=== PATIENT | female | born 1960 | race Caucasian/White ===

== ENCOUNTER 2016-11-30 14:08 | Inpatient (IN) | payer MEDICARE, MEDICAID ==
[~2016-11-30] VITALS: Ht 167.6 cm; Wt 164.2 kg
--- NOTE | ~2016-11-30 | PR ---
[place], [place] [facility]GR[id number] #: [id number] ROOM: 521 DOCTOR: GAGAN SMITH,DECEMBER BIRTHDATE: [birth year] DOS: 12/06/2016 SUBJECTIVE: The patient is a 56-year-old morbidly obese female who is being followed for cellulitis of her bilateral lower extremities and tinea pedis. She has been having improvement of the swelling, pain and redness of her bilateral lower legs. The erythema does extend into her thighs. Denies any fevers, chills, nausea, vomiting or diarrhea. No cough or shortness of breath. No rash or itch. LABORATORY DATA: She has had no labs since this 12/04/2016. Her blood cultures are sterile. PHYSICAL EXAMINATION: VITAL SIGNS: Show temperature 98.3, pulse 64, respirations 18, BP 138/76. GENERAL: A 56-year-old morbidly obese female in no acute distress. HEAD, EYES, EARS, NOSE, AND THROAT: Normocephalic. No thrush. LUNGS: Clear to auscultation bilaterally. Respirations even and unlabored. HEART: Regular rhythm. No murmur appreciated. ABDOMEN: Soft, obese, nontender. EXTREMITIES: +3 to 4 edema bilateral lower extremities with erythema from ankles up to mid thighs especially medially, resolving tinea pedis. No open wounds or areas of fluctuance to indicate abscess. ASSESSMENT: Cellulitis of the bilateral lower extremities improving on Ancef. PLAN: We will continue the Ancef. We would anticipate discharging with high-dose Keflex in 24-48 hours. Case discussed with Dr. Angela Lopez. DECEMBER LUIS FARAH ANGELA LOPEZ MD CM:PNTRANS 31 10 GAGAN SMITH 12/06/161910 interface
--- NOTE | ~2016-11-30 | PR ---
[place], [place] PROGRESS NOTE NAME: VICTORINA MARES [facility] #: [id number] UNIT #: [id number] ROOM: 521 DOCTOR: HIWOT CALABRESE M.D. BIRTHDATE: [birth year] DOS: 12/08/2016 WOUND CARE FOLLOWUP NOTE SUBJECTIVE: The patient says she is feeling better. She says her legs are looking better. She denies any complaints with her abdominal wounds. Currently, she is just using some 4 x 4s to keep the fold . Her temp is 98.1, pulse of 71, respirations 18, blood pressure is 120/67. Abdominal wounds were examined. They do not appear to be open at this time. They seemed to have epithelialized. There is no sign of cellulitis with these abdominal wounds. Her lower extremity redness also appears improved. ASSESSMENT AND PLAN: Stage 2 ulcerations of the abdominal folds. They seemed to have epithelialized. They are not open. I would go ahead and discontinue the Aquacel Ag. I would recommend a drying powder such as Zeasorb prevention powder to be used daily as well as some 4 x 4s just to keep the skin fold . HIWOT CALABRESE MD CM:IVAN 1151 50 HIWOT CALABRESE M.D. 12/08/16 215 interface
--- NOTE | ~2016-11-30 | CON ---
[place], [place] REPORT OF CONSULTATION NAME: VICTORINA MARES [facility] #: [id number] UNIT #: [id number] ROOM: 521 DOCTOR: BHARATI HardenHIWOT BIRTHDATE: [birth year] DOS: 12/01/2016 WOUND CARE CONSULTATION HISTORY OF PRESENT ILLNESS: This is a 56-year-old female who presented to the Emergency Department with cellulitis of her bilateral lower extremities. She was admitted with subjective fevers and chills and failure of outpatient therapy. The patient was also noted to have abdominal wounds of her abdominal folds. This is why Wound Care has been consulted. PAST MEDICAL HISTORY: Significant for anxiety; asthma; chest pains; congestive heart failure; chronic kidney disease; depression; diabetes; edema; morbid obesity; GERD; obstructive sleep apnea, oxygen dependent; protein calorie malnutrition, moderate; history of venous stasis; status post rhinoplasty; hysterectomy; tonsillectomy; previous . She states she has had problems with cellulitis in the past as well as wounds of her abdominal folds. FAMILY HISTORY: Significant for diabetes, coronary artery disease, CVA in her father, diabetes and coronary artery disease in her mother. SOCIAL HISTORY: She does not smoke or drink. ALLERGIES: QUININE severe, PENICILLINS, CATGUT SUTURES, BACITRACIN, IODINE, NEOMYCIN, POLYMYXIN, AMPICILLIN, DIAZEPAM, HYDROMORPHONE, AND MEPERIDINE. CURRENT MEDICATIONS: That have been ordered are as follows 1600 mg of Neurontin p.o. daily, 800 mg of Neurontin at 2:00; potassium 20 t.i.d., MiraLax 17 grams daily, Theragran one tablet daily, furosemide 20 p.o. b.i.d., Pepcid 20 daily, Lovenox 40 subq daily, Cymbalta 60 p.o. daily, Zyrtec 10 mg daily, aspirin 81 daily, Wellbutrin 150 daily, Protonix 40 daily, Neurontin 2000 mg at bedtime, Desyrel 150 mg at bedtime, clindamycin 600 mg IV q.8 hours, MS Contin 30 mg p.o. q.12h., Dulera q.12h. inhalation, Xanax 0.25 q.12h., Maxipime, which has been discontinued; albuterol nebulizers 2.5 mg daily, [place] 2 tablets q.8 p.r.n., Humalog sliding scale. REVIEW OF SYSTEMS: She had subjective fevers and chills and pain. She does report falling approximately 2 days ago, which she may have injured her right leg. She is not quite sure if she had an open wound or not. She says her left leg is feeling much better. However, she still has a lot of discomfort with her right lower extremity. She has a chronic cough. She denies any nausea or vomiting or diarrhea at the present time. She says her abdominal wounds are definitely improving and getting much smaller. She has had them for about 2-3 weeks. She follows up with Dr. Borrero in [facility]. She has been using at one point Aquacel she thinks and then it was later switched to a powder which is I believe a collagen dressing. At one point, she was on antifungal as well, which did not seem to help her. In any case, those wounds are definitely getting better. PHYSICAL EXAMINATION: VITAL SIGNS: Her temperature is 97.1, pulse of 66, respirations 20, blood [place], [place] REPORT OF CONSULTATION NAME: VICTORINA MARES UNIT #: [id number] ROOM: 521 DOCTOR: HIWOT CALABRESE M.D. BIRTHDATE: [birth year] pressure is 108/64. GENERAL: This is a pleasant female in no acute distress. She is morbidly obese, appears chronically debilitated, pleasant, and cooperative. NECK: There is no JVD. LUNGS: Clear to auscultation; however, she does provoke a very dry cough when she takes deep breaths. CARDIOVASCULAR: S1, S2 regular rate and rhythm. ABDOMEN: Morbidly obese. She has several small areas. EXTREMITIES: There was an area of what appears to be a fissure type injury on the left part of the abdominal fold that is approximately 1.5-2 cm in length. There is very minimal width to it. No depth to it. It looks like it is partially epithelialized at this time. Not cellulitic. There is no purulence. There is another very small area that is approximately the size of a smaller than a dime. I would say on the right lower abdominal fold that is still somewhat open, but does not appear purulent, does not appear infected. There is no overt necrotic tissue. There are a few punctate lesions scattered throughout the lower. Her bilateral lower extremities, there is evidence of venous stasis, chronic edema. It is pitting. The right leg seems more swollen than the left. The left leg is definitely not as red as the right. The right leg is still markedly erythematous and tender and warm. It is circumferential around the almost entire leg. There is also evidence of venous stasis disease. Pedal pulses are difficult to feel, but her feet are warm and toes are warm. She has good capillary refill. There is no calf tenderness upon examination and there is really no open areas on her legs that I could see. She does have she states a feeling of a she thought it was a firm, tender feeling on the left medial calf area. It is hard for me to feel something there, but I do feel a slight variation in the firmness of the calf around this area, but it does not appear to be overtly fluctuant or markedly indurated or markedly tender at this time. LABORATORY DATA: Show white count of 6, hemoglobin of 12, platelets of 202. BUN is 14, creatinine 1.6, HDL 67, B12 was high, vitamin D25 is low at 28. I do not appreciate a recent venous Doppler. ASSESSMENT AND PLAN: Pressure ulcers of the abdominal folds that do appear to be epithelializing. At this point, they do seem somewhat superficial. According to the patient and her , they were fairly much larger and much more open before. I would use a silver dressing to help absorb any drainage. I think are Aquacel silver rope would actually be good for this area and also we should pad it with some 4 x 4s to try to keep the abdominal fold , but it does appear to be in the healing stages at this time. As far as her cellulitis goes, I do not appreciate any open wounds at this time, but due to her complaints of continued pain and discomfort and swelling, I did take the liberty of ordering a venous Doppler for this to be done in the morning. She is on antibiotics per the medical team. I will follow along with you. ADDENDUM I just wanted to mention that I did discuss if she has ever had compression for her lower extremity swelling and she said she is really unable to tolerate it. She says even just DEO juan manuel digs quite in to her and causes further problems, so [place], [place] REPORT OF CONSULTATION NAME: VICTORINA MARES UNIT #: [id number] ROOM: 521 DOCTOR: BHARATI Harden,HIWOT BIRTHDATE: [birth year] she is pretty adamant about not wanting any type of compression at this time. HIWOT CALABRESE MD CM:CONSTR:REPORT OF CONSULTATION 1835 12/09/16 1500 interface
--- NOTE | ~2016-11-30 | PR ---
[place], [place] PROGRESS NOTE NAME: VICTORINA MARES UNIT #: [id number] ROOM: 521 DOCTOR: JESSICA PABLO,ANGELA Hart BIRTHDATE: [birth year] DOS: 12/06/2016 ADDENDUM I agree with the above described plans in the progress note of Tonia Mckeon on 12/06/2016. We will follow up clinically and make adjustments accordingly. ANGELA LOPEZ MD CM:PNTRANS 16 36 ANGELA LOPEZ MD 12/06/161936 interface
[~2016-11-30 14:08] MED LIST: ADVAIR DISKUS 51 DSK IH; ADVIL200 MG PO; ALDACTONE25 MG PO; ANTIVERT/2525 MG PO; ASPIR 8181 MG PO; ATIVAN0.5 MG PO; Albuterol Sulfat3 M1 IH; BACTRIM DS 8001 TA1 PO; BRAIN MIGHT-DH1 EACH PO; BUMETANIDE1 MG PO; CEFTRIAXON2 GM/50 ML IV; CELEBREX200 MG PO; CENTRUM1 TA1 PO; CEPHALEXIN500 M1 PO; CIPRO500 MG PO; CIPROFLOXACIN500 MG PO; CLEOCIN HCL300 MG PO; CLINDAMYCIN HC300 MG PO; COLACE100 MG PO; CYMBALTA60 MG PO; DESYREL DIVIDO150 MG PO; DIFLUCAN100 MG PO; DIFLUCAN150 MG PO; DOXYCYCLINE100 M3 PO; DUONEB 3 MG/3 ML3 M1 INH; FLEXERIL10 MG PO; FLEXERIL5 MG; FLUCONAZOLE100 MG PO; IBU-8800 MG PO; K-Dur 20MEQ20 MEQ PO; KCL PO; KEFLEX500 M1 PO; KEFLEX500 MG PO; KENALOG0.5% TP; LASIX20 MG PO; LOMOTIL 0.025 M1 TAB PO; MAALOX ADVANCE355 ML PO; MACROBID100 M1 PO; MEDROL DOSEPAK4 MG PO; MIRALAX17 GM PO; MOBIC15 MG PO; MS CONTIN15 MG PO; NEURONTIN800 MG PO; NEXIUM40 MG PO; POTASSIUM CHLO20 ME4 PO; PREDNICOT10 MG PO; PREDNISONE10 MG PO; PREMARIN V0.625 MG/G V; PREMARIN0.3 MG PO; PRILOSEC40 MG PO; PROAIR HFA0.09 MG/AC IH; PYRIDIUM200 MG PO; ROBITUSSIN AC 110 ML PO; SPECIAL C 5001 EACH PO; SYMBICORT1 AE1 INH; TORADOL10 MG PO; ULTRAM50 MG PO; VIBRAMYCIN100 MG PO; VICO10300 PO; VICODIN 5/500 505 MG PO; VICODIN HP 6601 TA1 PO; VICODIN HP 6601 TAB PO; VISTARIL25 MG PO; VOLTAREN T; WELLBUTRIN SR150 MG PO; WELLBUTRIN XL300 MG PO; WELLBUTRIN75 MG PO; XANAX0.25 MG PO; XODOL PO; ZANTAC 150150 MG PO; ZITHROMAX Z PA250 MG PO; ZOFRAN ODT4 MG SL; ZOFRAN4 MG PO; ZYRTEC10 M1 PO; Zofran4 MG PO
[2016-11-30 14:13] VITALS: BP 150/56
[2016-11-30] MEDS ORDERED: [UNRECOGNIZED DRUG - OTHER] T (14:17)
[2016-11-30] MEDS ORDERED: NYSTATIN60 GM T (14:17)
[2016-11-30 15:02] LABS: BASO % 0.6 % (0.0-1.0); EOS # 0.2 10*3/uL (0.0-0.4); EOS % 2.6 % (1.0-4.0); HEMATOCRIT 37.5 % (37.0-47.0); HEMOGLOBIN 12.5 g/dl (12.0-16.0); LYMPH % 28.4 % (27.0-41.0); MEAN CELL VOLUME 93.8 fl (81.0-99.0); MEAN CORPUSCULAR HGB 31.3 pg (27.0-31.0); MEAN CORPUSCULAR HGB CONC 33.3 g/dl (33.0-37.0); MEAN PLATELET VOLUME 8.9 fl (9.6-12.3); MONO # 0.6 10*3/uL (0.1-1.0); MONO % 9.2 % (3.0-9.0); NEUT % 58.9 % (47.0-73.0); PLATELET COUNT AUTOMATED 216 10*3/uL (130-400); RED CELL DISTRI WIDTH 12.6 % (0-14.5); WHITE BLOOD COUNT 6.9 10*3/uL (4.8-10.8)
[2016-11-30 15:18] LABS: ALBUMIN 3.3 gm/dl (3.1-4.5); ALKALINE PHOSPHATASE 81 U/L (45-117); BILIRUBIN, TOTAL 0.6 mg/dl (0.2-1.0); BUN 16 mg/dl (7-24); CARBON DIOXIDE 33 mmol/L (21-32); CHLORIDE 102 mmol/L (98-107); CPK 142 U/L (26-192); EST GLOM FILT AFRICAN AMERICAN > 60 ml/min; GLUCOSE 82 mg/dL (65-99); LDH 220 U/L (84-246); MAGNESIUM 2.3 mg/dL (1.5-2.1); POTASSIUM 4.2 mmol/L (3.5-5.1); SGOT/AST 21 IU/L (3-35); SGPT/ALT 24 U/L (12-78); SODIUM 142 mmol/L (136-145); TOTAL PROTEIN 7.3 gm/dL (6.4-8.2)
[2016-11-30 15:20] LABS: CKMB 1.9 ng/ml (0.5-3.6)
[2016-11-30 15:23] LABS: TROPONIN I < 0.015 ng/ml (<0.045)
[2016-11-30 17:03] VITALS: BP 125/54
[2016-11-30 20:00] VITALS: BP 115/67
[2016-12-01] VITALS: BP 95/51
[2016-12-01 06:26] LABS: BASO % 0.5 % (0.0-1.0); EOS # 0.2 10*3/uL (0.0-0.4); HEMATOCRIT 37.3 % (37.0-47.0); HEMOGLOBIN 12.1 g/dl (12.0-16.0); LYMPH # 2.7 10*3/uL (1.3-4.4); LYMPH % 44.8 % (27.0-41.0); MEAN CELL VOLUME 94.7 fl (81.0-99.0); MEAN CORPUSCULAR HGB 30.7 pg (27.0-31.0); MEAN CORPUSCULAR HGB CONC 32.4 g/dl (33.0-37.0); MEAN PLATELET VOLUME 9.3 fl (9.6-12.3); MONO # 0.5 10*3/uL (0.1-1.0); MONO % 8.2 % (3.0-9.0); NEUT # 2.6 10*3/uL (2.3-7.9); NEUT % 43.3 % (47.0-73.0); PLATELET COUNT AUTOMATED 202 10*3/uL (130-400); RED BLOOD COUNT 3.94 10*6/uL (4.10-5.10)
[2016-12-01 06:56] LABS: INTERNATIONAL NORM RATIO 0.9 (2.0-3.5); PROTHROMBIN TIME 9.7 SECONDS (9.0-12.4)
[2016-12-01 06:57] LABS: BUN 14 mg/dl (7-24); CARBON DIOXIDE 33 mmol/L (21-32); CHLORIDE 103 mmol/L (98-107); CHOLESTEROL 158 mg/dL (<200); EST GLOM FILT AFRICAN AMERICAN > 60 ml/min; GLUCOSE 86 mg/dL (65-99); HDL CHOLESTEROL 67 mg/dl (40-60); LDL CHOLESTEROL 73 mg/dL (9-159); POTASSIUM 4.1 mmol/L (3.5-5.1); SODIUM 142 mmol/L (136-145); TRIGLYCERIDES 90 mg/dl (<150); VLDL CHOLESTEROL 18 mg/dL (6-40)
[2016-12-01 07:20] LABS: HEMOGLOBIN A1c 5.5 % (4.8-5.6)
[2016-12-01 07:29] LABS: VITAMIN D, 25-HYDROXY 28.3 ng/mL (30-100)
[2016-12-01 07:31] LABS: FOLIC ACID > 24.00 ng/mL (>5.38)
[2016-12-01 08:00] VITALS: BP 100/72
[2016-12-01] MEDS ORDERED: NEURONTIN800 MG PO (09:22)
[2016-12-01 12:00] VITALS: BP 108/50
[2016-12-01 16:00] VITALS: BP 108/64
[2016-12-01 20:00] VITALS: BP 127/66
[2016-12-02] VITALS: BP 117/56
[2016-12-02 08:00] VITALS: BP 100/50
[2016-12-02 12:00] VITALS: BP 137/75
[2016-12-02 16:00] VITALS: BP 101/57
[2016-12-02 20:00] VITALS: BP 117/63
[2016-12-03] VITALS: BP 134/76
[2016-12-03 07:15] LABS: BUN 12 mg/dl (7-24); CARBON DIOXIDE 30 mmol/L (21-32); CHLORIDE 104 mmol/L (98-107); EST GLOM FILT AFRICAN AMERICAN > 60 ml/min; GLUCOSE 85 mg/dL (65-99); POTASSIUM 3.7 mmol/L (3.5-5.1); SODIUM 143 mmol/L (136-145)
[2016-12-03 08:00] VITALS: BP 114/76
[2016-12-03 12:00] VITALS: BP 117/63
[2016-12-03 16:00] VITALS: BP 108/55
[2016-12-03 20:00] VITALS: BP 145/75
[2016-12-04] VITALS: BP 131/69
[2016-12-04 06:04] LABS: BASO % 0.5 % (0.0-1.0); EOS # 0.2 10*3/uL (0.0-0.4); HEMATOCRIT 36.8 % (37.0-47.0); HEMOGLOBIN 11.8 g/dl (12.0-16.0); LYMPH # 2.1 10*3/uL (1.3-4.4); LYMPH % 35.9 % (27.0-41.0); MEAN CELL VOLUME 95.6 fl (81.0-99.0); MEAN CORPUSCULAR HGB 30.6 pg (27.0-31.0); MEAN CORPUSCULAR HGB CONC 32.1 g/dl (33.0-37.0); MEAN PLATELET VOLUME 9.3 fl (9.6-12.3); MONO # 0.4 10*3/uL (0.1-1.0); MONO % 7.5 % (3.0-9.0); NEUT % 51.9 % (47.0-73.0); PLATELET COUNT AUTOMATED 202 10*3/uL (130-400); RED BLOOD COUNT 3.85 10*6/uL (4.10-5.10); RED CELL DISTRI WIDTH 12.6 % (0-14.5); WHITE BLOOD COUNT 5.7 10*3/uL (4.8-10.8)
[2016-12-04 06:52] LABS: BUN 13 mg/dl (7-24); EST GLOM FILT AFRICAN AMERICAN > 60 ml/min
[2016-12-04 08:00] VITALS: BP 110/50
[2016-12-04 12:00] VITALS: BP 127/79
[2016-12-04 16:00] VITALS: BP 91/63
[2016-12-04 20:00] VITALS: BP 116/50
[2016-12-05] VITALS: BP 144/81
[2016-12-05 08:00] VITALS: BP 111/58
[2016-12-05 12:00] VITALS: BP 134/72
[2016-12-05 16:00] VITALS: BP 115/50
[2016-12-05 20:00] VITALS: BP 108/60
[2016-12-06] VITALS: BP 137/64
[2016-12-06 08:00] VITALS: BP 94/80
[2016-12-06 12:00] VITALS: BP 130/88
[2016-12-06 16:00] VITALS: BP 138/76
[2016-12-06 20:00] VITALS: BP 148/94
[2016-12-07] VITALS: BP 109/65
[2016-12-07 06:09] LABS: BASO % 0.5 % (0.0-1.0); EOS # 0.2 10*3/uL (0.0-0.4); EOS % 3.9 % (1.0-4.0); HEMATOCRIT 39.8 % (37.0-47.0); HEMOGLOBIN 12.8 g/dl (12.0-16.0); LYMPH # 2.2 10*3/uL (1.3-4.4); LYMPH % 36.6 % (27.0-41.0); MEAN CELL VOLUME 95.4 fl (81.0-99.0); MEAN CORPUSCULAR HGB 30.7 pg (27.0-31.0); MEAN CORPUSCULAR HGB CONC 32.2 g/dl (33.0-37.0); MEAN PLATELET VOLUME 9.5 fl (9.6-12.3); MONO # 0.5 10*3/uL (0.1-1.0); MONO % 7.9 % (3.0-9.0); NEUT % 50.9 % (47.0-73.0); PLATELET COUNT AUTOMATED 214 10*3/uL (130-400); RED BLOOD COUNT 4.17 10*6/uL (4.10-5.10); RED CELL DISTRI WIDTH 12.6 % (0-14.5)
[2016-12-07 06:37] LABS: EST GLOM FILT AFRICAN AMERICAN > 60 ml/min
[2016-12-07 08:00] VITALS: BP 98/48
[2016-12-07 12:00] VITALS: BP 107/58
[2016-12-07 16:00] VITALS: BP 120/68
[2016-12-07 20:00] VITALS: BP 102/51
[2016-12-08] VITALS: BP 143/76
[2016-12-08 08:00] VITALS: BP 120/67
[2016-12-08 12:00] VITALS: BP 126/68
[2016-12-08] MEDS ORDERED: CEFAZOLIN2 GM/20 ML IV (13:24)
[2016-12-08 16:00] VITALS: BP 127/78
[2016-12-08 20:00] VITALS: BP 110/73
[2016-12-09] VITALS: BP 134/71
[2016-12-09 08:00] VITALS: BP 102/56
[2016-12-09] MEDS ORDERED: D-1000 185 MG-11 TAB PO (10:02)
[2016-12-09] MEDS ORDERED: DIFLUCAN150 MG PO (10:59)
== END 2016-12-09 11:30 | disposition home health service (06) | DRG 603 ==
LOC: ED 14:08 → 5E 15:54 → EDHOLD 15:54 → 5E 16:16
PROVIDERS: Internal Medicine; Physician Assistant; Student in an Organized Health Care Education/Training Program
PROC: 5A09357 Assistance with Respiratory Ventilation, Less than 24 Consecutive Hours, Continuous Positive Airway Pressure (ICD-10-PCS; principal; 2016-12-08)
PROC: 02HV33Z Insertion of Infusion Device into Superior Vena Cava, Percutaneous Approach (ICD-10-PCS; principal; 2016-12-08)
DX: L03.116 Cellulitis of left lower limb (principal); J96.11 Chronic respiratory failure with hypoxia; E44.0 Moderate protein-calorie malnutrition; I50.32 Chronic diastolic (congestive) heart failure; I13.0 Hypertensive heart and chronic kidney disease with heart failure and stage 1 through stage 4 chronic kidney disease, or unspecified chronic kidney disease; Z68.43 Body mass index [BMI] 50.0-59.9, adult; E11.65 Type 2 diabetes mellitus with hyperglycemia; E83.41 Hypermagnesemia; J45.20 Mild intermittent asthma, uncomplicated; F41.9 Anxiety disorder, unspecified; F32.9 Major depressive disorder, single episode, unspecified; K21.9 Gastro-esophageal reflux disease without esophagitis; I87.8 Other specified disorders of veins; G47.33 Obstructive sleep apnea (adult) (pediatric); E66.01 Morbid (severe) obesity due to excess calories; E55.9 Vitamin D deficiency, unspecified; E11.22 Type 2 diabetes mellitus with diabetic chronic kidney disease; L03.115 Cellulitis of right lower limb; L89.892 Pressure ulcer of other site, stage 2; E11.622 Type 2 diabetes mellitus with other skin ulcer; N18.3 Chronic kidney disease, stage 3 (moderate); Z88.0 Allergy status to penicillin; Z88.8 Allergy status to other drugs, medicaments and biological substances; Z91.048 Other nonmedicinal substance allergy status; Z88.1 Allergy status to other antibiotic agents; Z91.041 Radiographic dye allergy status; Z82.3 Family history of stroke; Z99.81 Dependence on supplemental oxygen; Z82.49 Family history of ischemic heart disease and other diseases of the circulatory system; Z83.3 Family history of diabetes mellitus; Z90.710 Acquired absence of both cervix and uterus; Z79.1 Long term (current) use of non-steroidal anti-inflammatories (NSAID); Z79.82 Long term (current) use of aspirin; Z79.899 Other long term (current) drug therapy

== ENCOUNTER 2016-12-20 14:21 | Emergency (ER) | payer MEDICARE, MEDICAID ==
[~2016-12-20] VITALS: Ht 167.6 cm; Wt 161.5 kg
[~2016-12-20 14:21] MED LIST changes: +CEFAZOLIN2 GM/20 ML IV; +D-1000 185 MG-11 TAB PO; +NYSTATIN60 GM T; +[UNRECOGNIZED DRUG - OTHER] T
[2016-12-20 14:35] VITALS: BP 151/78
[2016-12-20 15:22] LABS: BASO % 0.5 % (0.0-1.0); EOS # 0.2 10*3/uL (0.0-0.4); EOS % 3.5 % (1.0-4.0); HEMATOCRIT 38.5 % (37.0-47.0); HEMOGLOBIN 12.6 g/dl (12.0-16.0); LYMPH # 2.3 10*3/uL (1.3-4.4); LYMPH % 35.5 % (27.0-41.0); MEAN CELL VOLUME 93.9 fl (81.0-99.0); MEAN CORPUSCULAR HGB 30.7 pg (27.0-31.0); MEAN CORPUSCULAR HGB CONC 32.7 g/dl (33.0-37.0); MEAN PLATELET VOLUME 9.2 fl (9.6-12.3); MONO # 0.5 10*3/uL (0.1-1.0); MONO % 7.3 % (3.0-9.0); NEUT # 3.5 10*3/uL (2.3-7.9); PLATELET COUNT AUTOMATED 197 10*3/uL (130-400); RED CELL DISTRI WIDTH 12.3 % (0-14.5); WHITE BLOOD COUNT 6.6 10*3/uL (4.8-10.8)
[2016-12-20 15:32] LABS: INTERNATIONAL NORM RATIO 0.9 (2.0-3.5); PROTHROMBIN TIME 9.9 SECONDS (9.0-12.4)
[2016-12-20 15:38] LABS: ALBUMIN 3.6 gm/dl (3.1-4.5); ALKALINE PHOSPHATASE 89 U/L (45-117); BILIRUBIN, TOTAL 0.4 mg/dl (0.2-1.0); BUN 13 mg/dl (7-24); CARBON DIOXIDE 35 mmol/L (21-32); CHLORIDE 103 mmol/L (98-107); EST GLOM FILT AFRICAN AMERICAN > 60 ml/min; GLUCOSE 99 mg/dL (65-99); POTASSIUM 4.8 mmol/L (3.5-5.1); SGOT/AST 25 IU/L (3-35); SGPT/ALT 9 U/L (12-78); SODIUM 145 mmol/L (136-145); TOTAL PROTEIN 7.3 gm/dL (6.4-8.2)
== END 2016-12-20 17:15 | disposition home or self-care (01) ==
LOC: ED 14:21
PROVIDERS: Registered Nurse
DX: M79.601 Pain in right arm (principal); Z88.0 Allergy status to penicillin; Z88.1 Allergy status to other antibiotic agents; Z88.6 Allergy status to analgesic agent; Z88.8 Allergy status to other drugs, medicaments and biological substances; Z79.899 Other long term (current) drug therapy; Z79.82 Long term (current) use of aspirin

== ENCOUNTER 2016-12-22 18:01 | Emergency (ER) | payer MEDICARE, MEDICAID ==
[~2016-12-22] VITALS: Wt 161.5 kg
[2016-12-22 18:19] VITALS: BP 126/53
== END 2016-12-22 20:47 | disposition home or self-care (01) ==
LOC: ED 18:01
DX: I82.611 Acute embolism and thrombosis of superficial veins of right upper extremity (principal); Z79.82 Long term (current) use of aspirin; Z88.0 Allergy status to penicillin; Z88.1 Allergy status to other antibiotic agents; Z88.6 Allergy status to analgesic agent; Z88.8 Allergy status to other drugs, medicaments and biological substances; Z79.899 Other long term (current) drug therapy

== ENCOUNTER 2016-12-26 13:48 | Emergency (ER) | payer MEDICARE, MEDICAID ==
[~2016-12-26] VITALS: Ht 167.6 cm; Wt 161.5 kg
[2016-12-26 13:58] VITALS: BP 100/46
[2016-12-26] MEDS ORDERED: KEFLEX500 M1 PO (14:02)
[2016-12-26] MEDS ORDERED: PREMARIN0.3 M1 PO (14:02)
[2016-12-26 14:39] LABS: INTERNATIONAL NORM RATIO 0.9 (2.0-3.5); PROTHROMBIN TIME 9.7 SECONDS (9.0-12.4)
[2016-12-26 14:40] LABS: BASO % 0.5 % (0.0-1.0); EOS # 0.3 10*3/uL (0.0-0.4); EOS % 4.6 % (1.0-4.0); HEMATOCRIT 37.9 % (37.0-47.0); HEMOGLOBIN 12.5 g/dl (12.0-16.0); LYMPH % 32.3 % (27.0-41.0); MEAN CORPUSCULAR HGB 30.3 pg (27.0-31.0); MEAN PLATELET VOLUME 9.2 fl (9.6-12.3); MONO # 0.6 10*3/uL (0.1-1.0); MONO % 8.8 % (3.0-9.0); NEUT # 3.3 10*3/uL (2.3-7.9); NEUT % 53.2 % (47.0-73.0); PLATELET COUNT AUTOMATED 189 10*3/uL (130-400); RED BLOOD COUNT 4.12 10*6/uL (4.10-5.10); RED CELL DISTRI WIDTH 12.5 % (0-14.5); WHITE BLOOD COUNT 6.3 10*3/uL (4.8-10.8)
[2016-12-26 14:48] LABS: ALBUMIN 3.3 gm/dl (3.1-4.5); ALKALINE PHOSPHATASE 84 U/L (45-117); BILIRUBIN, TOTAL 0.4 mg/dl (0.2-1.0); BUN 15 mg/dl (7-24); C-REACTIVE PROTEIN 2.23 MG/DL (0-0.3); CARBON DIOXIDE 37 mmol/L (21-32); CHLORIDE 104 mmol/L (98-107); EST GLOM FILT AFRICAN AMERICAN > 60 ml/min; GLUCOSE 80 mg/dL (65-99); POTASSIUM 4.5 mmol/L (3.5-5.1); SGOT/AST 18 IU/L (3-35); SGPT/ALT 13 U/L (12-78); SODIUM 143 mmol/L (136-145); TOTAL PROTEIN 7.2 gm/dL (6.4-8.2)
== END 2016-12-26 16:16 | disposition home or self-care (01) ==
LOC: ED 13:48
PROVIDERS: Physician Assistant
DX: M25.562 Pain in left knee (principal); Z79.899 Other long term (current) drug therapy; Z79.82 Long term (current) use of aspirin; Z88.0 Allergy status to penicillin; Z88.1 Allergy status to other antibiotic agents; Z88.8 Allergy status to other drugs, medicaments and biological substances; Z88.6 Allergy status to analgesic agent

== ENCOUNTER 2017-05-27 13:35 | Emergency (ER) | payer MEDICARE ==
[~2017-05-27] VITALS: Ht 167.6 cm; Wt 166.9 kg
[~2017-05-27 13:35] MED LIST changes: +PREMARIN0.3 M1 PO
[2017-05-27 13:48] VITALS: BP 116/59
[2017-05-27] MEDS ORDERED: KEFLEX500 M1 PO (14:12)
[2017-05-27] MEDS ORDERED: DIFLUCAN150 MG PO (14:12)
== END 2017-05-27 14:23 | disposition home or self-care (01) ==
LOC: ED 13:35
DX: L03.116 Cellulitis of left lower limb (principal); K08.89 Other specified disorders of teeth and supporting structures; J44.9 Chronic obstructive pulmonary disease, unspecified; Z98.890 Other specified postprocedural states; Z90.710 Acquired absence of both cervix and uterus; Z96.653 Presence of artificial knee joint, bilateral; Z90.89 Acquired absence of other organs; Z79.82 Long term (current) use of aspirin; Z79.899 Other long term (current) drug therapy; Z88.0 Allergy status to penicillin; Z88.1 Allergy status to other antibiotic agents; Z88.5 Allergy status to narcotic agent; Z88.6 Allergy status to analgesic agent; Z99.81 Dependence on supplemental oxygen

== ENCOUNTER → 2017-06-17 | Outpatient (CLI) | payer MEDICARE ==
[2017-06-17 08:49] LABS: BASO % 0.5 % (0.0-1.0); EOS # 0.2 10*3/uL (0.0-0.4); EOS % 3.7 % (1.0-4.0); HEMATOCRIT 39.4 % (37.0-47.0); HEMOGLOBIN 12.6 g/dl (12.0-16.0); LYMPH # 2.6 10*3/uL (1.3-4.4); LYMPH % 42.1 % (27.0-41.0); MEAN CELL VOLUME 95.2 fl (81.0-99.0); MEAN CORPUSCULAR HGB 30.4 pg (27.0-31.0); MEAN PLATELET VOLUME 9.6 fl (9.6-12.3); MONO # 0.5 10*3/uL (0.1-1.0); MONO % 7.9 % (3.0-9.0); NEUT # 2.8 10*3/uL (2.3-7.9); NEUT % 45.3 % (47.0-73.0); PLATELET COUNT AUTOMATED 194 10*3/uL (130-400); RED BLOOD COUNT 4.14 10*6/uL (4.10-5.10); RED CELL DISTRI WIDTH 12.7 % (0-14.5); WHITE BLOOD COUNT 6.2 10*3/uL (4.8-10.8)
[2017-06-17 09:02] LABS: CHOLESTEROL 166 mg/dL (<200); HDL CHOLESTEROL 49 mg/dl (40-60); LDL CHOLESTEROL 84 mg/dL (9-159); TRIGLYCERIDES 165 mg/dl (<150); VLDL CHOLESTEROL 33 mg/dL (6-40)
[2017-06-17 09:06] LABS: ALBUMIN 3.4 gm/dl (3.1-4.5); ALKALINE PHOSPHATASE 94 U/L (45-117); BILIRUBIN, DIRECT 0.2 mg/dL (0.0-0.2); BUN 15 mg/dl (7-24); CHLORIDE 100 mmol/L (98-107); CREATININE 1.11 mg/dL (0.55-1.02); IRON 73 ug/dL (50-170); MAGNESIUM 2.3 mg/dL (1.5-2.1); POTASSIUM 4.1 mmol/L (3.5-5.1); SGOT/AST 24 IU/L (3-35); SGPT/ALT 22 U/L (12-78); SODIUM 141 mmol/L (136-145); TOTAL IRON BINDING CAPACITY 255 ug/dl (250-450); TOTAL PROTEIN 7.6 gm/dL (6.4-8.2)
[2017-06-17 09:58] LABS: FERRITIN 40.1 ng/mL (10.0-291.0); PTH INTACT 119.1 pg/mL (14.0-72.0); VITAMIN D, 25-HYDROXY 27.4 ng/mL (30-100)
== END | disposition home or self-care (01) ==
LOC: LAB 07:56
PROVIDERS: Internal Medicine; Internal Medicine Nephrology
DX: I12.9 Hypertensive chronic kidney disease with stage 1 through stage 4 chronic kidney disease, or unspecified chronic kidney disease (principal); N18.3 Chronic kidney disease, stage 3 (moderate); E11.22 Type 2 diabetes mellitus with diabetic chronic kidney disease; E11.65 Type 2 diabetes mellitus with hyperglycemia; E55.9 Vitamin D deficiency, unspecified; D63.1 Anemia in chronic kidney disease

== ENCOUNTER 2017-07-26 11:45 | Inpatient (IN) | payer MEDICARE ==
[~2017-07-26] VITALS: Ht 170.1 cm; Wt 168.0 kg
--- NOTE | ~2017-07-26 | CON ---
[place], [place] REPORT OF CONSULTATION NAME: VICTORINA MARES [facility] #: [id number] UNIT #: [id number] ROOM: 426 DOCTOR: JERO SORIANO MD BIRTHDATE: [birth year] DOS: 07/27/2017 REASON FOR CONSULTATION: To assess the patient for ongoing acute exacerbation of bronchial asthma, failed outpatient treatment. HISTORY OF PRESENT ILLNESS: A 57-year-old white female known to me with past history of chronic severe hypoxic respiratory failure, uncomplicated severe persistent bronchial asthma and obstructive sleep apnea disorder. She has been seen in my office recently. The patient reported having gradual increase in the respiratory symptoms for a few days. She has been assessed in the office. The patient noted with acute exacerbation of bronchial asthma, started on the corticosteroids and also ordered the antibiotics. The patient has taken the medication and failed to respond to the treatment. The symptoms have been noted progressively worsening. She came into the Emergency Room for further assessment. She was seen in my office on 07/15/2017. She was noted with symptoms of severe coughing. The patient unable to expectorate sputum. Denies symptoms of chest pain. Shortness of breath was noted with minimal exertion. REVIEW OF SYSTEMS: CONSTITUTIONAL SYMPTOMS: Progressive fatigue and tiredness occurred in the last several days. Denies any fever or chills. EYES: Denies any burning, redness, or tenderness. EARS, NOSE, AND THROAT SYMPTOMS: Denies sore throat, hoarseness, otalgia, postnasal drainage or epistaxis. CARDIOVASCULAR: Denies anginal pain, edema or pain of the lower extremities. GASTROINTESTINAL: Dysphagia, nausea, vomiting, diarrhea, abdominal pain, hematemesis, melena, hematochezia, chronic obesity, known. GENITOURINARY: No dysuria, suprapubic pain, hematuria. MUSCULOSKELETAL: Acute joint pain, redness, tenderness. SKIN: No lesions or rashes described. CENTRAL NERVOUS SYSTEM: Denies dizziness, headache, diplopia or syncopal episodes. Remaining systems were reviewed. They were noted all negative. PAST MEDICAL HISTORY: 1. She was known with history of morbid obesity. 2. Essential hypertension. 3. Hypercholesterolemia. 4. Osteoarthritis. 5. Allergic rhinitis. 6. Gastroesophageal reflux. 7. Chronic hypoxic respiratory failure, use of oxygen 4 liter nasal cannula. 8. Obstructive sleep apnea disorder for this patient, treated with CPAP of 9 cm of water since 2012. 9. Uncomplicated severe persistent bronchial asthma. PAST SURGICAL HISTORY: 1. Partial hysterectomy. 2. T and A. [place], [place] REPORT OF CONSULTATION NAME: VICTORINA MARES [facility] #: [id number] UNIT #: [id number] ROOM: 426 DOCTOR: JERO SORIANO MD BIRTHDATE: [birth year] 3. Hemorrhoidectomy. 4. Total knee replacement bilaterally. 5. Left foot surgery for management of the osteomyelitis. 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 Denies any history of alcohol use or any illicit drug use. She has 2 children, lives at home. FAMILY HISTORY: The patient's father at age of 81 due to complication of diabetes mellitus and hypertension. Mother at the age of 8080 years old due to complication related to dementia. MEDICATIONS: Current administered medication. The patient was noted as use of multivitamin, MiraLax, Cymbalta, estrogen, vitamin D, Zyrtec, Wellbutrin-XL, aspirin, Lovenox for DVT prophylaxis, Neurontin high dose, Mucinex, IV Solu-Medrol 60 mg q.8 hours, trazodone, Neurontin, Dulera, DuoNeb q.4h., Zithromax and IV Rocephin. She was also getting the p.r.n. other medications. DRUG ALLERGIES: Noted as allergies: 1. PENICILLINS. 2. VALIUM. 3. BACITRACIN. 4. QUININE. 5. DEMEROL. 6. DILAUDID. PHYSICAL EXAMINATION: GENERAL: A 57-year-old female who has been currently noted awake and alert at this time without any acute distress at the time of the assessment. Her height was recorded by the nursing staff at the time of current admission with height of 5 feet 7 inches, weight of 370 pounds, BMI 58.0. VITAL SIGNS: The temperature recorded normal since admission, respiratory rate 18-24, heart rate 64-77, blood pressure 118/78-105/50. Pulse oxygen saturation, patient at rest on 3 liter nasal cannula noted 94% saturation. HEENT: Severe obesity. Decreased posterior pharyngeal space. Head was atraumatic. Eyes nonicterus. CARDIOVASCULAR: S1, S2 audible. LUNGS: Noted diffuse reduction in breath sounds bilaterally with moderate expiratory wheezing. ABDOMEN: Noted soft severe obesity. Bowel sounds present without tenderness. EXTREMITIES: Shows chronic obesity without any edema. MUSCULOSKELETAL: No acute deformities. VISIBLE SKIN: No lesions or rashes. CENTRAL NERVOUS SYSTEM: Cranial nerves 2-12 intact. LABORATORY DATA: CBC yesterday on admission, WBC count 11.1, otherwise normal. The lactic acid yesterday normal on admission. PT/PTT yesterday on admission was normal. CMP on yesterday admission, BUN 21, creatinine 1.10. Remaining CMP normal. CBC this morning remains normal. BMP, glucose 161, normal BUN and creatinine. Troponin 3 sets for the patient last [address] of [place], [place] REPORT OF CONSULTATION NAME: VICTORINA MARES UNIT #: [id number] ROOM: 426 DOCTOR: ALEJANDRO SORIANO MDM BIRTHDATE: [birth year] the head reported by the radiologist without any acute intracranial abnormalities. CT scan of chest was also done for the patient yesterday without contrast was reviewed, this does not show any acute pulmonary infiltration or other acute abnormalities of concern. Chest x-ray on 07/26 was also reviewed and noted without any acute abnormalities. IMPRESSION: 1. The patient who has been admitted to the hospital, failed outpatient treatment for acute exacerbation of bronchial asthma and acute bronchitis. 2. History of chronic hypoxic respiratory failure, stable. 3. History of obstructive sleep apnea disorder treated with CPAP, remains stable. 4. Generalized weakness and fatigue for this patient with the symptoms appear due to current acute illness and infection. 5. Chronic morbid obesity for this patient and multiple other medical problems noted in the past history. PLAN OF TREATMENT: Agree with current use of corticosteroid dose, use of the bronchodilators and oxygen supplementation, use of CPAP from home will be continued as tolerated. The patient would not require any use of the BiPAP at this time, arterial blood gas assessment. She seemed to be responding to treatment. The patient with partial reduction of symptom noted. Since hospitalization yesterday noted much more awake and alert as per patient. Collect the sputum for Gram stain and culture as well. The antibiotic for the patient remains unchanged as well. There was no evidence of pneumonia. Continue Mucinex and flutter valve usage. The medical management of hyperglycemia secondary to corticosteroids will be continued as well. Additional treatment changes will be made based on progression of the illness. Thanks for allowing me to participate in the care of this patient. JERO BOB MD CM:CONSTR:REPORT OF CONSULTATION 1310 07/28/17 0100 interface
--- NOTE | ~2017-07-26 | PR ---
[place], [place] PROGRESS NOTE NAME: VICTORINA MARES UNIT #: [id number] ROOM: 426 DOCTOR: DIEUDONNE ENRIQUEZ DO BIRTHDATE: [birth year] DOS: There is note is to be attached to the one dictated by Dr. Bob separately. SUBJECTIVE: The patient was seen today. She was awake and responsive. She stated she is feeling significantly better in terms of respiratory status, much faster than she thought she would. She denies any chest pain, nausea, vomiting, diarrhea. OBJECTIVE: VITAL SIGNS: Temperature 98.1, pulse is 78, respiratory rate 20, blood pressure 144/58, bedside pulse oximetry is 98% on 3 liters nasal cannula. HEENT: No change. RESPIRATORY: Some bilateral wheezes and diminished breath sounds. CARDIOVASCULAR: S1, S2 heard. Normal rate and rhythm. ABDOMEN: Soft, nontender, obese. LABORATORY DATA: WBC is 11.0, hemoglobin and hematocrit 12.1 and 37.8, platelets 191. Sodium 139, potassium 4.3, chloride 105, carbon dioxide 30, creatinine 0.85. IMPRESSION AND PLAN: 1. Resolution or continued improvement of the acute exacerbation of bronchial asthma. 2. Obstructive sleep apnea. 3. Chronic hypoxic respiratory failure. PLAN: Continue with supplement, with the breathing treatments and the patient can be discharged on a prednisone taper today if okay by the primary team. Otherwise, please see Dr. Bob's note for more details. DIEUDONNE ENRIQUEZ DO [place], [place] PROGRESS NOTE NAME: VICTORINA MARES UNIT #: [id number] ROOM: 426 DOCTOR: DIEUDONNE ENRIQUEZ DO BIRTHDATE: [birth year] JERO BOB MD CM:PNTRANS 1121 1211 DIEUDONNE ENRIQUEZ DO 07/29/17 1212 interface
--- NOTE | ~2017-07-26 | PR ---
[place], [place] PROGRESS NOTE [id number] #: [id number] ROOM: 426 DOCTOR: JERO SORIANO MD BIRTHDATE: [birth year] DOS: 07/28/2017 SUBJECTIVE: She remains in the hospital. The patient noted with reduction in symptoms of shortness of breath, cough and improvement of the generalized weakness and fatigue. Denies symptoms of chest pain. Shortness of breath has been decreased. The coughing frequency and intensity was also resolving. There were no reported symptoms of chest pain at this time. OBJECTIVE: VITAL SIGNS: Normal temperature, respiratory rate 20, heart rate 69, blood pressure 144/66. Pulse oxygen saturation recorded as 96% on 3 liters cannula. HEENT: Showed no acute change. NECK: Supple. CARDIOVASCULAR: S1, S2 audible. LUNGS: Moderate decreased breath sounds, mild expiratory wheezing improvement noted with previous examination. ABDOMEN: Soft and obese. EXTREMITIES: Noted without any edema. LABORATORY DATA: Labs today. Blood culture which were done on the of this month showed no bacterial growth. No other labs were done at the present time. IMPRESSION: 1. The patient with resolving acute exacerbation of bronchial asthma noted uncomplicated, severe, persistent with acute bacterial bronchitis. 2. Obstructive sleep apnea disorder. 3. Chronic hypoxic respiratory failure. PLAN OF TREATMENT: Continuation of the oxygen supplementation and bronchodilators. Decrease the oxygen supplementation for this. Decrease rather the Solu-Medrol dose to 40 mg b.i.d. from 60 mg q.8 h. Assess the response to the changes in the treatment. Other supportive therapy, plan of management and care. Usual treatment. All other plan of therapy and management. Additional treatment changes will be done based on progression of illness. [place], [place] PROGRESS NOTE NAME: VICTORINA MARES UNIT #: [id number] ROOM: 426 DOCTOR: JERO SORIANO MD BIRTHDATE: [birth year] JERO BOB MD CM:PNTRANS 1119 0030 JERO GALLOWAY MD 07/29/17 0031 interface
--- NOTE | ~2017-07-26 | PR ---
[place], [place] PROGRESS NOTE NAME: VICTORINA MARES [facility] #: [id number] UNIT #: [id number] ROOM: 426 DOCTOR: LISBETH GALLOWAY MD,JERO BIRTHDATE: [birth year] DOS: 07/29/2017 SUBJECTIVELY: The patient was independently seen and examined in [id number] encounter. The labs were reviewed. Physical examination performed. History confirmed. All the available labs were reviewed. Decision to medical management changes or others were personally done for the patient at today's visit. The note done by the quality engineer medical device was approved. She has been showing progressive reduction and improvement in the respiratory symptom coughing, shortness breath and wheezing in the last 24 hours. She was continuing the steroids, bronchodilators and antibiotics. OBJECTIVE: VITAL SIGNS: Reviewed and they were noted normal. Pulse ox saturation remained normal range on 3 liters as usual home oxygen at 98%. Auscultation of chest, occasional wheezing was noted. ABDOMEN: Soft, nontender. EXTREMITIES: Noted without any edema. IMPRESSION: 1. The patient was currently noted at this time with responding to the treatment for acute exacerbation of bronchial asthma. Sputum culture preliminary showing normal catie. She could be discharged home on oral antibiotics as Levaquin as well as a tapering dose of prednisone. PLAN OF TREATMENT: Outpatient followup to be continued previously without any changes as well. No additional treatment changes will be necessary. JERO BOB MD CM:PNTRANS 1045 1243 JERO GALLOWAY MD 08/05/17 1902 interface
[2017-07-26 12:12] VITALS: BP 118/78
[2017-07-26 12:43] VITALS: BP 119/78
[2017-07-26 12:43] LABS: BASO # 0.1 10*3/uL (0.0-0.1); BASO % 0.5 % (0.0-1.0); EOS # 0.3 10*3/uL (0.0-0.4); EOS % 2.4 % (1.0-4.0); HEMOGLOBIN 13.4 g/dl (12.0-16.0); LYMPH # 4.3 10*3/uL (1.3-4.4); LYMPH % 38.8 % (27.0-41.0); MEAN CELL VOLUME 93.8 fl (81.0-99.0); MEAN CORPUSCULAR HGB 30.7 pg (27.0-31.0); MEAN CORPUSCULAR HGB CONC 32.7 g/dl (33.0-37.0); MEAN PLATELET VOLUME 9.2 fl (9.6-12.3); MONO % 9.3 % (3.0-9.0); NEUT # 5.4 10*3/uL (2.3-7.9); NEUT % 48.5 % (47.0-73.0); PLATELET COUNT AUTOMATED 227 10*3/uL (130-400); RED BLOOD COUNT 4.37 10*6/uL (4.10-5.10); RED CELL DISTRI WIDTH 12.6 % (0-14.5)
--- NOTE | 2017-07-26 12:45 | NUR ---
PATIENT IS ALERT AND ORIENTED X3, SITTING UP IN THE BED SIGNIFCANT OTHER PRESENT IN THE ROOM AT THIS TIME, RESPIRAITONS ARE EASY AND NONLABORED, PATIENT IS RESTING IN BED, CALL LIGHT IN REACH OF THE PATIENT, CONTINUING TO MONITOR THE PATIENT. MACRN
[2017-07-26 12:51] LABS: ACT PARTIAL THROMBO TIME 20.5 SECONDS (20.8-31.5); INTERNATIONAL NORM RATIO 0.9 (2.0-3.5)
[2017-07-26 12:58] LABS: ALBUMIN 3.4 gm/dl (3.1-4.5); ALKALINE PHOSPHATASE 95 U/L (45-117); BUN 21 mg/dl (7-24); CHLORIDE 100 mmol/L (98-107); LIPASE 108 U/L (73-393); POTASSIUM 3.9 mmol/L (3.5-5.1); SGOT/AST 18 IU/L (3-35); SGPT/ALT 30 U/L (12-78); SODIUM 138 mmol/L (136-145); TOTAL PROTEIN 7.3 gm/dL (6.4-8.2)
[2017-07-26 13:01] LABS: TROPONIN I < 0.015 ng/ml (<0.045)
[2017-07-26 13:25] VITALS: BP 123/94
--- NOTE | 2017-07-26 14:10 | NUR ---
PATIENT TAKEN TO ROOM 426 PLACED IN THE BED AND ON THE CHURN DRILL OPERATOR, PA AND RN AWARE OF THE PATIENT, AND CARE TRANSFERRED TO MIK SHAIKH RN. NYA WATTS
[2017-07-26 14:15] VITALS: BP 129/58
--- NOTE | 2017-07-26 14:30 | NUR ---
Time: 1429 A 57 year old FEMALE admitted to under services of ELZA SCHRADER DO. Pt. arrived via bed from ER. Chief complaint: DIZZINESS,BLURRED VISION,LIGHTHEADEDNESS. MIK SHAIKH
[2017-07-26] MEDS ORDERED: XANAX0.25 MG PO (14:45)
[2017-07-26] MEDS ORDERED: WELLBUTRIN XL150 MG PO (14:46)
--- NOTE | 2017-07-26 17:22 | NUR ---
DR. BOB NOTIFIED OF CONSULT.
--- NOTE | 2017-07-26 17:42 | NUR ---
PT MEDICATED WITH PRN ROBITUSSIN AND NORCO FOR C/O COUGH AND GENERALIZED PAIN. MEDS WERE OVER ROAD IN [facility] DUE TO IT BEING DOWN AT THIS TIME AND CHARTED ON PAPER MAR ON CHART. HOME MEDS VERIFIED WITH PATIENT BUT UNAVAILABLE FROM PHARMACY AT THIS TIME.
[2017-07-26 19:00] LABS: BILIRUBIN NEGATIVE (NEGATIVE); BLOOD NEGATIVE (NEGATIVE); CLARITY SL CLOUDY (CLEAR); COLOR YELLOW (YELLOW); GLUCOSE NEGATIVE (NEGATIVE); KETONE NEGATIVE (NEGATIVE); LEUKO ESTERASE NEGATIVE (NEGATIVE); NITRITE NEGATIVE (NEGATIVE); PH 5.5 (5.0-9.0); UROBILINOGEN 0.2 E.U./dl (0.2-1.0)
[2017-07-26 19:07] LABS: BACTERIA 1+; RBC 0-2 rbc/hpf (0-2); WBC 0-2 wbc/hpf (0-5)
[2017-07-26 20:00] VITALS: BP 133/67
--- NOTE | 2017-07-26 22:37 | NUR ---
FLUTTER STARTED ON PT. PERFORMS WELL, ENCOURAGED TO DO EVERY HOUR X10 BREATHS
[2017-07-27] VITALS: BP 135/74
--- NOTE | 2017-07-27 02:47 | NUR ---
PATIENT REQUESTED NORCO FOR GEN. BODY PAIN 04/16. NORCO GIVEN PER PRN ORDER.
--- NOTE | 2017-07-27 03:45 | NUR ---
PATIENT SLEEPING. PAIN MEDICATION APPEARS TO BE EFFECTIVE
[2017-07-27 07:27] LABS: BASO % 0.3 % (0.0-1.0); HEMATOCRIT 39.3 % (37.0-47.0); HEMOGLOBIN 12.5 g/dl (12.0-16.0); LYMPH # 1.2 10*3/uL (1.3-4.4); LYMPH % 15.5 % (27.0-41.0); MEAN CELL VOLUME 94.9 fl (81.0-99.0); MEAN CORPUSCULAR HGB 30.2 pg (27.0-31.0); MEAN CORPUSCULAR HGB CONC 31.8 g/dl (33.0-37.0); MEAN PLATELET VOLUME 9.4 fl (9.6-12.3); MONO # 0.1 10*3/uL (0.1-1.0); MONO % 1.8 % (3.0-9.0); NEUT # 6.3 10*3/uL (2.3-7.9); PLATELET COUNT AUTOMATED 212 10*3/uL (130-400); RED BLOOD COUNT 4.14 10*6/uL (4.10-5.10); RED CELL DISTRI WIDTH 12.5 % (0-14.5); WHITE BLOOD COUNT 7.7 10*3/uL (4.8-10.8)
[2017-07-27 07:47] LABS: BUN 19 mg/dl (7-24); CHLORIDE 102 mmol/L (98-107); PHOSPHOROUS 3.3 mg/dL (2.5-4.9); POTASSIUM 4.8 mmol/L (3.5-5.1); SODIUM 138 mmol/L (136-145)
[2017-07-27 07:52] LABS: THYROID STIM HORMONE (HS) 0.438 uIU/ml (0.358-4.75)
[2017-07-27 08:00] VITALS: BP 105/50
--- NOTE | 2017-07-27 08:30 | NUR ---
Electric Cutter Operator in to talk to patient. Patient states lives at HOME with HER . There are 1 steps in the home. Physician: DR MACKEY [facility]acy: [facility] Home health services: NONE Patient's level of ADLs: INDEPENDENT Patient has working utilities: YES DME: WALKER/CANE/NEB/CPAP/ O2 BMS Follow-up physician's appointment after d/c: WILL BE MADE PRIOR TO DC Does patient want to access PORTAL?: Discharge plan HOME. KEITH HARP
--- NOTE | 2017-07-27 10:10 | NUR ---
PATIENT VERY ANXIOUS AND REQUESTED XANAX. PATIENT GIVEN XANAX, WILL REASSESS PATIENT'S ANXIETY IN 30 MIN.
--- NOTE | 2017-07-27 10:40 | NUR ---
PATIENT STATES SHE DOES FEEL BETTER AFTER RECIEVING XANAX.
[2017-07-27 12:00] VITALS: BP 124/57
[2017-07-27 16:00] VITALS: BP 135/74
[2017-07-27 20:00] VITALS: BP 152/78
--- NOTE | 2017-07-27 20:00 | NUR ---
ASSUMED CARE OF PATIENT. ASSESSMENT COMPLETE. RESTING IN BED. O2 INTACT. CALL LIGHT IN REACH. WILL CONTINUE TO MONITOR.
[2017-07-28] VITALS: BP 114/47
--- NOTE | 2017-07-28 | NUR ---
PT C/O NAUSEA. NO ORDERS, CALLED AND SPOKE TO DR SUTTON. ORDER RECEIVED.
--- NOTE | 2017-07-28 00:40 | NUR ---
PATIENT MEDICATED WITH ONE TIME ZOFRAN FOR C/O NAUSEA
--- NOTE | 2017-07-28 01:30 | NUR ---
PT STATES EARLEIR ZOFRAN EFFECTIVE
--- NOTE | 2017-07-28 02:00 | NUR ---
SLEEPING. RESP EASY. CPAP INTACT. IVF INFUSING PER ORDER WITHOUT DIFFICULTY. CALL LIGHT IN REACH. WILL CONTINUE TO MONITOR.
--- NOTE | 2017-07-28 06:11 | NUR ---
MEDICATED WITH PRN NORCO FOR C/O BACK PAIN. RATES 03/16.
[2017-07-28 08:00] VITALS: BP 144/66
--- NOTE | 2017-07-28 11:09 | NUR ---
PATIENT C/O ANXIETY AND A HEADACHE. ATIVAN GIVEN PER ORDER. RATES HEADACHE PAIN 5/10, TYLENOL GIVEN PER ORDER.
--- NOTE | 2017-07-28 11:59 | NUR ---
PHYSICAL THERAPY PAtient evaluated on 4, full evaluation to follow. Continue with PT as per planof care with fall, 02 and significant dyspnia at rest precautions. Qualifies for SNF but insistant on kelechi to home. will require 24/7 family assist and complete home health services. PAtient is high complexity via chart review, tests and evaluation: 60494. Thank you for this referral. Eileen Lofton,PT
[2017-07-28 12:00] VITALS: BP 117/50
--- NOTE | 2017-07-28 12:00 | NUR ---
PATIENT STATES PRNS ARE EFFECTIVE.
--- NOTE | 2017-07-28 15:34 | NUR ---
PATIENT COMPLAINING OF PAIN IN HER BACK, MEDICATED WITH NORCO AT THIS TIME.
[2017-07-28 16:00] VITALS: BP 148/73
--- NOTE | 2017-07-28 17:00 | NUR ---
PRN PO NORCO WAS EFFECTIVE, PER PATIENT.
--- NOTE | 2017-07-28 19:05 | NUR ---
PATIENT C/O SEVERE FRONTAL VICE-PRACTICE LEAD LIKE HEADACHE RATES 9/10 ON PAIN SCALE. PER PATIENT, SHE USUALLY GETS HEADACHES WITH LOW BLOOD SUGAR, BUT THIS HEADACHE MORE SEVERE THAN USUAL. MEDICATED WITH 975MG PO TYLENOL X 1 ORDERED, CHECKED BEDSIDE GLUCOSE FOR 214 RESULT.
[2017-07-28 20:00] VITALS: BP 140/76
--- NOTE | 2017-07-28 20:00 | NUR ---
ASSUMED CARE OF PATIENT. ASSESSMENT COMPLETE. RESTING IN BED. DENIES FURTHER NEEDS AT THIS TIME. CALL LIGHT IN REACH. WILL CONTINUE TO MONITOR.
--- NOTE | 2017-07-28 22:43 | NUR ---
MEDICATED WITH PRN ZOFRAN FOR C/O NAUSEA.
--- NOTE | 2017-07-28 23:40 | NUR ---
PER PATIENT, EARLIER ZOFRAN EFFECTIVE
[2017-07-29] VITALS: BP 114/54
--- NOTE | 2017-07-29 02:00 | NUR ---
SLEEPING. RESP EASY. CPAP INTACT. IVF INFUSING PER ORDER WITHOUT DIFFICULTY. CALL LIGHT IN REACH. WILL CONTINUE TO MONITOR.
--- NOTE | 2017-07-29 06:10 | NUR ---
MEDICATED WITH PRN NORCO FOR C/O BACK PAIN. RATES 04/16.
[2017-07-29 07:54] LABS: BASO % 0.1 % (0.0-1.0); HEMATOCRIT 37.8 % (37.0-47.0); HEMOGLOBIN 12.1 g/dl (12.0-16.0); LYMPH # 2.1 10*3/uL (1.3-4.4); LYMPH % 18.7 % (27.0-41.0); MEAN CELL VOLUME 96.2 fl (81.0-99.0); MEAN CORPUSCULAR HGB 30.8 pg (27.0-31.0); MEAN PLATELET VOLUME 9.5 fl (9.6-12.3); MONO # 0.6 10*3/uL (0.1-1.0); MONO % 5.1 % (3.0-9.0); NEUT # 8.3 10*3/uL (2.3-7.9); NEUT % 75.6 % (47.0-73.0); PLATELET COUNT AUTOMATED 191 10*3/uL (130-400); RED BLOOD COUNT 3.93 10*6/uL (4.10-5.10); RED CELL DISTRI WIDTH 12.8 % (0-14.5)
[2017-07-29 08:00] VITALS: BP 144/58; BP 150/88
[2017-07-29 08:08] LABS: BUN 19 mg/dl (7-24); CHLORIDE 105 mmol/L (98-107); CREATININE 0.85 mg/dL (0.55-1.02); POTASSIUM 4.3 mmol/L (3.5-5.1); SODIUM 139 mmol/L (136-145)
--- NOTE | 2017-07-29 09:42 | NUR ---
PHYSICAL THERAPY Patient presented to therapy with report of getting to go home today. Patient says she is doing much better but still has SOB with activity. Patient performed sit to stand transfer with Supervision. Patient is on 3 liters of spO2. Patient performed gait with no assistive device for 70' x [address] railing. Patient was left in seated position at EOB with call light within reach and connected to the 3 liters fo O2. Patient was 1:1 with this HOT AIR FURNACE INSTALLER REPAIRER for 15 minutes total. ANNIE MEEKS HOT AIR FURNACE INSTALLER REPAIRER
[2017-07-29 12:00] VITALS: BP 165/67
[2017-07-29] MEDS ORDERED: SUPRAX400 M2 PO (12:14)
[2017-07-29] MEDS ORDERED: AVPAK AZITHROM250 MG PO (12:14)
[2017-07-29] MEDS ORDERED: PREDNISONE50 MG PO (12:14)
--- NOTE | 2017-07-29 13:55 | NUR ---
PHYSICAL THERAPY Patient was seen by Dr. Lewis and nursing and was sent down to radiology for an x-ray because of an aggravation of her ASTMA today. Patient was waiting for the results of her x-rays and said her asthma became aggravated by the walking she did in therapy this morning. Patient wanted to wait to see the results of her chest x-rays before doing therapy again. ANNIE MEEKS WORKERS COMPENSATION CLAIMS EXAMINER
[2017-07-29 15:10] LABS: LEGIONELLA URINARY ANTIGEN Negative (Negative)
--- NOTE | 2017-07-29 15:50 | NUR ---
Discharge instructions reviewed with patient/family. Patient receptive and verbalizes understanding. Follow-up care arranged. Written instructions given to patient/family. PATIENT REMAINS SHORT OF BREATH, NOTIFIED PRIOR TO CXR AND NOTIFIED OF RESULTS. PATIENT INSTRUCTED THAT PER , SHE SHOULD STAY IF SHE IS SHORT OF BREATH. PATIENT STATES SHE FEELS BETTER AFTER AEROSOL TX AND WANTS TO GO HOME. HEPLOCK REMOVED. PATIENT TAKEN OFF FLOOR BY W/C WITH PRESENT. CATIE PAGAN
== END 2017-07-29 16:18 | disposition home or self-care (01) | DRG 871 ==
LOC: ED 11:45 → EDHOLD 13:14 → 4E 13:14
PROVIDERS: Emergency Medicine; Family Medicine; Internal Medicine; ADMIT Internal Medicine
PROC: 5A09357 Assistance with Respiratory Ventilation, Less than 24 Consecutive Hours, Continuous Positive Airway Pressure (ICD-10-PCS; principal; 2017-07-28)
DX: A41.9 Sepsis, unspecified organism (principal); J18.9 Pneumonia, unspecified organism; J96.11 Chronic respiratory failure with hypoxia; E44.0 Moderate protein-calorie malnutrition; E11.22 Type 2 diabetes mellitus with diabetic chronic kidney disease; E66.01 Morbid (severe) obesity due to excess calories; J45.901 Unspecified asthma with (acute) exacerbation; I50.32 Chronic diastolic (congestive) heart failure; Z68.43 Body mass index [BMI] 50.0-59.9, adult; I87.8 Other specified disorders of veins; N18.3 Chronic kidney disease, stage 3 (moderate); G47.33 Obstructive sleep apnea (adult) (pediatric); K76.0 Fatty (change of) liver, not elsewhere classified; F41.9 Anxiety disorder, unspecified; F32.9 Major depressive disorder, single episode, unspecified; E78.00 Pure hypercholesterolemia, unspecified; M19.90 Unspecified osteoarthritis, unspecified site; T38.0X5A Adverse effect of glucocorticoids and synthetic analogues, initial encounter; J20.8 Acute bronchitis due to other specified organisms; Z96.653 Presence of artificial knee joint, bilateral; K21.9 Gastro-esophageal reflux disease without esophagitis; Z88.1 Allergy status to other antibiotic agents; Z91.041 Radiographic dye allergy status; Z88.0 Allergy status to penicillin; Z88.8 Allergy status to other drugs, medicaments and biological substances; Z91.09 Other allergy status, other than to drugs and biological substances; Z79.01 Long term (current) use of anticoagulants; Z99.81 Dependence on supplemental oxygen; Z79.82 Long term (current) use of aspirin; Z79.899 Other long term (current) drug therapy; Z90.710 Acquired absence of both cervix and uterus; Z98.891 History of uterine scar from previous surgery; Z82.49 Family history of ischemic heart disease and other diseases of the circulatory system; Z83.3 Family history of diabetes mellitus; Z82.3 Family history of stroke; Y92.89 Other specified places as the place of occurrence of the external cause

== ENCOUNTER 2017-08-20 12:09 | Emergency (ER) | payer MEDICARE ==
[~2017-08-20] VITALS: Ht 167.6 cm; Wt 165.6 kg
[~2017-08-20 12:09] MED LIST changes: +AVPAK AZITHROM250 MG PO; +PREDNISONE50 MG PO; +SUPRAX400 M2 PO; +WELLBUTRIN XL150 MG PO
[2017-08-20 12:38] VITALS: BP 126/70
[2017-08-20 13:27] LABS: BASO % 0.5 % (0.0-1.0); EOS # 0.2 10*3/uL (0.0-0.4); EOS % 2.8 % (1.0-4.0); HEMATOCRIT 37.9 % (37.0-47.0); HEMOGLOBIN 12.5 g/dl (12.0-16.0); LYMPH # 2.4 10*3/uL (1.3-4.4); LYMPH % 40.9 % (27.0-41.0); MEAN CELL VOLUME 93.8 fl (81.0-99.0); MEAN CORPUSCULAR HGB 30.9 pg (27.0-31.0); MEAN PLATELET VOLUME 9.2 fl (9.6-12.3); MONO # 0.6 10*3/uL (0.1-1.0); MONO % 10.9 % (3.0-9.0); NEUT # 2.6 10*3/uL (2.3-7.9); NEUT % 44.6 % (47.0-73.0); PLATELET COUNT AUTOMATED 204 10*3/uL (130-400); RED BLOOD COUNT 4.04 10*6/uL (4.10-5.10); RED CELL DISTRI WIDTH 12.9 % (0-14.5); WHITE BLOOD COUNT 5.8 10*3/uL (4.8-10.8)
[2017-08-20 13:36] LABS: INTERNATIONAL NORM RATIO 0.9 (2.0-3.5)
[2017-08-20 13:42] LABS: ALBUMIN 3.2 gm/dl (3.1-4.5); ALKALINE PHOSPHATASE 82 U/L (45-117); BUN 12 mg/dl (7-24); CHLORIDE 101 mmol/L (98-107); POTASSIUM 3.7 mmol/L (3.5-5.1); SGOT/AST 29 IU/L (3-35); SGPT/ALT 47 U/L (12-78); SODIUM 140 mmol/L (136-145); TOTAL PROTEIN 6.7 gm/dL (6.4-8.2)
[2017-08-20] MEDS ORDERED: CEPHALEXIN500 M1 PO (14:20)
[2017-08-20] MEDS ORDERED: CLINDAMYCIN HC300 MG PO (14:20)
== END 2017-08-20 14:50 | disposition home or self-care (01) ==
LOC: ED 12:09
PROVIDERS: Emergency Medicine
DX: L03.116 Cellulitis of left lower limb (principal); I87.8 Other specified disorders of veins; N18.3 Chronic kidney disease, stage 3 (moderate); I50.9 Heart failure, unspecified; J45.909 Unspecified asthma, uncomplicated; J44.9 Chronic obstructive pulmonary disease, unspecified; Z88.0 Allergy status to penicillin; Z88.1 Allergy status to other antibiotic agents; Z88.8 Allergy status to other drugs, medicaments and biological substances; Z88.6 Allergy status to analgesic agent; Z79.899 Other long term (current) drug therapy

== ENCOUNTER 2017-08-24 13:54 | Inpatient (IN) | payer MEDICARE ==
[~2017-08-24] VITALS: Ht 170.1 cm; Wt 173.8 kg
--- NOTE | ~2017-08-24 | PR ---
[place], [place] PROGRESS NOTE NAME: VICTORINA MARES [facility] #: [id number] UNIT #: [id number] ROOM: 526 DOCTOR: GAGAN SMITH,DECEMBER BIRTHDATE: [birth year] DOS: SUBJECTIVE: The patient is a 57-year-old morbidly obese female who is being followed for bilateral lower extremity cellulitis. She is status post PICC line placement. She is currently receiving IV clindamycin and cefepime. Her admitting blood cultures were negative. She had no other cultures done. She is also receiving albumin and Bumex for diuresis. She is tolerating the antibiotics with no fevers, chills, nausea, vomiting or diarrhea. No rash or itch. No cough or shortness of breath. She does still have significant pain and swelling of bilateral lower extremities, though she states they are improving. LABORATORY DATA: Shows BUN 8, creatinine 0.94. CURRENT MEDICATIONS: Include cefepime, clindamycin, Bumex, albumin, Lamisil, Cleocin, vitamin D, Neurontin, MiraLax, multivitamin, Pepcid, Lovenox, Cymbalta, Zyrtec, Wellbutrin, aspirin, Desyrel, Xanax, MS Contin, K-Dur, Ventolin, Dulera, DuoNeb, [place]. PHYSICAL EXAMINATION: VITAL SIGNS: Temperature 98.4, pulse 76, respirations 20, BP 109/55. GENERAL: A 57-year-old morbidly obese female, in no acute distress. HEAD, EYE, EARS, NOSE AND THROAT: Normocephalic/ No thrush. LUNGS: Clear to auscultation bilaterally. Respirations even and unlabored. HEART: Regular rhythm. No murmur appreciated. ABDOMEN: Soft, obese, nondistended. EXTREMITIES: Bilateral lower extremities with lymphedema with increased warmth and erythema extending just past her knees. They do improve somewhat with elevation. She has PICC in place. Dressing dry and intact. No signs of phlebitis. ASSESSMENT: Cellulitis of bilateral lower extremities. This is her second episode this year. She has significant lymphedema. PLAN: I had a long discussion with the patient regarding getting her edema under control, which will be armenta in preventing recurrence of her cellulitis and this needs to involve a low sodium diet, which I discussed with her as well as elevating her legs whenever she is at rest and she needs compression. She has worn compression in the past and we will start her out with some Tubigrip. I would also recommend Georgette and lymphedema therapy, which she can discuss with her attending as an outpatient. She is going to be discharged on IV Ancef. I will change the cefepime to Ancef. She is to be discharged after her doses tonight and start with home health tomorrow. Discharge orders already entered by Dr. Baumann. Case discussed with Dr. Angela Lopez. I agree with above plans as described. We will follow the patient up clinically and adjust accordingly. [place], [place] PROGRESS NOTE NAME: VICTORINA MARES UNIT #: [id number] ROOM: 526 DOCTOR: GAGAN SMITHDECEMBER BIRTHDATE: [birth year] FRANCESCO FARAH CNP ANGELA LOPEZ MD CM:IVAN [id number] FRANCESCO FARAH CNP 08/29/17 1003 interface
--- NOTE | ~2017-08-24 | CON ---
[place], [place] REPORT OF CONSULTATION NAME: VICTORINA MARES [facility] #: [id number] UNIT #: [id number] ROOM: 526 DOCTOR: FRANCISCO EDGEFRANCIA BIRTHDATE: [birth year] DOS: 08/28/2017 SUBJECTIVE: This patient is seen as consult for evaluation of edema in both lower extremities. The patient had a venous ultrasound, which was negative for DVT. She is diabetic and states she has had problems with chronic swelling in both lower extremities. She was admitted with cellulitis in both legs. She states she is feeling better, has less pain, less discomfort. She does have a PICC line placed for antibiotics when she is discharged. According to the patient, she will be discharged tomorrow. PAST MEDICAL HISTORY: Positive for anxiety, asthma, CHF, morbid obesity, chronic renal disease stage 3, depression, gastroesophageal reflux disease, obstructive sleep apnea, RSDS in left lower extremity, vitamin D deficiency. She uses oxygen. ALLERGIES: PENICILLINS, IODINE, DIAZEPAM, AMPICILLIN. CURRENT MEDICATIONS: Include Bumex, albumin, oral Lamisil, clindamycin, cefepime, vitamin D, Neurontin, Pepcid, Lovenox, Cymbalta, Zyrtec, Wellbutrin, Desyrel, Xanax, morphine, potassium, albuterol, [place], Zofran. OBJECTIVE: Upon lower extremity physical examination, DP pedal pulses are barely palpable secondary to swelling. PT pedal pulses difficult to palpate. She does have 1-2+ pitting edema noted to both lower extremities with negative Homans sign. Volume overload is evident. Mild erythema and increased temperature is seen in the legs with some tenderness noted to palpation at the feet and ankles. Sensation appears decreased bilaterally. Muscle strength is mildly decreased bilaterally. No pain on palpation or range of motion of pedal joints. There are no open areas noted bilaterally. No blisters or macerations on the lower legs. No signs of venous leg ulcers. No open areas on either foot. ASSESSMENT: Chronic venous insufficiency with edema bilaterally, cellulitis of both legs, which is improving. PLAN: Consult was performed. I discussed treatment options with the patient. I discussed about compression treatment with Unna boots. The patient states she has had those before, she does not tolerate those. She does not want the Unna boots applied. I encouraged her to elevate her legs, wear compression stockings whenever possible. She has no open wounds at this time and her cellulitis is improving, so we can follow her up as an outpatient for care of the chronic peripheral edema, but right now she is not agreeing to Unna boots and does not want any compression at this time. Thank you for the opportunity to take part in care of this patient. [place], [place] REPORT OF CONSULTATION NAME: VICTORINA MARES [facility] [id number] UNIT #: [id number] ROOM: 526 DOCTOR: FRANCIA SINGH DPM BIRTHDATE: [birth year] FRANCIA SINGH DPM CM:CONSTR:REPORT OF CONSULTATION 1143 08/28/17 1411 interface
[2017-08-24 14:01] VITALS: BP 100/57
[2017-08-24 14:54] LABS: BASO % 0.6 % (0.0-1.0); EOS # 0.2 10*3/uL (0.0-0.4); EOS % 2.3 % (1.0-4.0); HEMOGLOBIN 11.7 g/dl (12.0-16.0); LYMPH # 1.7 10*3/uL (1.3-4.4); LYMPH % 26.4 % (27.0-41.0); MEAN CORPUSCULAR HGB 30.9 pg (27.0-31.0); MEAN CORPUSCULAR HGB CONC 32.5 g/dl (33.0-37.0); MEAN PLATELET VOLUME 9.3 fl (9.6-12.3); MONO # 0.6 10*3/uL (0.1-1.0); MONO % 9.4 % (3.0-9.0); NEUT # 3.9 10*3/uL (2.3-7.9); NEUT % 61.1 % (47.0-73.0); PLATELET COUNT AUTOMATED 195 10*3/uL (130-400); RED BLOOD COUNT 3.79 10*6/uL (4.10-5.10); RED CELL DISTRI WIDTH 13.1 % (0-14.5); WHITE BLOOD COUNT 6.4 10*3/uL (4.8-10.8)
[2017-08-24 15:04] LABS: ACT PARTIAL THROMBO TIME 25.7 SECONDS (20.8-31.5); INTERNATIONAL NORM RATIO 0.9 (2.0-3.5)
[2017-08-24 15:09] LABS: ALBUMIN 3.2 gm/dl (3.1-4.5); ALKALINE PHOSPHATASE 78 U/L (45-117); BUN 11 mg/dl (7-24); CHLORIDE 103 mmol/L (98-107); POTASSIUM 4.2 mmol/L (3.5-5.1); SGOT/AST 28 IU/L (3-35); SGPT/ALT 37 U/L (12-78); SODIUM 139 mmol/L (136-145); TOTAL PROTEIN 6.7 gm/dL (6.4-8.2)
[2017-08-24 15:19] LABS: BILIRUBIN NEGATIVE (NEGATIVE); BLOOD NEGATIVE (NEGATIVE); CLARITY CLEAR (CLEAR); COLOR YELLOW (YELLOW); GLUCOSE NEGATIVE (NEGATIVE); KETONE NEGATIVE (NEGATIVE); LEUKO ESTERASE NEGATIVE (NEGATIVE); NITRITE NEGATIVE (NEGATIVE); SPECIFIC GRAVITY 1.015 (1.005-1.030); UROBILINOGEN 0.2 E.U./dl (0.2-1.0)
[2017-08-24 15:25] LABS: BACTERIA TRACE; RBC 0-2 rbc/hpf (0-2); WBC 0-2 wbc/hpf (0-5)
[2017-08-24 16:15] VITALS: BP 100/57; BP 109/43
--- NOTE | 2017-08-24 16:15 | NUR ---
A 57, admitted to , under the services of TERESA Carvajal DO with a diagnosis of CELLULITIS . Chief complaint is CELLULITIS. Patient arrived via CART WITH RN from ER. Monitor applied. Initial assessment completed. Vital signs taken and recorded. TERESA CARVAJAL DO notified of admission to the unit. Orders received. See assessment for past medical history, medications and allergies. Patient and/or family oriented to unit. [facility] visitation policy reviewed. Clothing/patient valuable form completed. SAVI BANDA
--- NOTE | 2017-08-24 16:30 | NUR ---
PT HAS ALREADY BEEN VACCINATED,
--- NOTE | 2017-08-24 17:02 | NUR ---
MED RECONCILIATION COMPLETED WITH PT AT BEDSIDE. DR ADALI MARKS.
--- NOTE | 2017-08-24 17:30 | NUR ---
PHOTOGRAPHS COMPLETED FOR BLE CELLULITIS. RED,WARM, ANGRY INNER UPPER THIGH AREA,MEDIAL AND ANTERIOR BILATERAL LEGS. NO OPEN AREAS NOTED . KIAN LOPEZ IN AN SPOKE TO PT AND OFFERRED HER RECOMMENDATIONS TO DR BOWLES.
--- NOTE | 2017-08-24 18:15 | NUR ---
MORPHINE 2 MG GIVEN FOR C/O BLE PAIN.05/17.
[2017-08-24 20:00] VITALS: BP 124/59
--- NOTE | 2017-08-24 21:00 | NUR ---
RESTING IN BED WATCHING TV. RESPIRATIONS EASY. LUNGS DIMINISHED. PULSE OX 94% 3L, HUMDIFICATION APPLIED. BLE RED, WARM, AND EDEMATOUS - SEEPAGE NOTED. IV FLUIDS INFUSING PER ORDER. CALL LIGHT WITHIN REACH.
[2017-08-25] VITALS: BP 119/49
--- NOTE | 2017-08-25 | NUR ---
SLEEPING. NO DISTRESS NOTED. RESPIRATIONS EASY. VSS. IV FLUIDS MAINTAINED PER ORDER. CALL LIGHT WITHIN REACH
--- NOTE | 2017-08-25 | NUR ---
UPON REVIEWING MEDS WITH PATIENT, PATIENT STATES SHE TAKES NEURONTIN 2000 MG HS (1600 MG ORDERED), CORRECTED IN MED REC. PLEASE ADJUST. PATIENT TAKES NEURONTIN 1600 MG DAILY IN THE AM AND 2000 MG DAILY HS.
--- NOTE | 2017-08-25 03:43 | NUR ---
MORPHINE GIVEN PER ORDER FOR LOWER BILATERAL LEG AND BACK PAIN RATED "10". SEE MAR.
--- NOTE | 2017-08-25 05:00 | NUR ---
EARLIER MEDS APPEAR EFFECTIVE. RESTING WITH EYES CLOSED. RESPIRATIONS EASY. HOME C-PAP IN USE
--- NOTE | 2017-08-25 05:41 | NUR ---
REQUESTED AND RECEIVED NORCO PER PRN ORDER FOR COMPLAINTS OF BLE PAIN RATING A 10. LEGS REMAIN RED, WARM, AND EDEMATOUS. IV FLUIDS MAINTAINED. CALL LIGHT WITHIN REACH. WILL MONITOR FOR EFFECTIVENESS
[2017-08-25 06:35] LABS: BASO % 0.5 % (0.0-1.0); EOS # 0.1 10*3/uL (0.0-0.4); EOS % 2.6 % (1.0-4.0); HEMATOCRIT 33.2 % (37.0-47.0); HEMOGLOBIN 10.9 g/dl (12.0-16.0); LYMPH # 1.9 10*3/uL (1.3-4.4); LYMPH % 35.5 % (27.0-41.0); MEAN CELL VOLUME 94.1 fl (81.0-99.0); MEAN CORPUSCULAR HGB 30.9 pg (27.0-31.0); MEAN CORPUSCULAR HGB CONC 32.8 g/dl (33.0-37.0); MEAN PLATELET VOLUME 8.8 fl (9.6-12.3); MONO # 0.6 10*3/uL (0.1-1.0); MONO % 10.6 % (3.0-9.0); NEUT # 2.8 10*3/uL (2.3-7.9); NEUT % 50.4 % (47.0-73.0); PLATELET COUNT AUTOMATED 186 10*3/uL (130-400); RED BLOOD COUNT 3.53 10*6/uL (4.10-5.10); RED CELL DISTRI WIDTH 13.2 % (0-14.5); WHITE BLOOD COUNT 5.5 10*3/uL (4.8-10.8)
[2017-08-25 06:47] LABS: BUN 11 mg/dl (7-24); CHLORIDE 105 mmol/L (98-107); CHOLESTEROL 136 mg/dL (<200); CREATININE 0.96 mg/dL (0.55-1.02); PHOSPHOROUS 3.5 mg/dL (2.5-4.9); POTASSIUM 3.9 mmol/L (3.5-5.1); SODIUM 142 mmol/L (136-145); TRIGLYCERIDES 110 mg/dl (<150); VLDL CHOLESTEROL 22 mg/dL (6-40)
[2017-08-25 06:57] LABS: HDL CHOLESTEROL 49 mg/dl (40-60); LDL CHOLESTEROL 65 mg/dL (9-159)
[2017-08-25 08:00] VITALS: BP 109/57
--- NOTE | 2017-08-25 08:00 | NUR ---
PATIENT AWAKE, A&OX3. VITAL SIGNS STABLE. PATIENT SITTING UP WATCHING TV. PLEASANT AND ENGAGING. ABDOMEN SOFT, NONTENDER, NONDISTENDED. BSX4. PATIENT SELF AMBULATES TO THE BATHROOM, DENIES ANY PAIN OR BURNING WHEN VOIDING. LAST BM WAS YESTERDAY. PATIENT HAS CELLULITIS IN BOTH LOWER EXTREMITIES, LEGS ARE RED, WARM TO TOUCH AND PATIENT RATES PAIN AN 8/10. PATIENT HAS AN ORDER FOR MORPHINE 30MG AT 0800. WILL ADMINISTER MEDICATION AND CONTINUE TO ASSESS. VIVIANE HARP SPNELCC
--- NOTE | 2017-08-25 08:15 | NUR ---
Funds Transfer Clerk in to talk to patient. Patient states lives at HOME with HER . There are 1 steps in the home. Physician: DR MACKEY [facility] Home health services: NONE Patient's level of ADLs: INDEPENDENT Patient has working utilities: YES DME: WALKER/CANE/NEB/CPAP/O2 FROM [facility] Follow-up physician's appointment after d/c: PREFERS TO MAKE HER OWN APPT Does patient want to access PORTAL?: Discharge plan HOME. KEITH HARP
[2017-08-25 08:45] LABS: VITAMIN D, 25-HYDROXY 24.2 ng/mL (30-100)
--- NOTE | 2017-08-25 10:15 | NUR ---
PATIENT STILL RATES PAIN AN 8/10 IN BOTH LEGS DUE TO CELLULITIS. PATIENT GIVEN MORPHINE 2MG IVP BY EVANS MANRIQUEZ RN. WILL CONTINUE TO ASSESS PAIN. VIVIANE HARP SPNELCC
--- NOTE | 2017-08-25 11:50 | NUR ---
PATIENT OOB TO WALK THE RICHEY. PATIENT HAD AN UNSTEADY GAIR, BECAME SOB WITH 3L O2 NC. TOOK HER BACK TO HER ROOM AND BACK IN BED. VIVIANE HARP SPNELCC
[2017-08-25 12:00] VITALS: BP 109/52
--- NOTE | 2017-08-25 12:00 | NUR ---
PATIENT RESTING IN BED. VITAL SIGNS STABLE. D/C IV FLUIDS. PT HAS BEEN ORDERED PER THE PATIENTS REQUEST. PATIENT STILL RATES PAIN IN HER LOWER EXTREMITIES A 04/16, INSTRUCTED PATIENT SHE WILL NOT BE ABLE TO RECEIVE PRN MEDS AGAIN UNTIL 1410. WILL CONTINUE TO ASSESS. VIVIANE HARP SPNELCC
--- NOTE | 2017-08-25 13:00 | NUR ---
PATIENT SLEEPING, RESPIRATIONS EASY, NONLABORED. TRENDLE LITTLE SPNRCC
--- NOTE | 2017-08-25 14:33 | NUR ---
MEDICATED WITH PRN PO NORCO FOR BILATERAL LEGS PAIN.
--- NOTE | 2017-08-25 14:59 | NUR ---
DR. DOAN'S OFFICE STAFF NOTIFIED OF CONSULT RE: BILATERAL LEGS CELLULITIS
--- NOTE | 2017-08-25 15:00 | NUR ---
PRN PO NORCO EFFECTIVE, PER PATIENT.
[2017-08-25 16:00] VITALS: BP 96/54
[2017-08-25 20:00] VITALS: BP 138/63
--- NOTE | 2017-08-25 20:00 | NUR ---
PATIENT AWAKE IN BED, FAMILY IN ROOM WITH PATIENT. ASSESSMENT COMPLETE. LUNG SOUNDS CLEAR. LEGS RED, WARM, WET, WITH EDEMA. PATIENT GIVEN A SCHEDULED DOSE OF MORPHINE AT THIS TIME. PATIENT DENIES ANY NEEDS AT THIS TIME. WILL CONTINUE TO MONITOR.
[2017-08-26] VITALS (7 sets, daily range): BP systolic 112–164; BP diastolic 48–69
--- NOTE | 2017-08-26 03:21 | NUR ---
PATIENT MEDICATED WITH MORPHINE AT THIS TIME FOR COMPLAINTS OF PAIN IN LEGS. PATIENT RATED IT A 10/10. WILL MONITOR FOR EFFECTIVENESS.
--- NOTE | 2017-08-26 04:12 | NUR ---
PATIENT STATES THAT MORPHINE WAS EFFECTIVE.
--- NOTE | 2017-08-26 04:36 | NUR ---
PATIENT UP TO RESTROOM AND TO RECLINER. PATIENT NOW COMPLAINING OF UNBEARABLE PAIN IN HER BACK AND LEGS. NORCO GIVEN AT THIS TIME. WILL MONITOR FOR EFFECTIVENESS.
--- NOTE | 2017-08-26 05:14 | NUR ---
PATIENT STATED NORCO WAS EFFECTIVE.
[2017-08-26 05:50] LABS: BUN 9 mg/dl (7-24); CHLORIDE 106 mmol/L (98-107); CREATININE 0.99 mg/dL (0.55-1.02); POTASSIUM 4.1 mmol/L (3.5-5.1); SODIUM 143 mmol/L (136-145)
[2017-08-26 05:52] LABS: BASO % 0.7 % (0.0-1.0); EOS # 0.1 10*3/uL (0.0-0.4); EOS % 2.5 % (1.0-4.0); HEMATOCRIT 34.8 % (37.0-47.0); HEMOGLOBIN 11.3 g/dl (12.0-16.0); LYMPH # 1.9 10*3/uL (1.3-4.4); LYMPH % 33.5 % (27.0-41.0); MEAN CELL VOLUME 95.3 fl (81.0-99.0); MEAN CORPUSCULAR HGB CONC 32.5 g/dl (33.0-37.0); MEAN PLATELET VOLUME 9.5 fl (9.6-12.3); MONO # 0.5 10*3/uL (0.1-1.0); MONO % 8.2 % (3.0-9.0); NEUT # 3.1 10*3/uL (2.3-7.9); NEUT % 54.7 % (47.0-73.0); PLATELET COUNT AUTOMATED 207 10*3/uL (130-400); RED BLOOD COUNT 3.65 10*6/uL (4.10-5.10); RED CELL DISTRI WIDTH 13.1 % (0-14.5); WHITE BLOOD COUNT 5.6 10*3/uL (4.8-10.8)
[2017-08-26 05:53] LABS: PHOSPHOROUS 3.6 mg/dL (2.5-4.9); VANCOMYCIN TROUGH 15.6 ug/mL (10-20)
--- NOTE | 2017-08-26 07:30 | NUR ---
PATIENT UP IN CHAIR WATCHING TV. A&OX3, PLEASANT AND ENGAGING. BSX4, ABD SOFT, NONTENDERED AND NONDISTENDED. PATIENT C/O HESITANCY WITH URINATION BUT DENIES PAIN OR BURNING. BP 112/48, WILL REASSESS. PO2 98% ON 3L NC. TEMP 98.5 O. PATIENT RATES PAIN A 5/10 AT THIS TIME. WILL CONTINUE TO ASSESS. VIVIANE HARP SPNRCC
--- NOTE | 2017-08-26 08:30 | NUR ---
RECHECKED PATIENTS BP, 112/68. PULSE 78. WILL CONTINUE TO MONITOR. TRENDLE LITTLE SPNRCC
--- NOTE | 2017-08-26 10:30 | NUR ---
PATIENT C/O OF PAIN IN LOWER EXTREMITIES. RATED 8/10. PATIENT HAS ORDER FOR PRN MORPHINE 2MG IVP. WILL ADMINISTER. VIVIANE HARP SPNRCC
--- NOTE | 2017-08-26 10:39 | NUR ---
PATIENT GIVE MORPHINE 2MG IVP BY EVANS MANRIQUEZ RN FOR PAIN IN BOTH LOWER EXTREMITIES. WILL CONTINUE TO ASSESS. VIIVANE HARP SPNRCC
--- NOTE | 2017-08-26 12:12 | NUR ---
PATIENT RESTING IN CHAIR. A&OX3. VITAL SIGNS STABLE. TRENDLE LITTLE SPNRCC
--- NOTE | 2017-08-26 18:42 | NUR ---
PHYSICAL THERAPY PT eval completed today on 5. full eval to follow. Recommend PT as per POC with fall risk, min of 1 for mobility including transfers, bed mobilty , balacne and gait to allow return to PLOF. patient is moderate complexity via chart review, tests and evaluation: [id number]. Thank you for this referral Sandra Leblanc PT
--- NOTE | 2017-08-26 20:20 | NUR ---
PT. AWAKE, ALERT, AND ORIENTED X 3 AT THIS TIME. PT. UP TO CHAIR AT THIS TIME, STATES "IT HELPS LOWER THE PAIN IN MY LEGS," WHILE IN THE CHAIR WITH LEGS ELEVATED. PT. DENIES SOB, LUNGS CLEAR T/O. PT. DENIES CP AT THIS TIME, HRR, PPP, BLE EDEMA +1. BS NORMO X 4 QUADS, PT. DENIES NVD. PT. IS AMBULATORY WITH SKIN W/D/I. CALL LIGHT WITHIN REACH, BED IN LOWEST POSITION, WHEELS LOCKED.
[2017-08-27] VITALS: BP 114/59
--- NOTE | 2017-08-27 04:18 | NUR ---
PT. REQUESTED PRN NORCO AT THIS TIME FOR BLE PAIN 02/14. ADM. PRN NORCO AT THIS TIME. WILL ASSESS FOR EFFECTIVENESS.
--- NOTE | 2017-08-27 04:48 | NUR ---
PT. STATED RELIEF OF PAIN AT THIS TIME. PRN PAIN MED EFFECTIVE.
[2017-08-27 07:04] LABS: BASO % 0.5 % (0.0-1.0); EOS # 0.1 10*3/uL (0.0-0.4); EOS % 3.5 % (1.0-4.0); HEMATOCRIT 31.9 % (37.0-47.0); HEMOGLOBIN 10.4 g/dl (12.0-16.0); LYMPH # 1.4 10*3/uL (1.3-4.4); LYMPH % 35.8 % (27.0-41.0); MEAN CELL VOLUME 95.8 fl (81.0-99.0); MEAN CORPUSCULAR HGB 31.2 pg (27.0-31.0); MEAN CORPUSCULAR HGB CONC 32.6 g/dl (33.0-37.0); MEAN PLATELET VOLUME 9.6 fl (9.6-12.3); MONO # 0.4 10*3/uL (0.1-1.0); PLATELET COUNT AUTOMATED 185 10*3/uL (130-400); RED BLOOD COUNT 3.33 10*6/uL (4.10-5.10); RED CELL DISTRI WIDTH 13.2 % (0-14.5)
[2017-08-27 07:32] LABS: BUN 8 mg/dl (7-24); CHLORIDE 107 mmol/L (98-107); CREATININE 0.87 mg/dL (0.55-1.02); PHOSPHOROUS 3.1 mg/dL (2.5-4.9); POTASSIUM 3.7 mmol/L (3.5-5.1); SODIUM 146 mmol/L (136-145)
[2017-08-27 07:54] VITALS: BP 92/43
--- NOTE | 2017-08-27 11:00 | NUR ---
States that medication was effective for pain.
--- NOTE | 2017-08-27 11:40 | NUR ---
Taken off floor to OR for Picc line placement.
[2017-08-27 12:00] VITALS: BP 110/40
--- NOTE | 2017-08-27 13:59 | NUR ---
Medicated with norco per prn order for complaints of leg pain.
[2017-08-27] MEDS ORDERED: CEFAZOLIN1 GM IV (14:01)
--- NOTE | 2017-08-27 14:17 | NUR ---
PHYSICAL THERAPY Patient was seen this pm 1:1 for therapy and was just arriving back from Pic line surgery, sitting in a w/c with her present when approached by therapist. Patient transfers sit to stand GRANTS MANAGER/Min A and ambulated with use of quad cane, 20' x 1, CGA to bedside chair. Patient presented with increased B LE edema, along with reddish, scaling, dry skin tissue, but otherwise reports no new c/o's. Patient educated on proper positioning for edema control and importance of LE ROM to prevent increased pain / stiffness, especially B knees from prolonged bouts of sitting. Patient remained in bedside chair with call light, tray table and telephone. Will continue per POC as tolerated with total treatment time 17 minutes. Yung Rothman, DRYWALL WORKER
--- NOTE | 2017-08-27 14:54 | NUR ---
Spoke to Janet at [facility], , regarding home IV antibiotics. Spoke to Maty at [facility] regarding home IV antibiotics. Information faxed to both.
--- NOTE | 2017-08-27 14:57 | NUR ---
OFFICE STAFF WAS NOTIFIED OF DR. LAST CONSULT. RESPONSE OF NOTIFICATION WAS INFORMATION REQUESTED GIVEN TO HARSH AT DR. LAST OFFICE. REQUESTED THAT FACE SHEET BE FAXED. THIS WILL BE DONE. STATES SHE WILL NOTIFY THE PHYSICAN. MIKE PATEL
--- NOTE | 2017-08-27 15:00 | NUR ---
States that norco given helped to relieve pain.
--- NOTE | 2017-08-27 15:03 | NUR ---
Spoke to patient regarding status of home health and home IV antibiotics. Discussed with patient the information has been faxed to the appropriate places and pt verbalizes an understanding. She states she just needs to be home by noon on Thursday.
--- NOTE | 2017-08-27 15:15 | NUR ---
Dr. Davison called in. States someone will see pt tomorrow.
[2017-08-27 16:00] VITALS: BP 122/50
--- NOTE | 2017-08-27 19:45 | NUR ---
PT. AWAKE, ALERT AND ORIENTED X 3 AT THIS TIME. PT. IN BED WITH AT BEDSIDE AT THIS TIME. PT. CURRENTLY DENIES SOB AT REST WITH 3L VIA NC, LUNGS DIMINISHED T/O WITH SLIGHT EXP WHEEZE IN BLL. HRR, PPP, CELLULITIS TO LE WITH NON-PITTING EDEMA, PT. DENIES CP AT THIS TIME. BOWEL SOUNDS NORMO X 4, DENIES NVD. PT. AMBULATORY WITH CANE, BUT STATED SHE GETS PERKINS. CALL LIGHT WITHIN REACH, BED IN LOWEST POSITION, WHEELS LOCKED.
[2017-08-27 20:00] VITALS: BP 100/42
[2017-08-28 06:47] VITALS: BP 98/50
[2017-08-28 07:09] LABS: BUN 8 mg/dl (7-24); CHLORIDE 101 mmol/L (98-107); CREATININE 0.94 mg/dL (0.55-1.02); POTASSIUM 3.4 mmol/L (3.5-5.1); SODIUM 141 mmol/L (136-145)
[2017-08-28 08:36] VITALS: BP 109/55
--- NOTE | 2017-08-28 10:45 | NUR ---
PHYSICAL THERAPY Sandi was seen this AM 1:1 for her therapy treatment, Pt on 3 L o2 and didnot get SOB with this. Transfer sit/stand and up on the count of three MOD A X 1. Standing balance with her quad cane CG X 1. Followed by gait 42' X 2, with quad cane and CGA X 1. no LOB, one sitting rest with this and was pleased with her gait. PB at rest 109/55. OLIMPIA PUGH CANVASSING MANAGER.
--- NOTE | 2017-08-28 11:13 | NUR ---
PER NICK AT [facility], HOME ATB IS ALL SET. I WILL NOTIFY THEM WHEN I KNOW WHEN PT WILL BE DC'D. [facility] IN PLACE WELL. I WILL NOTIFY THEM OF SAME.
[2017-08-28 12:00] VITALS: BP 116/50
--- NOTE | 2017-08-28 12:48 | NUR ---
PHYSICAL THERAPY Sandi was seen this PM 1:1 for her therapy gait. Transfer sit/stand MIN A X 1, X 2. Gait with her quad cane 80' 2 with one sitting rest with 4 L o2 and got a little SOB with this. Pt back upo in her bedside chair call light, no complaints. OLIMPIA PUGH DIRECTOR CLIENT SERVICES.
--- NOTE | 2017-08-28 12:59 | NUR ---
PT TO BE DC THIS PM. [facility] AND [facility] NOTIFIED AND THEY WILL BEGIN HOME IV ATB TOMORROW AM AT 10. NURSE AND PT AWARE.
--- NOTE | 2017-08-28 13:10 | NUR ---
[facility] [phone] [facility] [phone]
[2017-08-28] MEDS ORDERED: BUMETANIDE1 MG PO (14:02)
[2017-08-28] MEDS ORDERED: LAMISIL250 MG PO (14:02)
[2017-08-28] MEDS ORDERED: ATHLETE'S FOOT15 GM T (14:02)
[2017-08-28 16:00] VITALS: BP 90/30
--- NOTE | 2017-08-28 20:29 | NUR ---
Discharge instructions reviewed with patient/family. Patient receptive and verbalizes understanding. Follow-up care arranged WITH PCP IN 7-10 DAYS AND DIRECTED. Written instructions given to patient/family. PATIENT AWARE THAT [facility] WILL BE THERE TOMORROW MORNING TO START ANTIBIOTIC THERAPY. DAVE ESQUIEVL
--- NOTE | 2017-09-01 08:22 | NUR ---
PHYSICAL THERAPY CO-SIGN I approve of the Phyical Therapy notes written above. SILVERIO STALLWORTH PT
== END 2017-08-28 20:29 | disposition home health service (06) | DRG 872 ==
LOC: ED 13:54 → 5E 15:32 → EDHOLD 15:32 → 5E 15:53
PROVIDERS: Internal Medicine; Internal Medicine Nephrology; Physician Assistant; ADMIT Emergency Medicine
PROC: 02HV33Z Insertion of Infusion Device into Superior Vena Cava, Percutaneous Approach (ICD-10-PCS; principal; 2017-08-27)
DX: A41.9 Sepsis, unspecified organism (principal); E11.22 Type 2 diabetes mellitus with diabetic chronic kidney disease; I50.32 Chronic diastolic (congestive) heart failure; G90.522 Complex regional pain syndrome I of left lower limb; L03.116 Cellulitis of left lower limb; L03.115 Cellulitis of right lower limb; Z68.44 Body mass index [BMI] 60.0-69.9, adult; Z99.81 Dependence on supplemental oxygen; N18.3 Chronic kidney disease, stage 3 (moderate); D64.9 Anemia, unspecified; F41.9 Anxiety disorder, unspecified; F32.9 Major depressive disorder, single episode, unspecified; K21.9 Gastro-esophageal reflux disease without esophagitis; G47.33 Obstructive sleep apnea (adult) (pediatric); E55.9 Vitamin D deficiency, unspecified; J44.9 Chronic obstructive pulmonary disease, unspecified; E66.01 Morbid (severe) obesity due to excess calories; I89.0 Lymphedema, not elsewhere classified; I87.2 Venous insufficiency (chronic) (peripheral); Z96.653 Presence of artificial knee joint, bilateral; Z79.899 Other long term (current) drug therapy; Z86.14 Personal history of Methicillin resistant Staphylococcus aureus infection; Z88.0 Allergy status to penicillin; Z88.8 Allergy status to other drugs, medicaments and biological substances; Z98.891 History of uterine scar from previous surgery; Z90.710 Acquired absence of both cervix and uterus; Z83.3 Family history of diabetes mellitus; Z82.49 Family history of ischemic heart disease and other diseases of the circulatory system; Z82.3 Family history of stroke; Z88.1 Allergy status to other antibiotic agents

== ENCOUNTER 2017-11-28 19:10 | Emergency (ER) | payer BC ==
[~2017-11-28] VITALS: Wt 124.7 kg
[~2017-11-28 19:10] MED LIST changes: +ATHLETE'S FOOT15 GM T; +CEFAZOLIN1 GM IV; +LAMISIL250 MG PO
[2017-11-28 20:49] LABS: BASO % 0.5 % (0.0-1.0); EOS # 0.2 10*3/uL (0.0-0.4); HEMATOCRIT 36.1 % (37.0-47.0); HEMOGLOBIN 11.8 g/dl (12.0-16.0); LYMPH # 2.4 10*3/uL (1.3-4.4); LYMPH % 31.1 % (27.0-41.0); MEAN CORPUSCULAR HGB 30.4 pg (27.0-31.0); MEAN CORPUSCULAR HGB CONC 32.7 g/dl (33.0-37.0); MEAN PLATELET VOLUME 9.5 fl (9.6-12.3); MONO # 0.6 10*3/uL (0.1-1.0); MONO % 7.6 % (3.0-9.0); NEUT # 4.4 10*3/uL (2.3-7.9); NEUT % 57.5 % (47.0-73.0); PLATELET COUNT AUTOMATED 225 10*3/uL (130-400); RED BLOOD COUNT 3.88 10*6/uL (4.10-5.10); RED CELL DISTRI WIDTH 12.6 % (0-14.5); WHITE BLOOD COUNT 7.6 10*3/uL (4.8-10.8)
[2017-11-28 20:59] LABS: ACT PARTIAL THROMBO TIME 25.7 SECONDS (20.8-31.5); INTERNATIONAL NORM RATIO 0.9 (2.0-3.5)
[2017-11-28 21:03] LABS: ALBUMIN 3.3 gm/dl (3.1-4.5); ALKALINE PHOSPHATASE 82 U/L (45-117); BUN 18 mg/dl (7-24); CHLORIDE 99 mmol/L (98-107); CREATININE 1.23 mg/dL (0.55-1.02); LIPASE 93 U/L (73-393); POTASSIUM 3.5 mmol/L (3.5-5.1); SGOT/AST 21 IU/L (3-35); SGPT/ALT 21 U/L (12-78); SODIUM 139 mmol/L (136-145); TOTAL PROTEIN 7.3 gm/dL (6.4-8.2)
[2017-11-28 21:06] LABS: TROPONIN I < 0.015 ng/ml (<0.045)
[2017-11-28 22:13] VITALS: BP 100/56
[2017-11-28] MEDS ORDERED: ZITHROMAX250 MG PO (22:14)
[2017-11-28] MEDS ORDERED: PREDNISONE10 MG PO (22:14)
== END 2017-11-28 22:16 | disposition home or self-care (01) ==
LOC: ED 19:10
PROVIDERS: Nurse Practitioner Family
DX: J20.9 Acute bronchitis, unspecified (principal); J44.0 Chronic obstructive pulmonary disease with (acute) lower respiratory infection; Z90.710 Acquired absence of both cervix and uterus; K21.9 Gastro-esophageal reflux disease without esophagitis; F41.9 Anxiety disorder, unspecified; E66.01 Morbid (severe) obesity due to excess calories; E11.22 Type 2 diabetes mellitus with diabetic chronic kidney disease; N18.3 Chronic kidney disease, stage 3 (moderate); I50.9 Heart failure, unspecified; Z88.0 Allergy status to penicillin; Z88.1 Allergy status to other antibiotic agents; Z88.5 Allergy status to narcotic agent; Z79.82 Long term (current) use of aspirin

== ENCOUNTER 2017-12-12 18:20 | Inpatient (IN) | payer BC ==
[~2017-12-12] VITALS: Ht 170.1 cm; Wt 156.1 kg
--- NOTE | ~2017-12-12 | PR ---
[place], [place] PROGRESS NOTE NAME: VICTORINA MARES [facility] #: [id number] UNIT #: [id number] ROOM: 528 DOCTOR: LISBETH GALLOWAY MD,JERO BIRTHDATE: [birth year] DOS: 12/15/2017 SUBJECTIVE: The patient was noted comfortable at this time without any acute distress. She has been noted with continued gradual reduction of symptoms of coughing, shortness of breath, and wheezing. Significant improvement of the patient was noted in the past 24 hours. OBJECTIVE: VITAL SIGNS: For the patient, which was recorded showed the temperature noted as normal, the respiratory rate of the patient recorded as 20, heart rate 75, blood pressure 127/74, pulse oxygen saturation of the patient on 3 liters was noted 96% saturation. HEENT: Head was atraumatic. Chronic obesity. NECK: Supple. CARDIOVASCULAR: S1, S2 audible. LUNGS: Without any wheeze or crackles. ABDOMEN: Soft, nontender, obese. EXTREMITIES: Without edema. LABORATORY DATA: CBC of the patient, WBC count 15.7, remaining CBC was normal. CMP of the patient noted as glucose 179, BUN 22, creatinine 1.11, CO2 37. IMPRESSION: The patient with stable respiratory status was noted at the present time with resolving acute exacerbation of bronchial asthma, acute bronchitis, chronic respiratory failure, stable, and history of obstructive sleep apnea disorder. PLAN OF THERAPY: No changes in the treatment. The patient could be considered for home discharge today as desired. Tapering dose of prednisone and oral antibiotics were recommended. JERO BOB MD CM:PNTRANS [id number] JERO GALLOWAY MD 12/16/17 0445 interface
--- NOTE | ~2017-12-12 | PR ---
[place], [place] PROGRESS NOTE NAME: VICTORINA MARES [facility] #: [id number] UNIT #: [id number] ROOM: 528 DOCTOR: LISBETH GALLOWAY MD,JERO BIRTHDATE: [birth year] DOS: 12/16/2017 SUBJECTIVE: The patient was noted comfortable at this time, resting was planned for the stress testing to be done today as ordered by the Cardiology Services. Denies symptoms of hemoptysis or chest pain. Shortness of breath, cough, other symptoms resolving. OBJECTIVE: VITAL SIGNS: Normal temperature, respirations 18, heart rate 96, blood pressure 70/50-110/52. Pulse oxygen saturation recorded on 3 liters 96% saturation. HEENT: Head was atraumatic. Eyes nonicterus. NECK: Supple. CARDIOVASCULAR: S1, S2 audible. LUNGS: Without any wheezing or crackles. ABDOMEN: Soft and chronic obesity. Bowel sounds are present. EXTREMITIES: The patient was noted chronic with some minimal edema. IMPRESSION: The patient with resolving acute exacerbation of bronchial asthma with history of a stable chronic hypoxic respiratory failure. PLAN OF MANAGEMENT: No change in pulmonary standpoint, discharge the patient whenever necessary pulmonary standpoint after completion of the cardiac workup. JERO BOB MD CM:PNTRANS [id number] JERO GALLOWAY MD 12/17/17 0238 interface
--- NOTE | ~2017-12-12 | PR ---
[place], [place] PROGRESS NOTE NAME: VICTORINA MARES UNIT #: [id number] ROOM: 528 DOCTOR: JERO SORIANO MD BIRTHDATE: [birth year] DOS: 12/14/2017 SUBJECTIVE: The patient noted comfortable at this time without any acute distress. Shortness of breath and cough symptoms have been gradually subsiding. Denies symptoms of chest pain or any abdominal pain. Currently, planned for getting echocardiogram done. OBJECTIVE: VITAL SIGNS: She remains afebrile in the last 24 hours, respiratory rate 18 this morning. Height 69, blood pressure 117/58. Pulse oxygen saturation 3 liters nasal cannula 94% saturation. HEENT: Chronic obesity. NECK: Supple and obese. CARDIOVASCULAR: S1, S2 audible. LUNGS: Moderate decreased breath sounds with scattered wheezing, no crackles. ABDOMEN: Soft, nontender. EXTREMITIES: Chronic obesity. LABORATORY DATA: Blood culture for the 7th of this month showed no bacterial growth. IMPRESSION: 1. Resolving acute exacerbation of bronchial asthma and acute bronchitis. 2. History of type 2 diabetes mellitus. 3. History of allergic rhinitis. 4. Obstructive sleep apnea disorder. 5. Morbid obesity. PLAN OF MANAGEMENT: Continuation of the bronchodilators with oxygen supplementation. Decrease the Solu-Medrol dose to 40 mg b.i.d. and assess the symptoms responding at current changes with reduction of steroids for the next 24 hours. If the patient continued to do well without any other medical problem, may be considered for home discharge on oral tapering dose of prednisone and the antibiotics at that time. [place], [place] PROGRESS NOTE NAME: VICTORINA MARES UNIT #: [id number] ROOM: 528 DOCTOR: JERO SORIANO MD BIRTHDATE: [birth year] JERO BOB MD CM:PNTRANS [id number] JERO GALLOWAY MD 12/14/17 2329 interface
--- NOTE | ~2017-12-12 | PR ---
[place], [place] PROGRESS NOTE NAME: VICTORINA MARES UNIT #: [id number] ROOM: 528 DOCTOR: FIDEL NEWELL DO BIRTHDATE: [birth year] DOS: 12/16/2017 SUBJECTIVE: The patient noted comfortable sitting at her bedside. She is in no acute distress. She notes her breathing is much improved and seems to be back to baseline. She denies any dyspnea on exertion and denies any coughing at this time. OBJECTIVE: VITAL SIGNS: At time of exam, temperature 98.6, pulse is 65, respiratory rate of 14, blood pressure 110/52, bedside pulse ox 96% on 3 liters via nasal cannula. HEENT: Head is normocephalic, atraumatic. Nares patent. Sclerae nonicteric. NECK: Supple, nontender. CARDIOVASCULAR: Regular rate and rhythm with no rubs, gallops or murmurs appreciated. LUNGS: Normal breath sounds. No respiratory distress. Clear with no rales, no rhonchi, no wheezing appreciated. ABDOMEN: Soft, nontender, nondistended, but obese. Positive bowel sounds. EXTREMITIES: Chronic venous stasis changes to the bilateral lower extremities, but no cyanosis, clubbing, or erythema noted. NEUROLOGIC: Grossly intact without focal neuro deficits. Sensation grossly intact. SKIN: Warm and dry, no rash, no ulcerations, no induration, no nodules noted. LABORATORY AND DIAGNOSTIC DATA: Respiratory viral panel is still pending. Blood cultures are negative. IMPRESSION: 1. Resolving acute exacerbation of bronchial asthma. 2. Acute bronchitis/pneumonitis. 3. Chronic respiratory failure with hypoxia, stable. 4. Obstructive sleep apnea. PLAN OF THERAPY: No changes in the treatment. The patient is cleared for discharge from pulmonary standpoint. Recommend tapering dose of oral prednisone and oral antibiotics upon discharge. FIDEL NEWELL DO [place], [place] PROGRESS NOTE NAME: VICTORINA MARES UNIT #: [id number] ROOM: 528 DOCTOR: FIDEL NEWELL DO BIRTHDATE: [birth year] JERO BOB MD CM:IVAN [id number] FIDEL NEWELL DO 12/16/17 1305 interface
--- NOTE | ~2017-12-12 | CON ---
[place], [place] REPORT OF CONSULTATION NAME: VICTORINA MARES [facility] #: [id number] UNIT #: [id number] ROOM: 528 DOCTOR: JERO SORIANO MD BIRTHDATE: [birth year] DOS: 12/13/2017 CONSULTATION REQUESTED BY: Hospitalist Services. REASON FOR CONSULTATION: Assess the patient for current ongoing acute exacerbation of bronchial asthma and other symptoms. HISTORY OF PRESENT ILLNESS: The patient is a 57-year-old white female patient known with history of bronchial asthma, sleep apnea disorder and others, presented to the hospital. The patient has been noted with increased shortness of breath, coughing or wheezing. The symptom for the patient has been noted with gradual worsening. She was seen in the Emergency Room a couple of weeks ago with similar symptoms. The patient was advised hospitalization, but the patient refused to do so. She has been noted with recent increased respiratory symptom according for the past 2 to 3 days. She has been noted to have cough with excessive chest congestion without any sputum expectoration. The patient denies symptoms of chest pain or hemoptysis. The coughing has been noted mild to moderate with some sputum expectoration reported. Denies symptoms of hemoptysis. Denies symptoms of chest pain. She has a felt partial improvement in symptom from yesterday. REVIEW OF SYSTEMS: CONSTITUTIONAL: She reported symptoms of fever at home. Denies symptoms of rather chills. General weakness and fatigue were reported. EYES: Denies any burning, redness, or tenderness. EARS, NOSE, AND THROAT SYMPTOMS: Denies sore throat, hoarseness, otalgia, postnasal drainage or epistaxis. CARDIOVASCULAR: Denies symptoms of palpitation, anginal pain. Noted with edema of the extremities. GASTROINTESTINAL: Denies symptoms of dysphagia, nausea, vomiting, diarrhea, abdominal pain, hematemesis, melena, or hematochezia. GENITOURINARY: Denies symptoms of dysuria, suprapubic pain, or hematuria. MUSCULOSKELETAL: Without any acute deformities. SKIN: Denies lesions or rashes. CENTRAL NERVOUS SYSTEM: No dizziness, headache, diplopia, syncopal episodes. Remaining systems were reviewed. They were noted all negative. PAST MEDICAL HISTORY: 1. Noted with history of chronic hypoxic respiratory failure. 2. Uncomplicated moderate persistent bronchial asthma. 3. Morbid obesity. 4. Essential hypertension. 5. Hypercholesterolemia. 6. Obstructive sleep apnea disorder, use of CPAP 9 cm water. 7. Gastroesophageal reflux. 8. Allergic rhinitis. 9. Osteoarthritis. 10. Hypercholesterolemia. [place], [place] REPORT OF CONSULTATION NAME: VICTORINA MARES UNIT #: [id number] ROOM: 528 DOCTOR: JERO SORIANO MD BIRTHDATE: [birth year] PAST SURGICAL HISTORY: 1. Partial hysterectomy. 2. T and A. 3. Hemorrhoidectomy. 4. Total knee replacement bilaterally. 5. Left foot surgery with osteomyelitis treated previously as well. SOCIAL HISTORY: The patient is and lives at home, noted nonsmoker lifetime. Denies history of alcohol use or any illicit drug use. She has 2 children. FAMILY HISTORY: The patient's father at age of 81 years with complication of diabetes mellitus and hypertension. Mother at the age of 8282 years old with complication related to the dementia. CURRENT MEDICATIONS: Administered noted use of trazodone, gabapentin, Bumex oral 2 mg b.i.d., MiraLax, conjugated aspirin, pseudoephedrine, bupropion XL, which is Wellbutrin-XL, vitamin D, potassium chloride, famotidine, multivitamin, Zyrtec, aspirin, Cymbalta, Solu-Medrol 60 mg b.i.d., Lovenox 40 mg subcutaneous daily, gabapentin 1600 mg p.o. daily, Dulera, albuterol sulfate via nebulizer p.r.n. use and DuoNeb q.4 hours while awake. She was also receiving the intravenous Levaquin. DRUG ALLERGY HISTORY: That includes allergy to: 1. PENICILLIN. 2. IODINE. 3. DIAZEPAM. 4. AMOXICILLIN/AMPICILLIN. 5. BACITRACIN OINTMENT. 6. QUININ. 7. MEPERIDINE. 8. DILAUDID. PHYSICAL EXAMINATION: GENERAL: A 57-year-old female who has been noted currently awake and alert without any acute distress at time of the assessment. The patient had been currently sitting on the bed without any acute distress. VITAL SIGNS: Height was recorded by the nursing staff on current admission with height of 5 feet 7 inches, weight of 349 pounds, BMI 54.7. Vital signs recorded, the temperature low grade at 100 degrees Fahrenheit, T-max. Respiratory rate recorded 18-20. Heart rate 60-82. Blood pressure 118/49 to 126/76. Pulse oxygen saturation of the patient on 3 liters 96% saturation. HEENT: Chronic severe obesity. Head was atraumatic. Oral mucosa is moist. Decreased posterior pharyngeal space with high tongue base crowding soft tissue structures. NECK: Supple. CARDIOVASCULAR: S1, S2 audible. LUNGS: General reduction in breath sounds noted in the lungs bilaterally with expiratory wheezing. There were no crackles. ABDOMEN: Soft and obese, nontender. [place], [place] REPORT OF CONSULTATION NAME: VICTORINA MARES UNIT #: [id number] ROOM: 528 DOCTOR: LISBETH GALLOWAY MD,[facility] BIRTHDATE: [birth year] EXTREMITIES: Noted with mild edema with no lesions, rash, except dryness of the skin. MUSCULOSKELETAL: Without acute deformities. CENTRAL NERVOUS SYSTEM: Cranial nerves 2-12 intact. No focal deficit. LABORATORY DATA: Lactic acid yesterday was normal. CBC on admission, WBC count 13.9, otherwise normal. Influenza A and B, nasal washing antigen negative. CMP yesterday, on admission, BUN 15, creatinine 1.06, glucose 120. Potassium 3.0. CO2 of 34. LFTs were normal. BMP this morning, BUN 14, creatinine 1.15, glucose 246. CBC this morning, WBC count 14.3, hemoglobin 11.8, remaining CBC was normal. Troponin in addition 2 sets were noted normal today. Chest x-ray ____ images was noted no acute pulmonary infiltration. Peribronchial thickening was noted suggestive of bronchitis. IMPRESSION: 1. The patient currently admitted to the hospital noted with acute exacerbation of bronchial asthma with acute bacterial bronchitis. 2. History of obstructive sleep apnea disorder. 3. The patient with a history of type 2 diabetes mellitus. 4. History of allergic rhinitis. 5. Morbid severe obesity. PLAN OF MANAGEMENT: At this time, the patient will be continued on current dose of steroids. Monitor respiratory status of the patient including wheezing and progression of other symptoms. Sputum for Gram stain and culture if the patient ____ will be ordered and sent to the lab. Otherwise, all other previous treatment including bronchodilators, continue use the CPAP for the patient at home as tolerated. Other change in treatment will be done on the patient based on progression of the illness. JERO BOB MD CM:CONSTR:REPORT OF CONSULTATION 1403 12/13/17 1749 interface
[~2017-12-12 18:20] MED LIST changes: +ZITHROMAX250 MG PO
[2017-12-12 18:24] VITALS: BP 120/53
[2017-12-12 19:31] LABS: BASO % 0.3 % (0.0-1.0); EOS # 0.2 10*3/uL (0.0-0.4); EOS % 1.4 % (1.0-4.0); HEMATOCRIT 38.3 % (37.0-47.0); HEMOGLOBIN 12.4 g/dl (12.0-16.0); LYMPH # 2.7 10*3/uL (1.3-4.4); LYMPH % 19.1 % (27.0-41.0); MEAN CELL VOLUME 92.5 fl (81.0-99.0); MEAN CORPUSCULAR HGB CONC 32.4 g/dl (33.0-37.0); MEAN PLATELET VOLUME 9.4 fl (9.6-12.3); MONO # 0.9 10*3/uL (0.1-1.0); MONO % 6.6 % (3.0-9.0); NEUT # 10.1 10*3/uL (2.3-7.9); NEUT % 72.2 % (47.0-73.0); PLATELET COUNT AUTOMATED 242 10*3/uL (130-400); RED BLOOD COUNT 4.14 10*6/uL (4.10-5.10); WHITE BLOOD COUNT 13.9 10*3/uL (4.8-10.8)
[2017-12-12 19:45] LABS: ALBUMIN 3.2 gm/dl (3.1-4.5); ALKALINE PHOSPHATASE 91 U/L (45-117); BUN 15 mg/dl (7-24); CHLORIDE 95 mmol/L (98-107); CREATININE 1.06 mg/dL (0.55-1.02); LIPASE 80 U/L (73-393); SGOT/AST 21 IU/L (3-35); SGPT/ALT 31 U/L (12-78); SODIUM 139 mmol/L (136-145); TOTAL PROTEIN 7.4 gm/dL (6.4-8.2)
[2017-12-12 19:54] VITALS: BP 121/55
[2017-12-12 20:56] VITALS: BP 118/60
[2017-12-12 20:57] VITALS: BP 118/49
[2017-12-12] MEDS ORDERED: PSEUDOEPHEDRINE30 MG PO (21:21)
[2017-12-12 21:32] VITALS: BP 118/49
[2017-12-13] VITALS: BP 112/43
[2017-12-13 05:36] LABS: CREATININE 1.15 mg/dL (0.55-1.02); FREE T4 0.88 ng/dl (0.76-1.46); PHOSPHOROUS 2.3 mg/dL (2.5-4.9)
[2017-12-13 05:42] LABS: POTASSIUM 4.1 mmol/L (3.5-5.1); THYROID STIM HORMONE (HS) 0.271 uIU/ml (0.358-4.75)
[2017-12-13 05:53] LABS: HEMATOCRIT 37.1 % (37.0-47.0); HEMOGLOBIN 11.8 g/dl (12.0-16.0); MEAN CELL VOLUME 93.9 fl (81.0-99.0); MEAN CORPUSCULAR HGB 29.9 pg (27.0-31.0); MEAN CORPUSCULAR HGB CONC 31.8 g/dl (33.0-37.0); MEAN PLATELET VOLUME 9.8 fl (9.6-12.3); PLATELET COUNT AUTOMATED 230 10*3/uL (130-400); RED BLOOD COUNT 3.95 10*6/uL (4.10-5.10); RED CELL DISTRI WIDTH 12.7 % (0-14.5); WHITE BLOOD COUNT 14.3 10*3/uL (4.8-10.8)
[2017-12-13 06:24] LABS: PLATELET SUFFICIENCY NORMAL (NORMAL); TOTAL CELLS COUNTED 100 #CELLS
[2017-12-13 07:11] LABS: VITAMIN D, 25-HYDROXY 27.4 ng/mL (30-100)
[2017-12-13 08:00] VITALS: BP 114/51
[2017-12-13 12:00] VITALS: BP 126/76
[2017-12-13 16:00] VITALS: BP 111/50
[2017-12-13 20:00] VITALS: BP 129/53
[2017-12-14] VITALS: BP 114/50
[2017-12-14 08:00] VITALS: BP 117/58
[2017-12-14 12:00] VITALS: BP 117/57
[2017-12-14 16:00] VITALS: BP 124/63
[2017-12-14 20:00] VITALS: BP 110/55
[2017-12-15] VITALS: BP 128/59
[2017-12-15 08:00] VITALS: BP 138/66
[2017-12-15 11:25] LABS: BASO % 0.1 % (0.0-1.0); HEMATOCRIT 38.8 % (37.0-47.0); HEMOGLOBIN 12.8 g/dl (12.0-16.0); LYMPH # 1.3 10*3/uL (1.3-4.4); LYMPH % 8.4 % (27.0-41.0); MEAN CELL VOLUME 91.5 fl (81.0-99.0); MEAN CORPUSCULAR HGB 30.2 pg (27.0-31.0); MEAN PLATELET VOLUME 9.3 fl (9.6-12.3); MONO # 0.9 10*3/uL (0.1-1.0); MONO % 5.8 % (3.0-9.0); NEUT # 13.3 10*3/uL (2.3-7.9); PLATELET COUNT AUTOMATED 250 10*3/uL (130-400); RED BLOOD COUNT 4.24 10*6/uL (4.10-5.10); WHITE BLOOD COUNT 15.7 10*3/uL (4.8-10.8)
[2017-12-15 11:39] LABS: ALBUMIN 3.2 gm/dl (3.1-4.5); ALKALINE PHOSPHATASE 92 U/L (45-117); BUN 22 mg/dl (7-24); CHLORIDE 93 mmol/L (98-107); CREATININE 1.11 mg/dL (0.55-1.02); POTASSIUM 3.6 mmol/L (3.5-5.1); SGOT/AST 16 IU/L (3-35); SGPT/ALT 34 U/L (12-78); SODIUM 137 mmol/L (136-145); TOTAL PROTEIN 7.6 gm/dL (6.4-8.2)
[2017-12-15 11:41] LABS: TROPONIN I < 0.015 ng/ml (<0.045)
[2017-12-15 12:00] VITALS: BP 127/74
[2017-12-15 16:00] VITALS: BP 121/51
[2017-12-15 20:00] VITALS: BP 140/55
[2017-12-16] VITALS: BP 137/66
[2017-12-16 08:00] VITALS: BP 110/52
[2017-12-16 12:00] VITALS: BP 117/53
[2017-12-16] MEDS ORDERED: DOXYCYCLINE100 M3 PO (15:55)
[2017-12-16] MEDS ORDERED: PREDNISONE10 MG PO (16:28)
[2017-12-17 00:04] LABS: ADENOVIRUS Negative (Negative); INFLUENZA A Negative (Negative); INFLUENZA B Negative (Negative); METAPNEUMOVIRUS Negative (Negative); PARAINFLUENZA 1 Negative (Negative); PARAINFLUENZA 2 Negative (Negative); PARAINFLUENZA 3 Negative (Negative); RHINOVIRUS Negative (Negative); RSV A Negative (Negative); RSV B Negative (Negative)
== END 2017-12-16 16:03 | disposition home or self-care (01) | DRG 871 ==
LOC: ED 18:20 → 5E 20:01 → EDHOLD 20:01 → 5E 20:48
PROVIDERS: Internal Medicine; Internal Medicine Critical Care Medicine; Physician Assistant
PROC: 5A09357 Assistance with Respiratory Ventilation, Less than 24 Consecutive Hours, Continuous Positive Airway Pressure (ICD-10-PCS; principal; 2017-12-13)
PROC: 4A02XM4 Measurement of Cardiac Total Activity, External Approach (ICD-10-PCS; 2017-12-16)
PROC: 3E073KZ Introduction of Other Diagnostic Substance into Coronary Artery, Percutaneous Approach (ICD-10-PCS; 2017-12-16)
DX: A41.9 Sepsis, unspecified organism (principal); J18.9 Pneumonia, unspecified organism; J96.11 Chronic respiratory failure with hypoxia; E44.0 Moderate protein-calorie malnutrition; E87.8 Other disorders of electrolyte and fluid balance, not elsewhere classified; J44.0 Chronic obstructive pulmonary disease with (acute) lower respiratory infection; J45.901 Unspecified asthma with (acute) exacerbation; E66.01 Morbid (severe) obesity due to excess calories; I50.32 Chronic diastolic (congestive) heart failure; J44.1 Chronic obstructive pulmonary disease with (acute) exacerbation; Z68.43 Body mass index [BMI] 50.0-59.9, adult; E87.6 Hypokalemia; G47.33 Obstructive sleep apnea (adult) (pediatric); I87.2 Venous insufficiency (chronic) (peripheral); J20.9 Acute bronchitis, unspecified; F41.9 Anxiety disorder, unspecified; N18.3 Chronic kidney disease, stage 3 (moderate); E55.9 Vitamin D deficiency, unspecified; F32.9 Major depressive disorder, single episode, unspecified; K21.9 Gastro-esophageal reflux disease without esophagitis; Z96.653 Presence of artificial knee joint, bilateral; Z83.3 Family history of diabetes mellitus; Z82.49 Family history of ischemic heart disease and other diseases of the circulatory system; Z82.3 Family history of stroke; Z99.81 Dependence on supplemental oxygen; Z90.710 Acquired absence of both cervix and uterus; Z88.0 Allergy status to penicillin; Z88.1 Allergy status to other antibiotic agents; Z88.8 Allergy status to other drugs, medicaments and biological substances; Z79.899 Other long term (current) drug therapy; Z79.82 Long term (current) use of aspirin

== ENCOUNTER 2018-01-04 14:22 | Inpatient (IN) | payer OTHER ==
[~2018-01-04] VITALS: Ht 171.4 cm; Wt 159.4 kg
[~2018-01-04 14:22] MED LIST changes: +PSEUDOEPHEDRINE30 MG PO
[2018-01-04 14:26] VITALS: BP 110/60
[2018-01-04 15:32] LABS: BASO % 0.4 % (0.0-1.0); EOS # 0.3 10*3/uL (0.0-0.4); HEMATOCRIT 37.2 % (37.0-47.0); HEMOGLOBIN 11.9 g/dl (12.0-16.0); LYMPH # 2.4 10*3/uL (1.3-4.4); LYMPH % 28.8 % (27.0-41.0); MEAN CELL VOLUME 94.7 fl (81.0-99.0); MEAN CORPUSCULAR HGB 30.3 pg (27.0-31.0); MEAN PLATELET VOLUME 9.5 fl (9.6-12.3); MONO # 0.7 10*3/uL (0.1-1.0); MONO % 8.4 % (3.0-9.0); NEUT # 4.9 10*3/uL (2.3-7.9); NEUT % 59.3 % (47.0-73.0); PLATELET COUNT AUTOMATED 212 10*3/uL (130-400); RED BLOOD COUNT 3.93 10*6/uL (4.10-5.10); RED CELL DISTRI WIDTH 13.6 % (0-14.5); WHITE BLOOD COUNT 8.3 10*3/uL (4.8-10.8)
[2018-01-04 15:48] LABS: ALBUMIN 3.4 gm/dl (3.1-4.5); CREATININE 1.13 mg/dL (0.55-1.02); POTASSIUM 3.5 mmol/L (3.5-5.1)
[2018-01-04 16:00] VITALS: BP 140/62
[2018-01-04 17:37] LABS: BILIRUBIN NEGATIVE (NEGATIVE); BLOOD NEGATIVE (NEGATIVE); CLARITY SL CLOUDY (CLEAR); COLOR YELLOW (YELLOW); GLUCOSE NEGATIVE (NEGATIVE); KETONE NEGATIVE (NEGATIVE); LEUKO ESTERASE NEGATIVE (NEGATIVE); NITRITE NEGATIVE (NEGATIVE); PH 6.5 (5.0-9.0); UROBILINOGEN 0.2 E.U./dl (0.2-1.0)
[2018-01-04] MEDS ORDERED: DUONEB 3 MG/3 ML3 M1 INH (17:41)
[2018-01-04 17:51] LABS: RBC 0-2 rbc/hpf (0-2)
[2018-01-04 17:52] LABS: BACTERIA TRACE; CALCIUM OXALATE CRYSTALS 1+
[2018-01-04 18:00] VITALS: BP 105/40
[2018-01-05] VITALS: BP 100/64
[2018-01-05 06:51] LABS: BASO % 0.3 % (0.0-1.0); EOS # 0.3 10*3/uL (0.0-0.4); HEMATOCRIT 36.5 % (37.0-47.0); HEMOGLOBIN 11.5 g/dl (12.0-16.0); LYMPH # 2.3 10*3/uL (1.3-4.4); LYMPH % 35.3 % (27.0-41.0); MEAN CELL VOLUME 95.8 fl (81.0-99.0); MEAN CORPUSCULAR HGB 30.2 pg (27.0-31.0); MEAN CORPUSCULAR HGB CONC 31.5 g/dl (33.0-37.0); MEAN PLATELET VOLUME 9.4 fl (9.6-12.3); MONO # 0.7 10*3/uL (0.1-1.0); MONO % 10.2 % (3.0-9.0); NEUT # 3.3 10*3/uL (2.3-7.9); NEUT % 49.9 % (47.0-73.0); PLATELET COUNT AUTOMATED 184 10*3/uL (130-400); RED BLOOD COUNT 3.81 10*6/uL (4.10-5.10); RED CELL DISTRI WIDTH 13.7 % (0-14.5); WHITE BLOOD COUNT 6.6 10*3/uL (4.8-10.8)
[2018-01-05 06:59] LABS: BUN 9 mg/dl (7-24); CHLORIDE 102 mmol/L (98-107); PHOSPHOROUS 3.4 mg/dL (2.5-4.9); POTASSIUM 3.6 mmol/L (3.5-5.1); SODIUM 142 mmol/L (136-145)
[2018-01-05 07:54] VITALS: BP 124/60
[2018-01-05 12:00] VITALS: BP 90/62
[2018-01-05 16:00] VITALS: BP 101/45
[2018-01-05 20:00] VITALS: BP 100/53
[2018-01-06] VITALS: BP 90/47
[2018-01-06 07:11] LABS: BASO % 0.5 % (0.0-1.0); EOS # 0.3 10*3/uL (0.0-0.4); EOS % 3.9 % (1.0-4.0); HEMATOCRIT 38.6 % (37.0-47.0); HEMOGLOBIN 12.1 g/dl (12.0-16.0); LYMPH # 2.5 10*3/uL (1.3-4.4); LYMPH % 39.8 % (27.0-41.0); MEAN CELL VOLUME 95.5 fl (81.0-99.0); MEAN CORPUSCULAR HGB CONC 31.3 g/dl (33.0-37.0); MEAN PLATELET VOLUME 9.5 fl (9.6-12.3); MONO # 0.6 10*3/uL (0.1-1.0); MONO % 9.4 % (3.0-9.0); NEUT # 2.9 10*3/uL (2.3-7.9); NEUT % 46.1 % (47.0-73.0); PLATELET COUNT AUTOMATED 221 10*3/uL (130-400); RED BLOOD COUNT 4.04 10*6/uL (4.10-5.10); WHITE BLOOD COUNT 6.4 10*3/uL (4.8-10.8)
[2018-01-06 07:49] LABS: BUN 10 mg/dl (7-24); CHLORIDE 99 mmol/L (98-107); POTASSIUM 3.6 mmol/L (3.5-5.1); SODIUM 141 mmol/L (136-145)
[2018-01-06 08:00] VITALS: BP 101/41
[2018-01-06 10:49] VITALS: BP 100/50
[2018-01-06 12:00] VITALS: BP 128/72
[2018-01-06 16:00] VITALS: BP 100/40; BP 96/27
[2018-01-06 20:00] VITALS: BP 123/55
[2018-01-07] VITALS: BP 126/58
[2018-01-07 07:09] LABS: BASO % 0.4 % (0.0-1.0); EOS # 0.2 10*3/uL (0.0-0.4); EOS % 4.5 % (1.0-4.0); HEMATOCRIT 33.3 % (37.0-47.0); HEMOGLOBIN 10.4 g/dl (12.0-16.0); LYMPH # 1.7 10*3/uL (1.3-4.4); MEAN CORPUSCULAR HGB CONC 31.2 g/dl (33.0-37.0); MEAN PLATELET VOLUME 9.5 fl (9.6-12.3); MONO # 0.6 10*3/uL (0.1-1.0); MONO % 13.4 % (3.0-9.0); NEUT # 2.1 10*3/uL (2.3-7.9); NEUT % 44.5 % (47.0-73.0); PLATELET COUNT AUTOMATED 181 10*3/uL (130-400); RED BLOOD COUNT 3.47 10*6/uL (4.10-5.10); WHITE BLOOD COUNT 4.7 10*3/uL (4.8-10.8)
[2018-01-07 07:30] LABS: BUN 10 mg/dl (7-24); CHLORIDE 100 mmol/L (98-107); CREATININE 1.08 mg/dL (0.55-1.02); SODIUM 141 mmol/L (136-145)
[2018-01-07 08:00] VITALS: BP 107/57
[2018-01-07 12:00] VITALS: BP 139/49
[2018-01-07 16:00] VITALS: BP 127/51
[2018-01-07 20:00] VITALS: BP 103/35
[2018-01-08] VITALS: BP 118/64
[2018-01-08 08:00] VITALS: BP 101/40
[2018-01-08 08:21] LABS: BUN 12 mg/dl (7-24); CHLORIDE 100 mmol/L (98-107); CREATININE 1.03 mg/dL (0.55-1.02); POTASSIUM 3.2 mmol/L (3.5-5.1); SODIUM 141 mmol/L (136-145)
[2018-01-08 08:30] LABS: BASO % 0.4 % (0.0-1.0); EOS # 0.2 10*3/uL (0.0-0.4); EOS % 4.3 % (1.0-4.0); HEMATOCRIT 32.8 % (37.0-47.0); HEMOGLOBIN 10.3 g/dl (12.0-16.0); LYMPH # 1.7 10*3/uL (1.3-4.4); LYMPH % 34.9 % (27.0-41.0); MEAN CELL VOLUME 95.3 fl (81.0-99.0); MEAN CORPUSCULAR HGB 29.9 pg (27.0-31.0); MEAN CORPUSCULAR HGB CONC 31.4 g/dl (33.0-37.0); MEAN PLATELET VOLUME 9.7 fl (9.6-12.3); MONO # 0.5 10*3/uL (0.1-1.0); NEUT # 2.4 10*3/uL (2.3-7.9); NEUT % 49.2 % (47.0-73.0); PLATELET COUNT AUTOMATED 183 10*3/uL (130-400); RED BLOOD COUNT 3.44 10*6/uL (4.10-5.10); RED CELL DISTRI WIDTH 13.8 % (0-14.5); WHITE BLOOD COUNT 4.9 10*3/uL (4.8-10.8)
[2018-01-08 12:00] VITALS: BP 106/50
[2018-01-08 16:00] VITALS: BP 110/59
[2018-01-08 20:00] VITALS: BP 109/56
[2018-01-09 00:36] VITALS: BP 114/41
[2018-01-09 07:15] LABS: BASO % 0.6 % (0.0-1.0); EOS # 0.2 10*3/uL (0.0-0.4); EOS % 3.9 % (1.0-4.0); HEMATOCRIT 31.9 % (37.0-47.0); HEMOGLOBIN 10.3 g/dl (12.0-16.0); LYMPH # 1.6 10*3/uL (1.3-4.4); MEAN CELL VOLUME 94.9 fl (81.0-99.0); MEAN CORPUSCULAR HGB 30.7 pg (27.0-31.0); MEAN CORPUSCULAR HGB CONC 32.3 g/dl (33.0-37.0); MEAN PLATELET VOLUME 9.1 fl (9.6-12.3); MONO # 0.5 10*3/uL (0.1-1.0); MONO % 9.7 % (3.0-9.0); NEUT % 55.6 % (47.0-73.0); PLATELET COUNT AUTOMATED 180 10*3/uL (130-400); RED BLOOD COUNT 3.36 10*6/uL (4.10-5.10); RED CELL DISTRI WIDTH 13.9 % (0-14.5); WHITE BLOOD COUNT 5.4 10*3/uL (4.8-10.8)
[2018-01-09 07:31] LABS: BUN 12 mg/dl (7-24); CHLORIDE 101 mmol/L (98-107); CREATININE 0.99 mg/dL (0.55-1.02); POTASSIUM 3.2 mmol/L (3.5-5.1); SODIUM 141 mmol/L (136-145)
[2018-01-09 08:00] VITALS: BP 100/46
[2018-01-09 12:00] VITALS: BP 102/42
[2018-01-09 16:00] VITALS: BP 117/61
[2018-01-09 20:00] VITALS: BP 91/52
[2018-01-10] VITALS: BP 106/35
[2018-01-10 08:00] VITALS: BP 98/42
[2018-01-10 08:05] LABS: BASO % 0.6 % (0.0-1.0); EOS # 0.2 10*3/uL (0.0-0.4); EOS % 4.3 % (1.0-4.0); HEMATOCRIT 33.1 % (37.0-47.0); HEMOGLOBIN 10.6 g/dl (12.0-16.0); LYMPH # 2.2 10*3/uL (1.3-4.4); LYMPH % 48.3 % (27.0-41.0); MEAN CELL VOLUME 93.5 fl (81.0-99.0); MEAN CORPUSCULAR HGB 29.9 pg (27.0-31.0); MEAN PLATELET VOLUME 9.1 fl (9.6-12.3); MONO # 0.4 10*3/uL (0.1-1.0); MONO % 9.3 % (3.0-9.0); NEUT # 1.7 10*3/uL (2.3-7.9); NEUT % 37.3 % (47.0-73.0); PLATELET COUNT AUTOMATED 181 10*3/uL (130-400); RED BLOOD COUNT 3.54 10*6/uL (4.10-5.10); RED CELL DISTRI WIDTH 13.8 % (0-14.5); WHITE BLOOD COUNT 4.6 10*3/uL (4.8-10.8)
[2018-01-10 08:33] LABS: ALBUMIN 2.7 gm/dl (3.1-4.5); ALKALINE PHOSPHATASE 64 U/L (45-117); BUN 11 mg/dl (7-24); CHLORIDE 102 mmol/L (98-107); CREATININE 0.97 mg/dL (0.55-1.02); PHOSPHOROUS 3.5 mg/dL (2.5-4.9); POTASSIUM 3.3 mmol/L (3.5-5.1); SGOT/AST 29 IU/L (3-35); SGPT/ALT 14 U/L (12-78); SODIUM 141 mmol/L (136-145); TOTAL PROTEIN 6.4 gm/dL (6.4-8.2)
[2018-01-10 09:15] VITALS: BP 118/76
[2018-01-10 09:30] VITALS: BP 112/64
[2018-01-10 12:00] VITALS: BP 102/80
[2018-01-10] MEDS ORDERED: CEFTRIAXONE1 GM IJ (14:50)
== END 2018-01-10 15:28 | disposition home health service (06) | DRG 602 ==
LOC: ED 14:22 → EDHOLD 16:08 → 5E 16:08
PROVIDERS: Family Medicine; Internal Medicine; Nurse Practitioner; Student in an Organized Health Care Education/Training Program
PROC: 5A09357 Assistance with Respiratory Ventilation, Less than 24 Consecutive Hours, Continuous Positive Airway Pressure (ICD-10-PCS; principal; 2018-01-08)
PROC: 5A09357 Assistance with Respiratory Ventilation, Less than 24 Consecutive Hours, Continuous Positive Airway Pressure (ICD-10-PCS; 2018-01-10)
DX: L03.115 Cellulitis of right lower limb (principal); I50.33 Acute on chronic diastolic (congestive) heart failure; J96.10 Chronic respiratory failure, unspecified whether with hypoxia or hypercapnia; Z99.81 Dependence on supplemental oxygen; Z68.43 Body mass index [BMI] 50.0-59.9, adult; I13.0 Hypertensive heart and chronic kidney disease with heart failure and stage 1 through stage 4 chronic kidney disease, or unspecified chronic kidney disease; N18.3 Chronic kidney disease, stage 3 (moderate); W57.XXXA Bitten or stung by nonvenomous insect and other nonvenomous arthropods, initial encounter; J45.909 Unspecified asthma, uncomplicated; K21.9 Gastro-esophageal reflux disease without esophagitis; R33.9 Retention of urine, unspecified; F41.9 Anxiety disorder, unspecified; F32.9 Major depressive disorder, single episode, unspecified; D64.9 Anemia, unspecified; G47.33 Obstructive sleep apnea (adult) (pediatric); E66.9 Obesity, unspecified; L03.116 Cellulitis of left lower limb; G89.29 Other chronic pain; Z96.653 Presence of artificial knee joint, bilateral; Z82.49 Family history of ischemic heart disease and other diseases of the circulatory system; Z90.89 Acquired absence of other organs; Z90.710 Acquired absence of both cervix and uterus; Z83.3 Family history of diabetes mellitus; Z88.0 Allergy status to penicillin; Z88.8 Allergy status to other drugs, medicaments and biological substances; Z88.1 Allergy status to other antibiotic agents; Z79.899 Other long term (current) drug therapy; Y93.89 Activity, other specified; Y92.89 Other specified places as the place of occurrence of the external cause; Y99.8 Other external cause status

== ENCOUNTER 2018-01-15 14:51 | Inpatient (IN) | payer OTHER ==
[~2018-01-15] VITALS: Ht 171.4 cm; Wt 164.9 kg
--- NOTE | ~2018-01-15 | PR ---
[place], [place] PROGRESS NOTE NAME: VICTORINA MARES [facility] #: [id number] UNIT #: [id number] ROOM: 412 DOCTOR: GAGAN SMITH,DECEMBER BIRTHDATE: [birth year] DOS: 01/17/2018 SUBJECTIVE: The patient is a 57-year-old morbidly obese female who is being followed for bilateral lower extremity cellulitis as well as adverse drug reaction. She had a rash that occurred while she was outpatient on Rocephin she had been discharged with for her lower extremity cellulitis. She has had improvement of pain and erythema of her lower extremities and starting vancomycin yesterday. Rashes overall of her extremity is slightly better, itching is better. She has been afebrile, no shaking chills. Does still have some discomfort at the site where she had main line yesterday, it was removed and the tip culture. Her tip culture is pending. Blood cultures remained sterile. She does complain of some constipation. No nausea or vomiting. OBJECTIVE: VITAL SIGNS: Temperature 97.6, pulse 67, respirations 18, BP 90/48. LABORATORY DATA: WBC 6.5, platelets 228, BUN 13, creatinine 1.06. LFTs within normal limits. PHYSICAL EXAMINATION: GENERAL: A 57-year-old morbidly obese female in no acute distress. HEAD, EYES, EARS, NOSE AND THROAT: Normocephalic, no thrush. LUNGS: Clear to auscultation bilaterally. Respirations even and unlabored. HEART: Regular rhythm. No murmur appreciated. ABDOMEN: Soft, obese, nontender. EXTREMITIES: +3 to 4 edema bilateral lower extremities. Erythema improving. SKIN: Warm, dry, has a faint pink rash over all extremities. Right arm where she had had a main line placed, there is a little erythema and some tenderness above it, though no palpable cord or erythema to suggest phlebitis. ASSESSMENT: Bilateral lower extremity cellulitis, improving on vancomycin, adverse drug reaction with a rash due to Rocephin. PLAN: At this point, Rocephin needs to be added to her allergy list. She is on scheduled Benadryl for a few more days. Continue the IV vancomycin. If she is discharged on orals, we would recommend either doxycycline or Bactrim to cover MRSA given her frequent hospitalizations. We will get an ultrasound of the right arm to rule out DVT. ADDENDUM After reviewing the chart and the laboratory data and with microbiology, I agree with above plans as described. We will follow the patient up clinically and adjust accordingly. FRANCESCO LUIS FARAH [place], [place] PROGRESS NOTE NAME: VICTORINA MARES UNIT #: [id number] ROOM: 412 DOCTOR: GAGAN SMITHDECEMBER BIRTHDATE: [birth year] ANGELA LOPEZ MD CM:PNTRANS [id number] DECEMBER GAGAN SMITH 01/18/18 0820 interface
--- NOTE | ~2018-01-15 | CON ---
[place], [place] REPORT OF CONSULTATION NAME: VICTORINA MARES UNIT #: [id number] ROOM: 412 DOCTOR: JESSICA PABLO,ANGELA [place] BIRTHDATE: [birth year] DOS: 01/16/2018 ADDENDUM I agree with the above plans as described in the note. We will follow the patient up clinically and adjust according to the labs, radiographs and microbiology. ANGELA LOPEZ MD CM:CONSTR:REPORT OF CONSULTATION 43 01/17/182203 interface
--- NOTE | ~2018-01-15 | CON ---
[place], [place] REPORT OF CONSULTATION NAME: VICTORINA MARES UNIT #: [id number] ROOM: 412 DOCTOR: GAGAN SMITH,DECEMBER BIRTHDATE: [birth year] DOS: 01/16/2018 HISTORY OF PRESENT ILLNESS: The patient is a 57-year-old morbidly obese female who was recently here from January 04 to January 10 with cellulitis. She was discharged with ____ line and orders for Rocephin for 10 days. She has developed erythema and itchiness over all four extremities now, especially where the midline is. She had some chills the night before last, has also had a 6 pound weight gain. ID is consulted for cellulitis. She also had some dysuria yesterday, which improved with a dose of fluconazole. She has itching and irritation consistent with Libia vaginitis. Thus far, her blood and urine cultures are sterile. Her urinalysis showed no pyuria. I reviewed prior cultures from prior hospitalizations. PAST MEDICAL HISTORY: As above, as well as anxiety, asthma, cellulitis, CHF, renal disease, depression, GERD, hepatic steatosis, obstructive sleep apnea, RSD of left lower extremity, urinary retention, venous stasis of bilateral lower extremities, vitamin D deficiency. She has significant chronic lower extremity edema, rhinoplasty, hysterectomy, bilateral knee replacements, tonsillectomy, . SOCIAL HISTORY: Nonsmoker, nondrinker. No illicit drug use. FAMILY MEDICAL HISTORY: Both parents are , both with diabetes and heart disease. Father also with CVA. ALLERGIES: Include QUININE, PENICILLIN, CATGUT SUTURES, NEOSPORIN, AMPICILLIN, DIAZEPAM causes hallucinations, AMPICILLIN caused rash, HYDROMORPHONE, MEPERIDINE. CURRENT MEDICATIONS: Vitamin D, K-Dur, MiraLax, Theragran, Pepcid, Premarin, Lovenox, Cymbalta, Wellbutrin, aspirin, DuoNeb, Benadryl, Desyrel, Lamisil cream, cefazolin, Xanax, Neurontin, Zyrtec, Dulera, MS Contin, [place], clindamycin, Lasix, Zofran, milk of mag, Dulcolax and Tylenol. REVIEW OF SYSTEMS: As above in history of present illness. She continues to have pain of bilateral lower extremities, which she states is a little better, also continues with significant edema and erythema, which she states is little better. There is a little sign of peeling on the right lower extremity. Again, she has itchy red rash over all four extremities, especially at the midline sites. No nausea or vomiting. No cough. Little shortness of breath. She is on O2 via nasal cannula. She had dysuria yesterday, improved with fluconazole. She again has symptoms Libia vaginitis, chronic lower extremity edema, morbidly obese. No headache or dizziness, chest pain or palpitations. Further review of systems is unremarkable. The itchy rash has occurred just over the last couple of days. No documented fevers, but did have chills a couple of nights ago. LABORATORY DATA: Cultures as reviewed above. WBC 6.0, platelets 234. BUN 14, creatinine 1.11. [place], [place] REPORT OF CONSULTATION NAME: VICTORINA MARES UNIT #: [id number] ROOM: 412 DOCTOR: GAGAN SMITH,DECEMBER BIRTHDATE: [birth year] PHYSICAL EXAMINATION: VITAL SIGNS: Temperature 98.4, pulse 84, respirations 17, BP 120/62. GENERAL: A 57-year-old morbidly obese, pleasant female, nontoxic in appearance. HEAD, EYES, EARS, NOSE AND THROAT: Normocephalic. No thrush. NECK: Supple. LUNGS: Clear to auscultation bilaterally. Respirations even and unlabored. HEART: Regular rhythm. No murmur appreciated. ABDOMEN: Soft, obese, nontender. Positive bowel sounds. EXTREMITIES: +3 to 4 edema to bilateral lower extremities with significant erythema of bilateral lower legs, also some mild erythema on the right medial distal thigh with some signs of peeling. No open wounds. She also has faint red itchy rash over all 4 extremities. Right upper extremity midline in place with erythema, though no discharge at insertion site. No palpable cord above it. No signs of phlebitis. ASSESSMENT: Bilateral lower extremity cellulitis, now with adverse drug reaction with a rash due to Rocephin. PLAN: We will stop the Ancef and clindamycin, change her over to vancomycin. She has a significant candidate for MRSA given her multiple hospitalizations, give her Benadryl 25 mg p.o. q. 8 hours around the clock, remove the midline, culture the tip, would consider transitioning to oral medications if she responds well to vancomycin such as doxycycline, linezolid would not be a good option due to her two SSRIs. Case reviewed with Dr. Breaux. ADDENDUM I agree with the above plans as described in the note. We will follow the patient up clinically and adjust according to the labs, radiographs and microbiology. FRANCESCO FARAH CNP ANGELA LOPEZ MD CM:CONSTR:REPORT OF CONSULTATION 1741 01/17/18 2864 interface
[~2018-01-15 14:51] MED LIST changes: +CEFTRIAXONE1 GM IJ
[2018-01-15 14:54] VITALS: BP 136/42
[2018-01-15 15:59] LABS: BASO # 0.1 10*3/uL (0.0-0.1); BASO % 0.7 % (0.0-1.0); EOS # 0.2 10*3/uL (0.0-0.4); EOS % 2.9 % (1.0-4.0); HEMATOCRIT 32.6 % (37.0-47.0); HEMOGLOBIN 10.5 g/dl (12.0-16.0); LYMPH # 2.5 10*3/uL (1.3-4.4); MEAN CELL VOLUME 93.9 fl (81.0-99.0); MEAN CORPUSCULAR HGB 30.3 pg (27.0-31.0); MEAN CORPUSCULAR HGB CONC 32.2 g/dl (33.0-37.0); MEAN PLATELET VOLUME 9.5 fl (9.6-12.3); MONO # 0.5 10*3/uL (0.1-1.0); MONO % 7.9 % (3.0-9.0); NEUT # 3.5 10*3/uL (2.3-7.9); NEUT % 51.9 % (47.0-73.0); PLATELET COUNT AUTOMATED 225 10*3/uL (130-400); RED BLOOD COUNT 3.47 10*6/uL (4.10-5.10); RED CELL DISTRI WIDTH 13.7 % (0-14.5); WHITE BLOOD COUNT 6.8 10*3/uL (4.8-10.8)
[2018-01-15 16:10] LABS: ACT PARTIAL THROMBO TIME 25.7 SECONDS (20.8-31.5); INTERNATIONAL NORM RATIO 0.9 (2.0-3.5)
[2018-01-15 16:18] LABS: ALBUMIN 3.2 gm/dl (3.1-4.5); ALKALINE PHOSPHATASE 80 U/L (45-117); BUN 14 mg/dl (7-24); CHLORIDE 100 mmol/L (98-107); CREATININE 1.07 mg/dL (0.55-1.02); POTASSIUM 3.8 mmol/L (3.5-5.1); SGOT/AST 26 IU/L (3-35); SGPT/ALT 18 U/L (12-78); SODIUM 141 mmol/L (136-145); TOTAL PROTEIN 6.9 gm/dL (6.4-8.2); TROPONIN I < 0.015 ng/ml (<0.045)
[2018-01-15 16:31] LABS: BILIRUBIN NEGATIVE (NEGATIVE); BLOOD NEGATIVE (NEGATIVE); CLARITY CLEAR (CLEAR); COLOR YELLOW (YELLOW); GLUCOSE NEGATIVE (NEGATIVE); KETONE NEGATIVE (NEGATIVE); LEUKO ESTERASE TRACE (NEGATIVE); NITRITE NEGATIVE (NEGATIVE); PH 6.5 (5.0-9.0); UROBILINOGEN 0.2 E.U./dl (0.2-1.0)
[2018-01-15 16:55] VITALS: BP 96/51
[2018-01-15 16:56] LABS: EPITHELIAL CELLS 35-40
[2018-01-15 16:57] LABS: BACTERIA TRACE; RBC 0-2 rbc/hpf (0-2)
[2018-01-15 17:48] VITALS: BP 100/49
[2018-01-15 20:00] VITALS: BP 118/52
[2018-01-15 21:45] VITALS: BP 118/44
[2018-01-16] VITALS: BP 114/49
[2018-01-16 06:09] LABS: BASO # 0.1 10*3/uL (0.0-0.1); BASO % 0.8 % (0.0-1.0); EOS # 0.2 10*3/uL (0.0-0.4); EOS % 3.4 % (1.0-4.0); HEMATOCRIT 33.9 % (37.0-47.0); HEMOGLOBIN 10.7 g/dl (12.0-16.0); LYMPH # 2.3 10*3/uL (1.3-4.4); LYMPH % 37.7 % (27.0-41.0); MEAN CELL VOLUME 95.2 fl (81.0-99.0); MEAN CORPUSCULAR HGB 30.1 pg (27.0-31.0); MEAN CORPUSCULAR HGB CONC 31.6 g/dl (33.0-37.0); MEAN PLATELET VOLUME 9.9 fl (9.6-12.3); MONO # 0.5 10*3/uL (0.1-1.0); NEUT % 49.8 % (47.0-73.0); PLATELET COUNT AUTOMATED 234 10*3/uL (130-400); RED BLOOD COUNT 3.56 10*6/uL (4.10-5.10); RED CELL DISTRI WIDTH 13.7 % (0-14.5)
[2018-01-16 06:27] LABS: BUN 14 mg/dl (7-24); CHLORIDE 101 mmol/L (98-107); POTASSIUM 3.4 mmol/L (3.5-5.1); SODIUM 143 mmol/L (136-145)
[2018-01-16 06:28] LABS: CREATININE 1.11 mg/dL (0.55-1.02)
[2018-01-16 06:36] LABS: ACT PARTIAL THROMBO TIME 25.7 SECONDS (20.8-31.5); INTERNATIONAL NORM RATIO 0.9 (2.0-3.5)
[2018-01-16 08:00] VITALS: BP 102/62
[2018-01-16 12:00] VITALS: BP 103/48
[2018-01-16 16:00] VITALS: BP 120/62
[2018-01-16 20:00] VITALS: BP 107/45
[2018-01-17] VITALS: BP 106/97
[2018-01-17 08:00] VITALS: BP 101/51
[2018-01-17 08:55] LABS: BASO % 0.5 % (0.0-1.0); EOS # 0.2 10*3/uL (0.0-0.4); EOS % 3.4 % (1.0-4.0); HEMOGLOBIN 10.7 g/dl (12.0-16.0); LYMPH % 30.9 % (27.0-41.0); MEAN CELL VOLUME 95.2 fl (81.0-99.0); MEAN CORPUSCULAR HGB CONC 31.5 g/dl (33.0-37.0); MEAN PLATELET VOLUME 9.4 fl (9.6-12.3); MONO # 0.6 10*3/uL (0.1-1.0); MONO % 9.6 % (3.0-9.0); NEUT # 3.6 10*3/uL (2.3-7.9); NEUT % 55.4 % (47.0-73.0); PLATELET COUNT AUTOMATED 228 10*3/uL (130-400); RED BLOOD COUNT 3.57 10*6/uL (4.10-5.10); RED CELL DISTRI WIDTH 13.7 % (0-14.5); WHITE BLOOD COUNT 6.5 10*3/uL (4.8-10.8)
[2018-01-17 09:17] LABS: ALBUMIN 3.3 gm/dl (3.1-4.5); ALKALINE PHOSPHATASE 74 U/L (45-117); BUN 13 mg/dl (7-24); CHLORIDE 98 mmol/L (98-107); CREATININE 1.06 mg/dL (0.55-1.02); POTASSIUM 3.3 mmol/L (3.5-5.1); SGOT/AST 20 IU/L (3-35); SGPT/ALT 15 U/L (12-78); SODIUM 141 mmol/L (136-145); TOTAL PROTEIN 7.1 gm/dL (6.4-8.2)
[2018-01-17 12:00] VITALS: BP 90/48
[2018-01-17 16:00] VITALS: BP 93/56
[2018-01-17 17:46] VITALS: BP 102/52
[2018-01-17 20:00] VITALS: BP 110/44
[2018-01-18] VITALS: BP 85/51
[2018-01-18 07:41] LABS: BASO % 0.8 % (0.0-1.0); EOS # 0.2 10*3/uL (0.0-0.4); HEMATOCRIT 33.6 % (37.0-47.0); HEMOGLOBIN 10.4 g/dl (12.0-16.0); LYMPH # 1.8 10*3/uL (1.3-4.4); LYMPH % 33.5 % (27.0-41.0); MEAN CELL VOLUME 95.7 fl (81.0-99.0); MEAN CORPUSCULAR HGB 29.6 pg (27.0-31.0); MEAN PLATELET VOLUME 9.7 fl (9.6-12.3); MONO # 0.5 10*3/uL (0.1-1.0); MONO % 9.9 % (3.0-9.0); NEUT # 2.7 10*3/uL (2.3-7.9); NEUT % 51.6 % (47.0-73.0); PLATELET COUNT AUTOMATED 240 10*3/uL (130-400); RED BLOOD COUNT 3.51 10*6/uL (4.10-5.10); WHITE BLOOD COUNT 5.3 10*3/uL (4.8-10.8)
[2018-01-18 07:56] LABS: ALBUMIN 3.2 gm/dl (3.1-4.5); BUN 10 mg/dl (7-24); CHLORIDE 103 mmol/L (98-107); SGOT/AST 18 IU/L (3-35); SGPT/ALT 16 U/L (12-78); SODIUM 144 mmol/L (136-145); TOTAL PROTEIN 6.9 gm/dL (6.4-8.2)
[2018-01-18 07:57] LABS: ALKALINE PHOSPHATASE 76 U/L (45-117)
[2018-01-18 08:00] VITALS: BP 95/42
[2018-01-18 12:00] VITALS: BP 111/42
[2018-01-18 16:00] VITALS: BP 110/52
[2018-01-18 20:00] VITALS: BP 138/64
[2018-01-19 00:37] VITALS: BP 114/42
[2018-01-19 06:56] LABS: BASO % 0.6 % (0.0-1.0); EOS # 0.2 10*3/uL (0.0-0.4); EOS % 4.3 % (1.0-4.0); HEMATOCRIT 32.1 % (37.0-47.0); HEMOGLOBIN 10.1 g/dl (12.0-16.0); LYMPH # 2.2 10*3/uL (1.3-4.4); LYMPH % 42.3 % (27.0-41.0); MEAN CELL VOLUME 96.7 fl (81.0-99.0); MEAN CORPUSCULAR HGB 30.4 pg (27.0-31.0); MEAN CORPUSCULAR HGB CONC 31.5 g/dl (33.0-37.0); MEAN PLATELET VOLUME 9.8 fl (9.6-12.3); MONO # 0.6 10*3/uL (0.1-1.0); MONO % 11.3 % (3.0-9.0); NEUT # 2.2 10*3/uL (2.3-7.9); NEUT % 41.3 % (47.0-73.0); PLATELET COUNT AUTOMATED 246 10*3/uL (130-400); RED BLOOD COUNT 3.32 10*6/uL (4.10-5.10); RED CELL DISTRI WIDTH 14.2 % (0-14.5); WHITE BLOOD COUNT 5.3 10*3/uL (4.8-10.8)
[2018-01-19 07:06] LABS: CHLORIDE 103 mmol/L (98-107); POTASSIUM 3.5 mmol/L (3.5-5.1); SODIUM 144 mmol/L (136-145)
[2018-01-19 07:16] LABS: ALKALINE PHOSPHATASE 73 U/L (45-117); BUN 9 mg/dl (7-24); SGOT/AST 19 IU/L (3-35); SGPT/ALT 14 U/L (12-78); TOTAL PROTEIN 6.8 gm/dL (6.4-8.2)
[2018-01-19 08:00] VITALS: BP 97/42
[2018-01-19 12:00] VITALS: BP 108/78
[2018-01-19 16:00] VITALS: BP 136/73
[2018-01-19] MEDS ORDERED: LEVAQUIN750 M1 PO (16:36)
== END 2018-01-19 18:25 | disposition home or self-care (01) | DRG 314 ==
LOC: ED 14:51 → EDHOLD 17:02 → 4E 17:02
PROVIDERS: Emergency Medicine; Internal Medicine; Registered Nurse
PROC: 05PYX3Z Removal of Infusion Device from Upper Vein, External Approach (ICD-10-PCS; principal; 2018-01-16)
PROC: 5A09357 Assistance with Respiratory Ventilation, Less than 24 Consecutive Hours, Continuous Positive Airway Pressure (ICD-10-PCS; principal; 2018-01-16)
PROC: 5A09357 Assistance with Respiratory Ventilation, Less than 24 Consecutive Hours, Continuous Positive Airway Pressure (ICD-10-PCS; 2018-01-17)
PROC: 5A09357 Assistance with Respiratory Ventilation, Less than 24 Consecutive Hours, Continuous Positive Airway Pressure (ICD-10-PCS; 2018-01-18)
DX: T80.212A Local infection due to central venous catheter, initial encounter (principal); I50.33 Acute on chronic diastolic (congestive) heart failure; E44.0 Moderate protein-calorie malnutrition; E11.22 Type 2 diabetes mellitus with diabetic chronic kidney disease; Z99.81 Dependence on supplemental oxygen; L03.116 Cellulitis of left lower limb; Z68.43 Body mass index [BMI] 50.0-59.9, adult; L03.115 Cellulitis of right lower limb; E66.01 Morbid (severe) obesity due to excess calories; K76.0 Fatty (change of) liver, not elsewhere classified; K21.9 Gastro-esophageal reflux disease without esophagitis; D64.9 Anemia, unspecified; J45.909 Unspecified asthma, uncomplicated; G47.33 Obstructive sleep apnea (adult) (pediatric); F41.9 Anxiety disorder, unspecified; F32.9 Major depressive disorder, single episode, unspecified; Z96.653 Presence of artificial knee joint, bilateral; N18.3 Chronic kidney disease, stage 3 (moderate); T36.1X5A Adverse effect of cephalosporins and other beta-lactam antibiotics, initial encounter; Y84.8 Other medical procedures as the cause of abnormal reaction of the patient, or of later complication, without mention of misadventure at the time of the procedure; Y92.89 Other specified places as the place of occurrence of the external cause; Z88.6 Allergy status to analgesic agent; Z88.1 Allergy status to other antibiotic agents; Z88.8 Allergy status to other drugs, medicaments and biological substances; Z91.048 Other nonmedicinal substance allergy status; Z88.0 Allergy status to penicillin; Z90.710 Acquired absence of both cervix and uterus; Z90.79 Acquired absence of other genital organ(s); Z90.722 Acquired absence of ovaries, bilateral; Z82.49 Family history of ischemic heart disease and other diseases of the circulatory system; Z82.3 Family history of stroke; Z83.3 Family history of diabetes mellitus; Z79.82 Long term (current) use of aspirin; Z79.899 Other long term (current) drug therapy

== ENCOUNTER → 2018-06-10 | Outpatient (CLI) | payer OTHER ==
[~2018-06-10] MED LIST changes: +LEVAQUIN750 M1 PO
[2018-06-10 10:30] LABS: BASO % 0.5 % (0.0-1.0); EOS # 0.2 10*3/uL (0.0-0.4); EOS % 3.2 % (1.0-4.0); HEMATOCRIT 38.7 % (37.0-47.0); HEMOGLOBIN 12.3 g/dl (12.0-16.0); LYMPH # 1.8 10*3/uL (1.3-4.4); LYMPH % 30.3 % (27.0-41.0); MEAN CELL VOLUME 93.3 fl (81.0-99.0); MEAN CORPUSCULAR HGB 29.6 pg (27.0-31.0); MEAN CORPUSCULAR HGB CONC 31.8 g/dl (33.0-37.0); MEAN PLATELET VOLUME 9.7 fl (9.6-12.3); MONO # 0.5 10*3/uL (0.1-1.0); MONO % 7.6 % (3.0-9.0); NEUT # 3.4 10*3/uL (2.3-7.9); NEUT % 58.2 % (47.0-73.0); PLATELET COUNT AUTOMATED 199 10*3/uL (130-400); RED BLOOD COUNT 4.15 10*6/uL (4.10-5.10); RED CELL DISTRI WIDTH 13.1 % (0-14.5); RETICULOCYTE % 1.69 % (0.50-2.50); WHITE BLOOD COUNT 5.9 10*3/uL (4.8-10.8)
[2018-06-10 10:51] LABS: ALBUMIN 3.6 gm/dl (3.1-4.5); ALKALINE PHOSPHATASE 92 U/L (45-117); BUN 14 mg/dl (7-24); CHLORIDE 102 mmol/L (98-107); CREATININE 1.05 mg/dL (0.55-1.02); IRON 85 ug/dL (50-170); PHOSPHOROUS 3.7 mg/dL (2.5-4.9); POTASSIUM 3.8 mmol/L (3.5-5.1); SGOT/AST 22 IU/L (3-35); SGPT/ALT 22 U/L (12-78); SODIUM 141 mmol/L (136-145); TOTAL IRON BINDING CAPACITY 310 ug/dl (250-450); TOTAL PROTEIN 7.6 gm/dL (6.4-8.2)
[2018-06-10 10:52] LABS: BILIRUBIN, DIRECT 0.2 mg/dL (0.0-0.2)
[2018-06-10 11:24] LABS: FERRITIN 29.8 ng/mL (10.0-291.0); PTH INTACT 161.1 pg/mL (18.5-88.0); VITAMIN D, 25-HYDROXY 30.6 ng/mL (30-100)
== END | disposition home or self-care (01) ==
LOC: LAB 03:23
PROVIDERS: Internal Medicine; Internal Medicine Nephrology
DX: I12.9 Hypertensive chronic kidney disease with stage 1 through stage 4 chronic kidney disease, or unspecified chronic kidney disease (principal); N18.3 Chronic kidney disease, stage 3 (moderate); Z79.899 Other long term (current) drug therapy; E55.9 Vitamin D deficiency, unspecified; D64.9 Anemia, unspecified; E66.01 Morbid (severe) obesity due to excess calories

== ENCOUNTER 2018-08-15 14:37 | Emergency (ER) | payer OTHER ==
[~2018-08-15] VITALS: Ht 170.1 cm; Wt 162.4 kg
[2018-08-15 14:40] VITALS: BP 120/64
[2018-08-15] MEDS ORDERED: CLINDAMYCIN HC300 MG PO (15:05)
== END 2018-08-15 15:11 | disposition home or self-care (01) ==
LOC: ED 14:37
DX: L03.115 Cellulitis of right lower limb (principal); J44.9 Chronic obstructive pulmonary disease, unspecified; E11.9 Type 2 diabetes mellitus without complications; Z88.0 Allergy status to penicillin; Z88.6 Allergy status to analgesic agent; Z88.1 Allergy status to other antibiotic agents; Z88.8 Allergy status to other drugs, medicaments and biological substances; Z79.899 Other long term (current) drug therapy; Z79.82 Long term (current) use of aspirin

== ENCOUNTER → 2018-11-03 | Outpatient (CLI) | payer OTHER ==
[2018-11-03 10:21] LABS: BASO % 0.6 % (0.0-1.0); EOS # 0.2 10*3/uL (0.0-0.4); EOS % 3.1 % (1.0-4.0); HEMATOCRIT 38.7 % (37.0-47.0); HEMOGLOBIN 12.6 g/dl (12.0-16.0); LYMPH # 2.4 10*3/uL (1.3-4.4); LYMPH % 37.8 % (27.0-41.0); MEAN CELL VOLUME 95.3 fl (81.0-99.0); MEAN CORPUSCULAR HGB CONC 32.6 g/dl (33.0-37.0); MEAN PLATELET VOLUME 9.4 fl (9.6-12.3); MONO # 0.5 10*3/uL (0.1-1.0); MONO % 7.2 % (3.0-9.0); NEUT # 3.2 10*3/uL (2.3-7.9); NEUT % 51.1 % (47.0-73.0); PLATELET COUNT AUTOMATED 216 10*3/uL (130-400); RED BLOOD COUNT 4.06 10*6/uL (4.10-5.10); RED CELL DISTRI WIDTH 12.9 % (0-14.5); WHITE BLOOD COUNT 6.2 10*3/uL (4.8-10.8)
[2018-11-03 10:51] LABS: ALBUMIN 3.5 gm/dl (3.1-4.5); BILIRUBIN, DIRECT 0.1 mg/dL (0.0-0.2); TOTAL PROTEIN 7.2 gm/dL (6.4-8.2)
[2018-11-04 05:06] LABS: RHEUMATOID ARTHRITIS FACTOR <10.0 IU/mL (0.0-13.9)
[2018-11-04 09:07] LABS: CREATININE,URINE 21.7 mg/dL (Not Estab.); MICRO ALBUMIN/CRE RATIO <13.8 (0.0-30.0)
[2018-11-04 17:09] LABS: AMPHETAMINE SCREEN, URINE Negative ng/mL (Cutoff=1000); BARBITURATES SCREEN, URINE Negative ng/mL (Cutoff=200); BENZODIAZEPINES SCREEN URINE Negative ng/mL (Cutoff=200); BUPRENORPHINE SCREEN URINE Negative ng/mL (Cutoff=10); CANNABINOID SCREEN, URINE Negative ng/mL (Cutoff=20); CREATININE, UR 25.1 mg/dL (20.0-300.0); METHADONE SCREEN, URINE Negative ng/mL (Cutoff=300); OPIATE SCREEN, URINE Positive ng/mL (Cutoff=300); OXYCODONE SCREEN URINE Negative ng/mL (Cutoff=100); PH URINE 7.2 (4.5-8.9); PROPOXYPHENE SCREEN, URINE Negative ng/mL (Cutoff=300)
== END | disposition home or self-care (01) ==
LOC: LAB 09:22
PROVIDERS: Internal Medicine
DX: E11.65 Type 2 diabetes mellitus with hyperglycemia (principal); M48.062 Spinal stenosis, lumbar region with neurogenic claudication; M79.12 Myalgia of auxiliary muscles, head and neck; M25.562 Pain in left knee; G89.4 Chronic pain syndrome; G62.9 Polyneuropathy, unspecified

== ENCOUNTER → 2018-11-28 | Outpatient (CLI) | payer OTHER ==
[2018-11-28 15:56] LABS: ALBUMIN 3.3 gm/dl (3.1-4.5); CREATININE 1.29 mg/dL (0.55-1.02); PHOSPHOROUS 3.4 mg/dL (2.5-4.9); POTASSIUM 3.7 mmol/L (3.5-5.1)
== END | disposition home or self-care (01) ==
LOC: LAB 00:14
PROVIDERS: Internal Medicine
DX: M25.562 Pain in left knee (principal); E11.65 Type 2 diabetes mellitus with hyperglycemia; I50.9 Heart failure, unspecified

== ENCOUNTER 2019-01-22 19:11 | Emergency (ER) | payer OTHER ==
[~2019-01-22] VITALS: Ht 170.1 cm; Wt 160.6 kg
--- NOTE | ~2019-01-22 | EKG ---
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
[2019-01-22 19:19] VITALS: BP 123/64
[2019-01-22 20:13] LABS: BASO % 0.4 % (0.0-1.0); EOS # 0.2 10*3/uL (0.0-0.4); EOS % 3.5 % (1.0-4.0); HEMATOCRIT 36.7 % (37.0-47.0); HEMOGLOBIN 11.9 g/dl (12.0-16.0); LYMPH # 2.3 10*3/uL (1.3-4.4); LYMPH % 32.8 % (27.0-41.0); MEAN CELL VOLUME 95.1 fl (81.0-99.0); MEAN CORPUSCULAR HGB 30.8 pg (27.0-31.0); MEAN CORPUSCULAR HGB CONC 32.4 g/dl (33.0-37.0); MEAN PLATELET VOLUME 9.4 fl (9.6-12.3); MONO # 0.5 10*3/uL (0.1-1.0); MONO % 7.1 % (3.0-9.0); NEUT # 3.8 10*3/uL (2.3-7.9); NEUT % 55.9 % (47.0-73.0); PLATELET COUNT AUTOMATED 178 10*3/uL (130-400); RED BLOOD COUNT 3.86 10*6/uL (4.10-5.10); RED CELL DISTRI WIDTH 12.8 % (0-14.5); WHITE BLOOD COUNT 6.9 10*3/uL (4.8-10.8)
[2019-01-22 20:29] LABS: ALBUMIN 3.2 gm/dl (3.1-4.5); ALKALINE PHOSPHATASE 90 U/L (45-117); BUN 13 mg/dl (7-24); CHLORIDE 102 mmol/L (98-107); CREATININE 1.07 mg/dL (0.55-1.02); LIPASE 107 U/L (73-393); POTASSIUM 3.8 mmol/L (3.5-5.1); SGOT/AST 17 IU/L (3-35); SGPT/ALT 28 U/L (12-78); SODIUM 142 mmol/L (136-145); TOTAL PROTEIN 6.9 gm/dL (6.4-8.2)
[2019-01-22 20:31] LABS: TROPONIN I < 0.015 ng/ml (<0.045)
[2019-01-22 20:39] LABS: ACT PARTIAL THROMBO TIME 25.4 SECONDS (20.0-32.1); INTERNATIONAL NORM RATIO 0.9 (2.0-3.5)
[2019-01-22] MEDS ORDERED: KEFLEX500 M1 PO (22:56)
== END 2019-01-22 23:30 | disposition home or self-care (01) ==
LOC: ED 19:11
PROVIDERS: Physician Assistant
DX: L03.116 Cellulitis of left lower limb (principal); L03.115 Cellulitis of right lower limb; M25.511 Pain in right shoulder; J44.9 Chronic obstructive pulmonary disease, unspecified; I50.9 Heart failure, unspecified; Z88.8 Allergy status to other drugs, medicaments and biological substances; Z88.0 Allergy status to penicillin; Z88.6 Allergy status to analgesic agent; Z88.1 Allergy status to other antibiotic agents; Z79.2 Long term (current) use of antibiotics; Z79.899 Other long term (current) drug therapy; Z79.82 Long term (current) use of aspirin; Z90.710 Acquired absence of both cervix and uterus

== ENCOUNTER 2019-03-14 14:25 | Emergency (ER) | payer OTHER ==
[~2019-03-14] VITALS: Ht 170.1 cm; Wt 147.0 kg
== END 2019-03-14 14:59 | disposition home or self-care (01) ==
LOC: ED 14:25
DX: H11.31 Conjunctival hemorrhage, right eye (principal); I50.9 Heart failure, unspecified; K21.9 Gastro-esophageal reflux disease without esophagitis; Z88.8 Allergy status to other drugs, medicaments and biological substances; Z88.0 Allergy status to penicillin; Z88.1 Allergy status to other antibiotic agents; Z88.6 Allergy status to analgesic agent; Z79.899 Other long term (current) drug therapy; Z79.2 Long term (current) use of antibiotics; Z79.82 Long term (current) use of aspirin; Z90.710 Acquired absence of both cervix and uterus

== ENCOUNTER → 2019-06-09 | Outpatient (CLI) | payer OTHER ==
[2019-06-09 09:42] LABS: BASO # 0.1 10*3/uL (0.0-0.1); BASO % 0.7 % (0.0-1.0); EOS # 0.2 10*3/uL (0.0-0.4); HEMATOCRIT 42.3 % (37.0-47.0); HEMOGLOBIN 13.3 g/dl (12.0-16.0); LYMPH # 3.1 10*3/uL (1.3-4.4); LYMPH % 41.9 % (27.0-41.0); MEAN CELL VOLUME 90.4 fl (81.0-99.0); MEAN CORPUSCULAR HGB 28.4 pg (27.0-31.0); MEAN CORPUSCULAR HGB CONC 31.4 g/dl (33.0-37.0); MEAN PLATELET VOLUME 9.9 fl (9.6-12.3); MONO # 0.5 10*3/uL (0.1-1.0); MONO % 6.9 % (3.0-9.0); NEUT # 3.6 10*3/uL (2.3-7.9); NEUT % 48.2 % (47.0-73.0); PLATELET COUNT AUTOMATED 253 10*3/uL (130-400); RED BLOOD COUNT 4.68 10*6/uL (4.10-5.10); RED CELL DISTRI WIDTH 14.5 % (0-14.5); WHITE BLOOD COUNT 7.4 10*3/uL (4.8-10.8)
[2019-06-09 09:55] LABS: ALBUMIN 3.8 gm/dl (3.1-4.5); CREATININE 1.2 mg/dL (0.55-1.02); PHOSPHOROUS 4.1 mg/dL (2.5-4.9); POTASSIUM 3.7 mmol/L (3.5-5.1)
[2019-06-09 09:56] LABS: CREATININE 1.25 mg/dL (0.55-1.02); POTASSIUM 3.9 mmol/L (3.5-5.1)
[2019-06-09 10:36] LABS: PTH INTACT 112.4 pg/mL (18.5-88.0); VITAMIN D, 25-HYDROXY 40.5 ng/mL (30-100)
== END | disposition home or self-care (01) ==
LOC: LAB 00:15
PROVIDERS: Internal Medicine; Internal Medicine Nephrology
DX: I12.9 Hypertensive chronic kidney disease with stage 1 through stage 4 chronic kidney disease, or unspecified chronic kidney disease (principal); N18.3 Chronic kidney disease, stage 3 (moderate); E55.9 Vitamin D deficiency, unspecified; E66.01 Morbid (severe) obesity due to excess calories; G47.30 Sleep apnea, unspecified; D50.9 Iron deficiency anemia, unspecified

== ENCOUNTER → 2019-08-25 | Outpatient (CLI) | payer OTHER ==
[2019-08-26 16:07] LABS: BARBITURATE, URINE Negative ng/mL (Cutoff=200); CANNABINOID, URINE Negative ng/mL (Cutoff=20); CREATININE, UR 83.8 mg/dL (20.0-300.0); PH URINE 5.3 (4.5-8.9)
[2019-08-30 09:10] LABS: CODEINE, URINE Negative (Cutoff=100)
== END | disposition home or self-care (01) ==
LOC: LAB 12:36
PROVIDERS: Internal Medicine
DX: Z51.81 Encounter for therapeutic drug level monitoring (principal); M51.37 Other intervertebral disc degeneration, lumbosacral region

== ENCOUNTER → 2019-10-02 | Outpatient (CLI) | payer OTHER ==
[2019-10-02 14:34] LABS: ALBUMIN 3.8 gm/dl (3.1-4.5); CREATININE 1.43 mg/dL (0.55-1.02); PHOSPHOROUS 3.6 mg/dL (2.5-4.9); POTASSIUM 4.4 mmol/L (3.5-5.1)
== END | disposition home or self-care (01) ==
LOC: LAB 10-01 00:58
PROVIDERS: Internal Medicine Nephrology
DX: I12.9 Hypertensive chronic kidney disease with stage 1 through stage 4 chronic kidney disease, or unspecified chronic kidney disease (principal); N18.3 Chronic kidney disease, stage 3 (moderate); E66.01 Morbid (severe) obesity due to excess calories; E55.9 Vitamin D deficiency, unspecified; G47.30 Sleep apnea, unspecified; D64.9 Anemia, unspecified

== ENCOUNTER → 2019-11-15 | Outpatient (CLI) | payer OTHER ==
[~2019-11-15] MED LIST changes: +ALDACTONE25 M1 PO; +DECARA25000 UNIT PO; -DESYREL DIVIDO150 MG PO; +ELIQUIS5 M1 PO; +FEROSUL325 MG PO; +Ipratropium Brom3 ML INH; +LIPITOR20 MG PO; +MAGOX 400400 MG PO; +METOPROLOL25 MG PO; +OMNICEF300 MG PO; +SENNA8.6 MG PO; +TRAZODONE50 MG PO; -ZYRTEC10 M1 PO; +ZYRTEC10 M3 PO
[2019-11-15 09:05] LABS: BASO % 0.3 % (0.0-1.0); EOS # 0.2 10*3/uL (0.0-0.4); EOS % 2.8 % (1.0-4.0); HEMATOCRIT 40.7 % (37.0-47.0); LYMPH # 2.8 10*3/uL (1.3-4.4); LYMPH % 43.2 % (27.0-41.0); MEAN CELL VOLUME 95.5 fl (81.0-99.0); MEAN CORPUSCULAR HGB 30.5 pg (27.0-31.0); MEAN CORPUSCULAR HGB CONC 31.9 g/dl (33.0-37.0); MEAN PLATELET VOLUME 10.1 fl (9.6-12.3); MONO # 0.6 10*3/uL (0.1-1.0); MONO % 9.3 % (3.0-9.0); NEUT # 2.8 10*3/uL (2.3-7.9); NEUT % 44.1 % (47.0-73.0); PLATELET COUNT AUTOMATED 205 10*3/uL (130-400); RED BLOOD COUNT 4.26 10*6/uL (4.10-5.10); RED CELL DISTRI WIDTH 12.7 % (0-14.5); WHITE BLOOD COUNT 6.4 10*3/uL (4.8-10.8)
[2019-11-15 09:39] LABS: ALBUMIN 3.6 gm/dl (3.1-4.5); CREATININE 1.21 mg/dL (0.55-1.02)
[2019-11-15 09:43] LABS: BILIRUBIN, DIRECT 0.2 mg/dL (0.0-0.2); PHOSPHOROUS 3.1 mg/dL (2.5-4.9); TOTAL PROTEIN 7.2 gm/dL (6.4-8.2)
== END | disposition home or self-care (01) ==
LOC: LAB 00:09
PROVIDERS: Internal Medicine
DX: I25.10 Atherosclerotic heart disease of native coronary artery without angina pectoris (principal); D50.9 Iron deficiency anemia, unspecified; Q21.1 Atrial septal defect; I46.9 Cardiac arrest, cause unspecified; I51.89 Other ill-defined heart diseases; I21.19 ST elevation (STEMI) myocardial infarction involving other coronary artery of inferior wall

== ENCOUNTER 2019-11-16 15:09 | Observation (INO) | payer OTHER ==
[~2019-11-16] VITALS: Ht 171.4 cm; Wt 164.2 kg
[~2019-11-16 15:09] MED LIST changes: -ALDACTONE25 M1 PO; -DECARA25000 UNIT PO; -ELIQUIS5 M1 PO; -FEROSUL325 MG PO; -LIPITOR20 MG PO; -MAGOX 400400 MG PO; -METOPROLOL25 MG PO; -OMNICEF300 MG PO; -SENNA8.6 MG PO
[2019-11-16 15:20] VITALS: BP 108/48
[2019-11-16 15:52] LABS: BASO % 0.4 % (0.0-1.0); EOS # 0.1 10*3/uL (0.0-0.4); EOS % 1.9 % (1.0-4.0); HEMATOCRIT 41.4 % (37.0-47.0); HEMOGLOBIN 13.3 g/dl (12.0-16.0); LYMPH # 2.4 10*3/uL (1.3-4.4); LYMPH % 33.2 % (27.0-41.0); MEAN CORPUSCULAR HGB 30.5 pg (27.0-31.0); MEAN CORPUSCULAR HGB CONC 32.1 g/dl (33.0-37.0); MEAN PLATELET VOLUME 9.8 fl (9.6-12.3); MONO # 0.7 10*3/uL (0.1-1.0); MONO % 9.4 % (3.0-9.0); NEUT % 54.7 % (47.0-73.0); PLATELET COUNT AUTOMATED 216 10*3/uL (130-400); RED BLOOD COUNT 4.36 10*6/uL (4.10-5.10); RED CELL DISTRI WIDTH 12.6 % (0-14.5); WHITE BLOOD COUNT 7.3 10*3/uL (4.8-10.8)
[2019-11-16 16:11] LABS: ACT PARTIAL THROMBO TIME 29.2 SECONDS (20.0-32.1); ALBUMIN 3.7 gm/dl (3.1-4.5); ALKALINE PHOSPHATASE 98 U/L (45-117); BUN 17 mg/dl (7-24); CHLORIDE 105 mmol/L (98-107); CREATININE 1.22 mg/dL (0.55-1.02); INTERNATIONAL NORM RATIO 0.9 (2.0-3.5); POTASSIUM 4.1 mmol/L (3.5-5.1); SGOT/AST 17 IU/L (3-35); SGPT/ALT 22 U/L (12-78); SODIUM 139 mmol/L (136-145); TOTAL PROTEIN 7.6 gm/dL (6.4-8.2)
[2019-11-16 16:15] LABS: TROPONIN I < 0.015 ng/ml (<0.045)
[2019-11-16 19:25] VITALS: BP 103/50
[2019-11-16 20:00] VITALS: BP 124/49
[2019-11-16] MEDS ORDERED: BUMETANIDE1 MG PO (21:58)
[2019-11-16] MEDS ORDERED: DECARA25000 UNIT PO (22:06)
[2019-11-16] MEDS ORDERED: METOPROLOL25 MG PO (22:10)
[2019-11-16] MEDS ORDERED: SENNA8.6 MG PO (22:12)
[2019-11-16] MEDS ORDERED: LIPITOR20 MG PO (22:12)
[2019-11-16] MEDS ORDERED: ELIQUIS5 M1 PO (22:14)
[2019-11-16] MEDS ORDERED: FEROSUL325 MG PO (22:14)
[2019-11-16] MEDS ORDERED: ALDACTONE25 M1 PO (22:15)
[2019-11-16] MEDS ORDERED: OMNICEF300 MG PO (22:16)
[2019-11-16] MEDS ORDERED: MAGOX 400400 MG PO (22:34)
[2019-11-17] VITALS: BP 131/63
[2019-11-17 06:15] LABS: BASO % 0.4 % (0.0-1.0); EOS # 0.1 10*3/uL (0.0-0.4); EOS % 1.8 % (1.0-4.0); HEMATOCRIT 39.8 % (37.0-47.0); HEMOGLOBIN 12.6 g/dl (12.0-16.0); LYMPH # 2.6 10*3/uL (1.3-4.4); LYMPH % 37.7 % (27.0-41.0); MEAN CELL VOLUME 94.8 fl (81.0-99.0); MEAN CORPUSCULAR HGB CONC 31.7 g/dl (33.0-37.0); MEAN PLATELET VOLUME 10.2 fl (9.6-12.3); MONO # 0.6 10*3/uL (0.1-1.0); MONO % 8.5 % (3.0-9.0); NEUT # 3.5 10*3/uL (2.3-7.9); NEUT % 51.3 % (47.0-73.0); PLATELET COUNT AUTOMATED 209 10*3/uL (130-400); RED CELL DISTRI WIDTH 12.6 % (0-14.5); WHITE BLOOD COUNT 6.9 10*3/uL (4.8-10.8)
[2019-11-17 06:27] LABS: CREATININE 1.13 mg/dL (0.55-1.02); POTASSIUM 3.8 mmol/L (3.5-5.1)
[2019-11-17 06:32] LABS: PHOSPHOROUS 4.3 mg/dL (2.5-4.9)
[2019-11-17 06:39] LABS: THYROID STIM HORMONE (HS) 0.831 uIU/ml (0.358-4.75)
[2019-11-17 12:00] VITALS: BP 123/54
== END 2019-11-17 15:27 | disposition home or self-care (01) ==
LOC: ED 15:09 → 4E 18:46 → EDHOLD 18:46 → 4E 18:46 → EDHOLD 18:55 → 4E 20:02
PROVIDERS: Emergency Medicine; Internal Medicine; ADMIT Family Medicine
DX: R07.89 Other chest pain (principal); I13.0 Hypertensive heart and chronic kidney disease with heart failure and stage 1 through stage 4 chronic kidney disease, or unspecified chronic kidney disease; I50.33 Acute on chronic diastolic (congestive) heart failure; I46.9 Cardiac arrest, cause unspecified; I21.3 ST elevation (STEMI) myocardial infarction of unspecified site; I25.10 Atherosclerotic heart disease of native coronary artery without angina pectoris; E83.41 Hypermagnesemia; R60.9 Edema, unspecified; E11.22 Type 2 diabetes mellitus with diabetic chronic kidney disease; J44.9 Chronic obstructive pulmonary disease, unspecified; N18.3 Chronic kidney disease, stage 3 (moderate); F32.9 Major depressive disorder, single episode, unspecified; F41.9 Anxiety disorder, unspecified; G47.33 Obstructive sleep apnea (adult) (pediatric)

== ENCOUNTER → 2020-01-24 | Outpatient (CLI) | payer OTHER ==
[~2020-01-24] MED LIST changes: +ALDACTONE25 M1 PO; +DECARA25000 UNIT PO; +ELIQUIS5 M1 PO; +FEROSUL325 MG PO; +LIPITOR20 MG PO; +MAGOX 400400 MG PO; +METOPROLOL25 MG PO; +OMNICEF300 MG PO; +SENNA8.6 MG PO
[2020-01-24 11:51] LABS: BASO % 0.7 % (0.0-1.0); EOS # 0.2 10*3/uL (0.0-0.4); EOS % 3.5 % (1.0-4.0); HEMATOCRIT 41.8 % (37.0-47.0); LYMPH # 2.4 10*3/uL (1.3-4.4); LYMPH % 42.7 % (27.0-41.0); MEAN CORPUSCULAR HGB 30.2 pg (27.0-31.0); MEAN CORPUSCULAR HGB CONC 31.8 g/dl (33.0-37.0); MEAN PLATELET VOLUME 9.4 fl (9.6-12.3); MONO # 0.4 10*3/uL (0.1-1.0); MONO % 7.7 % (3.0-9.0); NEUT # 2.6 10*3/uL (2.3-7.9); NEUT % 45.2 % (47.0-73.0); PLATELET COUNT AUTOMATED 230 10*3/uL (130-400); RED CELL DISTRI WIDTH 12.7 % (0-14.5); WHITE BLOOD COUNT 5.7 10*3/uL (4.8-10.8)
[2020-01-24 12:01] LABS: CLARITY CLOUDY (CLEAR); COLOR YELLOW (YELLOW); GLUCOSE NEGATIVE (NEGATIVE)
[2020-01-24 12:02] LABS: BILIRUBIN 1+ (NEGATIVE); BLOOD TRACE-INTACT (NEGATIVE); KETONE NEGATIVE (NEGATIVE); SPECIFIC GRAVITY 1.015 (1.005-1.030)
[2020-01-24 12:03] LABS: LEUKO ESTERASE TRACE (NEGATIVE); NITRITE NEGATIVE (NEGATIVE); UROBILINOGEN 0.2 E.U./dl (0.2-1.0)
[2020-01-24 12:13] LABS: BACTERIA 1+; MUCOUS 1+
[2020-01-24 12:27] LABS: ALBUMIN 3.6 gm/dl (3.1-4.5); CREATININE 1.22 mg/dL (0.55-1.02); POTASSIUM 4.1 mmol/L (3.5-5.1)
== END | disposition home or self-care (01) ==
LOC: LAB 00:24
PROVIDERS: Internal Medicine
DX: I50.9 Heart failure, unspecified (principal); N18.3 Chronic kidney disease, stage 3 (moderate)

== ENCOUNTER 2020-01-31 14:42 | Emergency (ER) | payer OTHER ==
[~2020-01-31] VITALS: Ht 170.1 cm; Wt 165.1 kg
[2020-01-31 14:48] VITALS: BP 140/77
== END 2020-01-31 17:08 | disposition home or self-care (01) ==
LOC: ED 14:42
DX: S63.591A Other specified sprain of right wrist, initial encounter (principal); S60.011A Contusion of right thumb without damage to nail, initial encounter; Z95.5 Presence of coronary angioplasty implant and graft; Z96.653 Presence of artificial knee joint, bilateral; Z90.89 Acquired absence of other organs; Z90.710 Acquired absence of both cervix and uterus; Z79.899 Other long term (current) drug therapy; Z79.01 Long term (current) use of anticoagulants; Z88.0 Allergy status to penicillin; W01.0XXA Fall on same level from slipping, tripping and stumbling without subsequent striking against object, initial encounter; Y93.89 Activity, other specified; Y92.89 Other specified places as the place of occurrence of the external cause; Y99.9 Unspecified external cause status

== ENCOUNTER → 2020-02-27 | Outpatient (CLI) | payer OTHER ==
[2020-02-27 15:45] LABS: CREATININE 1.18 mg/dL (0.55-1.02)
[2020-02-27 16:45] LABS: PTH INTACT 162.7 pg/mL (18.5-88.0); VITAMIN D, 25-HYDROXY 63.5 ng/mL (30-100)
== END | disposition home or self-care (01) ==
LOC: LAB 14:03
PROVIDERS: Internal Medicine Nephrology
DX: I12.9 Hypertensive chronic kidney disease with stage 1 through stage 4 chronic kidney disease, or unspecified chronic kidney disease (principal); N18.3 Chronic kidney disease, stage 3 (moderate); E55.9 Vitamin D deficiency, unspecified; D64.9 Anemia, unspecified; E66.01 Morbid (severe) obesity due to excess calories; G47.30 Sleep apnea, unspecified

== ENCOUNTER → 2020-03-06 | Outpatient (CLI) | payer OTHER ==
[2020-03-06 15:11] LABS: BASO # 0.1 10*3/uL (0.0-0.1); BASO % 0.7 % (0.0-1.0); EOS # 0.2 10*3/uL (0.0-0.4); EOS % 2.4 % (1.0-4.0); HEMATOCRIT 40.8 % (37.0-47.0); LYMPH # 2.8 10*3/uL (1.3-4.4); LYMPH % 33.9 % (27.0-41.0); MEAN CORPUSCULAR HGB 30.4 pg (27.0-31.0); MEAN CORPUSCULAR HGB CONC 32.4 g/dl (33.0-37.0); MEAN PLATELET VOLUME 9.5 fl (9.6-12.3); MONO # 0.7 10*3/uL (0.1-1.0); MONO % 8.5 % (3.0-9.0); NEUT # 4.5 10*3/uL (2.3-7.9); NEUT % 53.5 % (47.0-73.0); PLATELET COUNT AUTOMATED 210 10*3/uL (130-400); RED BLOOD COUNT 4.34 10*6/uL (4.10-5.10); RED CELL DISTRI WIDTH 12.5 % (0-14.5); WHITE BLOOD COUNT 8.4 10*3/uL (4.8-10.8)
== END | disposition home or self-care (01) ==
LOC: LAB 14:48
PROVIDERS: Internal Medicine
DX: R31.9 Hematuria, unspecified (principal); Z79.01 Long term (current) use of anticoagulants

== ENCOUNTER → 2020-04-15 | Outpatient (CLI) | payer OTHER ==
[2020-04-15 12:39] LABS: URINE AMPHETAMINES < 1000 (1000ng/ml); URINE BARBITURATES < 200 (200ng/ml); URINE BENZODIAZEPINES < 200 (200ng/ml); URINE CANNABINOIDS (THC) < 50 (50ng/ml); URINE COCAINE < 300 (300ng/ml); URINE METHADONE < 300 (300ng/ml); URINE OPIATES > 300 (300ng/ml)
[2020-04-15 12:49] LABS: URINE PHENCYCLIDINE < 25 (25ng/ml)
== END | disposition home or self-care (01) ==
LOC: LAB 00:34
PROVIDERS: Internal Medicine
DX: F11.90 Opioid use, unspecified, uncomplicated (principal); M51.37 Other intervertebral disc degeneration, lumbosacral region

== ENCOUNTER 2020-05-26 15:03 | Emergency (ER) | payer OTHER ==
[~2020-05-26] VITALS: Ht 170.1 cm; Wt 157.9 kg
== END 2020-05-26 16:09 | disposition home or self-care (01) ==
LOC: ED 15:03
DX: S61.210A Laceration without foreign body of right index finger without damage to nail, initial encounter (principal); Z88.8 Allergy status to other drugs, medicaments and biological substances; Z88.0 Allergy status to penicillin; Z79.899 Other long term (current) drug therapy; Z79.2 Long term (current) use of antibiotics; X58.XXXA Exposure to other specified factors, initial encounter; Y93.89 Activity, other specified; Y92.89 Other specified places as the place of occurrence of the external cause; Y99.8 Other external cause status

== ENCOUNTER → 2020-09-12 | Outpatient (CLI) | payer OTHER ==
[2020-09-12 09:43] LABS: BASO % 0.5 % (0.0-1.0); EOS # 0.2 10*3/uL (0.0-0.4); EOS % 3.5 % (1.0-4.0); HEMATOCRIT 39.8 % (37.0-47.0); LYMPH # 2.4 10*3/uL (1.3-4.4); LYMPH % 40.6 % (27.0-41.0); MEAN CELL VOLUME 93.9 fl (81.0-99.0); MEAN CORPUSCULAR HGB 29.5 pg (27.0-31.0); MEAN CORPUSCULAR HGB CONC 31.4 g/dl (33.0-37.0); MEAN PLATELET VOLUME 9.5 fl (9.6-12.3); MONO # 0.4 10*3/uL (0.1-1.0); MONO % 7.1 % (3.0-9.0); NEUT # 2.9 10*3/uL (2.3-7.9); NEUT % 48.1 % (47.0-73.0); PLATELET COUNT AUTOMATED 233 10*3/uL (130-400); RED BLOOD COUNT 4.24 10*6/uL (4.10-5.10); RED CELL DISTRI WIDTH 12.6 % (0-14.5); WHITE BLOOD COUNT 5.9 10*3/uL (4.8-10.8)
[2020-09-12 10:05] LABS: URIC ACID 6.6 mg/dL (2.6-6.0)
[2020-09-12 10:09] LABS: ALBUMIN 3.5 gm/dl (3.1-4.5); BILIRUBIN, DIRECT 0.3 mg/dL (0.0-0.2); CREATININE 1.14 mg/dL (0.55-1.02); POTASSIUM 4.2 mmol/L (3.5-5.1); TOTAL PROTEIN 7.1 gm/dL (6.4-8.2)
== END | disposition home or self-care (01) ==
LOC: LAB 00:01
PROVIDERS: Internal Medicine; ATTEND Internal Medicine Nephrology
DX: I12.9 Hypertensive chronic kidney disease with stage 1 through stage 4 chronic kidney disease, or unspecified chronic kidney disease (principal); N18.30 Chronic kidney disease, stage 3 unspecified; E78.2 Mixed hyperlipidemia; E11.22 Type 2 diabetes mellitus with diabetic chronic kidney disease

== ENCOUNTER 2021-01-09 11:13 | Inpatient (IN) | payer OTHER ==
[~2021-01-09] VITALS: Wt 156.6 kg
[2021-01-09 11:16] VITALS: BP 107/46
[2021-01-09 16:19] LABS: BASO % 0.4 % (0.0-1.0); EOS # 0.2 10*3/uL (0.0-0.4); EOS % 2.3 % (1.0-4.0); HEMATOCRIT 38.1 % (37.0-47.0); LYMPH # 2.1 10*3/uL (1.3-4.4); LYMPH % 28.2 % (27.0-41.0); MEAN CORPUSCULAR HGB CONC 32.5 g/dl (33.0-37.0); MEAN PLATELET VOLUME 9.5 fl (9.6-12.3); MONO # 0.5 10*3/uL (0.1-1.0); MONO % 7.1 % (3.0-9.0); NEUT # 4.6 10*3/uL (2.3-7.9); NEUT % 61.9 % (47.0-73.0); PLATELET COUNT AUTOMATED 210 10*3/uL (130-400); RED BLOOD COUNT 4.14 10*6/uL (4.10-5.10); RED CELL DISTRI WIDTH 12.9 % (0-14.5); WHITE BLOOD COUNT 7.5 10*3/uL (4.8-10.8)
[2021-01-09 16:33] LABS: ALBUMIN 3.6 gm/dl (3.1-4.5); CREATININE 1.23 mg/dL (0.55-1.02); POTASSIUM 4.4 mmol/L (3.5-5.1); TOTAL PROTEIN 7.2 gm/dL (6.4-8.2)
[2021-01-09 18:07] VITALS: BP 94/42
[2021-01-09 20:25] VITALS: BP 109/49
[2021-01-10] VITALS: BP 116/50
[2021-01-10 06:50] LABS: BASO # 0.1 10*3/uL (0.0-0.1); BASO % 0.9 % (0.0-1.0); EOS # 0.2 10*3/uL (0.0-0.4); EOS % 3.1 % (1.0-4.0); HEMATOCRIT 37.8 % (37.0-47.0); LYMPH # 2.6 10*3/uL (1.3-4.4); LYMPH % 44.2 % (27.0-41.0); MEAN CELL VOLUME 93.3 fl (81.0-99.0); MEAN CORPUSCULAR HGB 29.6 pg (27.0-31.0); MEAN CORPUSCULAR HGB CONC 31.7 g/dl (33.0-37.0); MEAN PLATELET VOLUME 9.9 fl (9.6-12.3); MONO # 0.4 10*3/uL (0.1-1.0); MONO % 7.3 % (3.0-9.0); NEUT # 2.6 10*3/uL (2.3-7.9); NEUT % 44.3 % (47.0-73.0); PLATELET COUNT AUTOMATED 205 10*3/uL (130-400); RED BLOOD COUNT 4.05 10*6/uL (4.10-5.10); RED CELL DISTRI WIDTH 12.9 % (0-14.5); WHITE BLOOD COUNT 5.8 10*3/uL (4.8-10.8)
[2021-01-10 07:03] LABS: ACT PARTIAL THROMBO TIME 39.5 SECONDS (20.0-32.1)
[2021-01-10 07:10] LABS: CHLORIDE 104 mmol/L (98-107); POTASSIUM 3.9 mmol/L (3.5-5.1); SGOT/AST 18 IU/L (3-35); SODIUM 141 mmol/L (136-145)
[2021-01-10 07:21] LABS: ALBUMIN 3.4 gm/dl (3.1-4.5); ALKALINE PHOSPHATASE 82 U/L (45-117); BUN 16 mg/dl (7-24); CHOLESTEROL 114 mg/dL (<200); CREATININE 1.11 mg/dL (0.55-1.02); FREE T4 0.95 ng/dl (0.76-1.46); LDL CHOLESTEROL 46 mg/dL (9-159); SGPT/ALT 18 U/L (12-78); TOTAL PROTEIN 6.5 gm/dL (6.4-8.2); TRIGLYCERIDES 104 mg/dl (<150)
[2021-01-10 07:24] LABS: VITAMIN D, 25-HYDROXY 64.5 ng/mL (30-100)
[2021-01-10 08:00] VITALS: BP 118/48
[2021-01-10 12:00] VITALS: BP 110/55
[2021-01-10 14:37] LABS: BILIRUBIN Negative (Negative); BLOOD Negative (Negative); CLARITY Clear (Clear); COLOR Dark Yellow (Yellow); GLUCOSE Negative (Negative); KETONE Trace (Negative); LEUKO ESTERASE 1+ (Negative); NITRITE Negative (Negative); SPECIFIC GRAVITY 1.025 (1.001-1.030); UROBILINOGEN 0.2 E.U./dl (0.0-1.0)
[2021-01-10 16:00] VITALS: BP 123/44
[2021-01-10 16:41] LABS: HYALINE CAST 0-2; MUCOUS 1+; WBC 16-20 wbc/hpf (0-5)
[2021-01-10 20:00] VITALS: BP 128/82
[2021-01-11] VITALS: BP 129/42
[2021-01-11 03:06] LABS: ANTI-THROMBIN III ANTIGEN 94 % (72-124); PROTEIN S, FREE 87 % (57-157); PROTEIN S, TOTAL 94 % (60-150)
[2021-01-11 08:00] VITALS: BP 118/58
[2021-01-11] MEDS ORDERED: LOVENOX100 MG/1 M PO (09:54)
[2021-01-11 14:08] LABS: PTT-LA 49.4 sec (0.0-51.9)
[2021-01-11 17:06] LABS: PROTEIN C, ANTIGEN 158 % (60-150)
[2021-01-12 01:05] LABS: DVVTMIXRFX CHG; LUPUS DRVVT 61.2 sec (0.0-47.0)
[2021-01-12 08:08] LABS: LUPUS REFLEX INTERPRETATION Comment: (.)
== END 2021-01-11 10:58 | disposition home or self-care (01) | DRG 300 ==
LOC: ED 11:13 → 5E 15:38 → EDHOLD 15:38 → 5E 17:44
PROVIDERS: Internal Medicine; Student in an Organized Health Care Education/Training Program; ADMIT Internal Medicine; ATTEND Internal Medicine
DX: I82.B11 Acute embolism and thrombosis of right subclavian vein (principal); G90.522 Complex regional pain syndrome I of left lower limb; I50.32 Chronic diastolic (congestive) heart failure; I82.621 Acute embolism and thrombosis of deep veins of right upper extremity; I82.A11 Acute embolism and thrombosis of right axillary vein; J45.909 Unspecified asthma, uncomplicated; F41.9 Anxiety disorder, unspecified; F32.9 Major depressive disorder, single episode, unspecified; E11.22 Type 2 diabetes mellitus with diabetic chronic kidney disease; N18.30 Chronic kidney disease, stage 3 unspecified; Z96.653 Presence of artificial knee joint, bilateral; J44.9 Chronic obstructive pulmonary disease, unspecified; E66.01 Morbid (severe) obesity due to excess calories; G47.33 Obstructive sleep apnea (adult) (pediatric); I25.10 Atherosclerotic heart disease of native coronary artery without angina pectoris; S40.021A Contusion of right upper arm, initial encounter; E55.9 Vitamin D deficiency, unspecified; I87.2 Venous insufficiency (chronic) (peripheral); K76.0 Fatty (change of) liver, not elsewhere classified; K21.9 Gastro-esophageal reflux disease without esophagitis; Z99.81 Dependence on supplemental oxygen; Z88.1 Allergy status to other antibiotic agents; Z88.0 Allergy status to penicillin; Z88.8 Allergy status to other drugs, medicaments and biological substances; Z90.722 Acquired absence of ovaries, bilateral; Z95.5 Presence of coronary angioplasty implant and graft; Z90.710 Acquired absence of both cervix and uterus; Z98.891 History of uterine scar from previous surgery; Z82.49 Family history of ischemic heart disease and other diseases of the circulatory system; Z82.3 Family history of stroke; Z86.711 Personal history of pulmonary embolism; I25.2 Old myocardial infarction; X58.XXXA Exposure to other specified factors, initial encounter; Y93.89 Activity, other specified; Y92.89 Other specified places as the place of occurrence of the external cause; Y99.8 Other external cause status

== ENCOUNTER 2021-01-21 16:38 | Inpatient (IN) | payer OTHER ==
[~2021-01-21] VITALS: Ht 163.8 cm; Wt 157.9 kg
[~2021-01-21 16:38] MED LIST changes: +LOVENOX100 MG/1 M PO
[2021-01-21 16:55] LABS: BASO % 0.5 % (0.0-1.0); EOS # 0.2 10*3/uL (0.0-0.4); HEMATOCRIT 38.7 % (37.0-47.0); LYMPH # 2.2 10*3/uL (1.3-4.4); LYMPH % 29.5 % (27.0-41.0); MEAN CELL VOLUME 92.1 fl (81.0-99.0); MEAN CORPUSCULAR HGB 29.8 pg (27.0-31.0); MEAN CORPUSCULAR HGB CONC 32.3 g/dl (33.0-37.0); MEAN PLATELET VOLUME 9.6 fl (9.6-12.3); MONO # 0.6 10*3/uL (0.1-1.0); NEUT # 4.5 10*3/uL (2.3-7.9); NEUT % 59.7 % (47.0-73.0); PLATELET COUNT AUTOMATED 274 10*3/uL (130-400); RED CELL DISTRI WIDTH 12.8 % (0-14.5); WHITE BLOOD COUNT 7.5 10*3/uL (4.8-10.8)
[2021-01-21 17:03] VITALS: BP 119/37
[2021-01-21 17:10] LABS: INTERNATIONAL NORM RATIO 0.9 (2.0-3.5)
[2021-01-21 17:12] LABS: ALBUMIN 3.4 gm/dl (3.1-4.5); ALKALINE PHOSPHATASE 88 U/L (45-117); BUN 16 mg/dl (7-24); CHLORIDE 102 mmol/L (98-107); CREATININE 1.14 mg/dL (0.55-1.02); POTASSIUM 4.4 mmol/L (3.5-5.1); SGOT/AST 13 IU/L (3-35); SGPT/ALT 20 U/L (12-78); SODIUM 138 mmol/L (136-145); TOTAL PROTEIN 7.6 gm/dL (6.4-8.2)
[2021-01-21 17:13] LABS: TROPONIN I < 0.015 ng/ml (<0.045)
[2021-01-21 19:30] VITALS: BP 124/42
[2021-01-22 05:35] LABS: CREATININE 1.15 mg/dL (0.55-1.02); POTASSIUM 4.2 mmol/L (3.5-5.1)
[2021-01-22 06:14] LABS: BASO % 0.4 % (0.0-1.0); EOS # 0.2 10*3/uL (0.0-0.4); EOS % 2.7 % (1.0-4.0); HEMATOCRIT 36.9 % (37.0-47.0); LYMPH # 2.4 10*3/uL (1.3-4.4); LYMPH % 35.8 % (27.0-41.0); MEAN CELL VOLUME 94.6 fl (81.0-99.0); MEAN CORPUSCULAR HGB CONC 31.7 g/dl (33.0-37.0); MEAN PLATELET VOLUME 9.9 fl (9.6-12.3); MONO # 0.7 10*3/uL (0.1-1.0); MONO % 10.7 % (3.0-9.0); NEUT # 3.4 10*3/uL (2.3-7.9); NEUT % 50.3 % (47.0-73.0); PLATELET COUNT AUTOMATED 235 10*3/uL (130-400); RED CELL DISTRI WIDTH 12.9 % (0-14.5); WHITE BLOOD COUNT 6.7 10*3/uL (4.8-10.8)
[2021-01-22 08:00] VITALS: BP 108/62
[2021-01-22 12:00] VITALS: BP 106/62
[2021-01-22 16:00] VITALS: BP 111/65
[2021-01-22 20:00] VITALS: BP 118/74
[2021-01-23] VITALS: BP 128/70
[2021-01-23 06:05] LABS: BASO % 0.8 % (0.0-1.0); EOS # 0.2 10*3/uL (0.0-0.4); EOS % 3.6 % (1.0-4.0); HEMATOCRIT 35.7 % (37.0-47.0); LYMPH # 1.7 10*3/uL (1.3-4.4); MEAN CELL VOLUME 94.9 fl (81.0-99.0); MEAN CORPUSCULAR HGB 29.8 pg (27.0-31.0); MEAN CORPUSCULAR HGB CONC 31.4 g/dl (33.0-37.0); MEAN PLATELET VOLUME 9.6 fl (9.6-12.3); MONO # 0.5 10*3/uL (0.1-1.0); MONO % 9.8 % (3.0-9.0); NEUT # 2.9 10*3/uL (2.3-7.9); NEUT % 53.6 % (47.0-73.0); PLATELET COUNT AUTOMATED 237 10*3/uL (130-400); RED BLOOD COUNT 3.76 10*6/uL (4.10-5.10); RED CELL DISTRI WIDTH 12.8 % (0-14.5); WHITE BLOOD COUNT 5.3 10*3/uL (4.8-10.8)
[2021-01-23 06:21] LABS: BUN 15 mg/dl (7-24); CHLORIDE 107 mmol/L (98-107); LIPASE 46 U/L (73-393); POTASSIUM 3.8 mmol/L (3.5-5.1); SODIUM 140 mmol/L (136-145)
[2021-01-23 08:00] VITALS: BP 126/62
[2021-01-23 12:00] VITALS: BP 123/68
[2021-01-23 16:00] VITALS: BP 117/60
[2021-01-23 20:00] VITALS: BP 111/58
[2021-01-24] VITALS: BP 105/54
[2021-01-24 08:00] VITALS: BP 106/36
[2021-01-24 12:00] VITALS: BP 119/54
[2021-01-24] MEDS ORDERED: FLUONAZOLE150 M1 PO (13:59)
[2021-01-24] MEDS ORDERED: Lovenox80 MG/0.8 SC (13:59)
[2021-01-24] MEDS ORDERED: OMNICEF300 MG PO (13:59)
== END 2021-01-24 15:52 | disposition home or self-care (01) | DRG 206 ==
LOC: ED 16:38 → EDHOLD 22:44 → 4E 22:44
PROVIDERS: Emergency Medicine; Internal Medicine; ADMIT Internal Medicine; ATTEND Internal Medicine
DX: M94.0 Chondrocostal junction syndrome [Tietze] (principal); L03.311 Cellulitis of abdominal wall; E44.1 Mild protein-calorie malnutrition; J96.10 Chronic respiratory failure, unspecified whether with hypoxia or hypercapnia; I50.32 Chronic diastolic (congestive) heart failure; Z68.43 Body mass index [BMI] 50.0-59.9, adult; I13.0 Hypertensive heart and chronic kidney disease with heart failure and stage 1 through stage 4 chronic kidney disease, or unspecified chronic kidney disease; S30.1XXA Contusion of abdominal wall, initial encounter; J45.909 Unspecified asthma, uncomplicated; I87.2 Venous insufficiency (chronic) (peripheral); J44.9 Chronic obstructive pulmonary disease, unspecified; E66.01 Morbid (severe) obesity due to excess calories; E11.22 Type 2 diabetes mellitus with diabetic chronic kidney disease; N18.30 Chronic kidney disease, stage 3 unspecified; Z96.653 Presence of artificial knee joint, bilateral; F41.9 Anxiety disorder, unspecified; I25.10 Atherosclerotic heart disease of native coronary artery without angina pectoris; G47.33 Obstructive sleep apnea (adult) (pediatric); E83.41 Hypermagnesemia; S31.104A Unspecified open wound of abdominal wall, left lower quadrant without penetration into peritoneal cavity, initial encounter; F32.9 Major depressive disorder, single episode, unspecified; Z86.718 Personal history of other venous thrombosis and embolism; I25.2 Old myocardial infarction; Z88.1 Allergy status to other antibiotic agents; Z88.0 Allergy status to penicillin; Z88.8 Allergy status to other drugs, medicaments and biological substances; Z90.722 Acquired absence of ovaries, bilateral; Z98.891 History of uterine scar from previous surgery; Z95.5 Presence of coronary angioplasty implant and graft; Z90.710 Acquired absence of both cervix and uterus; X58.XXXA Exposure to other specified factors, initial encounter; Y93.89 Activity, other specified; Y92.89 Other specified places as the place of occurrence of the external cause; Y99.8 Other external cause status

== ENCOUNTER 2021-07-06 12:47 | Emergency (ER) | payer MEDICARE ==
[~2021-07-06] VITALS: Ht 172.7 cm; Wt 161.5 kg
[2021-07-06 12:54] VITALS: BP 119/45
[2021-07-06 15:31] LABS: BASO % 0.5 % (0.0-1.0); EOS # 0.2 10*3/uL (0.0-0.4); HEMATOCRIT 37.1 % (37.0-47.0); LYMPH # 1.8 10*3/uL (1.3-4.4); LYMPH % 20.9 % (27.0-41.0); MEAN CELL VOLUME 92.5 fl (81.0-99.0); MEAN CORPUSCULAR HGB 29.7 pg (27.0-31.0); MEAN CORPUSCULAR HGB CONC 32.1 g/dl (33.0-37.0); MEAN PLATELET VOLUME 9.4 fl (9.6-12.3); MONO # 0.6 10*3/uL (0.1-1.0); MONO % 6.5 % (3.0-9.0); NEUT % 69.9 % (47.0-73.0); PLATELET COUNT AUTOMATED 218 10*3/uL (130-400); RED BLOOD COUNT 4.01 10*6/uL (4.10-5.10); RED CELL DISTRI WIDTH 12.5 % (0-14.5); WHITE BLOOD COUNT 8.5 10*3/uL (4.8-10.8)
[2021-07-06 15:50] LABS: ACT PARTIAL THROMBO TIME 32.8 SECONDS (20.0-32.1)
[2021-07-06 15:51] LABS: BUN 18 mg/dl (7-24); CHLORIDE 104 mmol/L (98-107); CREATININE 1.06 mg/dL (0.55-1.02); POTASSIUM 4.1 mmol/L (3.5-5.1); SODIUM 138 mmol/L (136-145)
[2021-07-06 18:07] VITALS: BP 112/58
== END 2021-07-06 19:08 | disposition short-term general hospital (02) ==
LOC: ED 12:47 → EDHOLD 16:02 → ED 16:02
PROVIDERS: Emergency Medicine
DX: S80.02XA Contusion of left knee, initial encounter (principal); I25.10 Atherosclerotic heart disease of native coronary artery without angina pectoris; K21.9 Gastro-esophageal reflux disease without esophagitis; J44.9 Chronic obstructive pulmonary disease, unspecified; E66.01 Morbid (severe) obesity due to excess calories; E11.22 Type 2 diabetes mellitus with diabetic chronic kidney disease; N18.30 Chronic kidney disease, stage 3 unspecified; Z88.0 Allergy status to penicillin; Z88.1 Allergy status to other antibiotic agents; Z88.8 Allergy status to other drugs, medicaments and biological substances; Z79.899 Other long term (current) drug therapy; W18.39XA Other fall on same level, initial encounter; Y93.89 Activity, other specified; Y92.89 Other specified places as the place of occurrence of the external cause; Y99.8 Other external cause status

== ENCOUNTER → 2021-07-06 | Outpatient (CLI) | payer MEDICARE ==
[~2021-07-06] MED LIST changes: +FLUONAZOLE150 M1 PO; +Lovenox80 MG/0.8 SC
[2021-07-06 14:24] LABS: URINE AMPHETAMINES < 1000 (1000ng/ml); URINE BARBITURATES < 200 (200ng/ml); URINE BENZODIAZEPINES < 200 (200ng/ml); URINE CANNABINOIDS (THC) < 50 (50ng/ml); URINE COCAINE < 300 (300ng/ml); URINE METHADONE < 300 (300ng/ml); URINE OPIATES > 300 (300ng/ml)
[2021-07-06 14:38] LABS: URINE PHENCYCLIDINE < 25 (25ng/ml)
== END | disposition home or self-care (01) ==
LOC: LAB 13:37
PROVIDERS: ATTEND Nurse Practitioner Family
DX: Z51.81 Encounter for therapeutic drug level monitoring (principal); Z79.899 Other long term (current) drug therapy

== ENCOUNTER → 2021-12-13 | Outpatient (CLI) | payer MEDICARE ==
[2021-12-13 14:05] LABS: BASO % 0.4 % (0.0-1.0); EOS # 0.2 10*3/uL (0.0-0.4); HEMATOCRIT 40.3 % (37.0-47.0); LYMPH # 2.5 10*3/uL (1.3-4.4); LYMPH % 31.2 % (27.0-41.0); MEAN CELL VOLUME 88.6 fl (81.0-99.0); MEAN CORPUSCULAR HGB 28.4 pg (27.0-31.0); MEAN PLATELET VOLUME 9.1 fl (9.6-12.3); MONO # 0.5 10*3/uL (0.1-1.0); MONO % 6.8 % (3.0-9.0); NEUT # 4.7 10*3/uL (2.3-7.9); NEUT % 59.5 % (47.0-73.0); PLATELET COUNT AUTOMATED 240 10*3/uL (130-400); RED BLOOD COUNT 4.55 10*6/uL (4.10-5.10); WHITE BLOOD COUNT 7.9 10*3/uL (4.8-10.8)
[2021-12-13 14:20] LABS: ALKALINE PHOSPHATASE 109 U/L (45-117); BUN 17 mg/dl (7-24); CHLORIDE 105 mmol/L (98-107); CREATININE 1.11 mg/dL (0.55-1.02); POTASSIUM 4.2 mmol/L (3.5-5.1); SGOT/AST 14 IU/L (3-35); SGPT/ALT 18 U/L (12-78); SODIUM 140 mmol/L (136-145); TOTAL PROTEIN 7.4 gm/dL (6.4-8.2); URIC ACID 5.6 mg/dL (2.6-6.0)
== END | disposition home or self-care (01) ==
LOC: LAB 13:36
PROVIDERS: ATTEND Nurse Practitioner Acute Care
DX: I12.9 Hypertensive chronic kidney disease with stage 1 through stage 4 chronic kidney disease, or unspecified chronic kidney disease (principal); N18.31 Chronic kidney disease, stage 3a

== ENCOUNTER 2022-01-07 15:07 | Emergency (ER) | payer MEDICARE ==
[~2022-01-07] VITALS: Ht 167.6 cm; Wt 171.9 kg
[2022-01-07 15:16] VITALS: BP 96/41
[2022-01-07 15:44] LABS: BASO % 0.6 % (0.0-1.0); EOS # 0.2 10*3/uL (0.0-0.4); EOS % 2.1 % (1.0-4.0); HEMATOCRIT 38.9 % (37.0-47.0); LYMPH # 1.9 10*3/uL (1.3-4.4); LYMPH % 27.6 % (27.0-41.0); MEAN CELL VOLUME 90.9 fl (81.0-99.0); MEAN CORPUSCULAR HGB 28.5 pg (27.0-31.0); MEAN CORPUSCULAR HGB CONC 31.4 g/dl (33.0-37.0); MEAN PLATELET VOLUME 9.2 fl (9.6-12.3); MONO # 0.6 10*3/uL (0.1-1.0); MONO % 7.8 % (3.0-9.0); NEUT # 4.3 10*3/uL (2.3-7.9); NEUT % 61.5 % (47.0-73.0); PLATELET COUNT AUTOMATED 215 10*3/uL (130-400); RED BLOOD COUNT 4.28 10*6/uL (4.10-5.10)
[2022-01-07 15:56] LABS: ACT PARTIAL THROMBO TIME 32.5 SECONDS (20.0-32.1); INTERNATIONAL NORM RATIO 0.9 (2.0-3.5)
[2022-01-07 16:00] LABS: CREATININE 1.13 mg/dL (0.55-1.02); POTASSIUM 4.2 mmol/L (3.5-5.1); TOTAL PROTEIN 7.2 gm/dL (6.4-8.2)
== END 2022-01-07 18:13 | disposition home or self-care (01) ==
LOC: ED 15:07
PROVIDERS: Student in an Organized Health Care Education/Training Program
DX: R07.9 Chest pain, unspecified (principal); I50.9 Heart failure, unspecified; Z88.0 Allergy status to penicillin; Z88.1 Allergy status to other antibiotic agents; Z88.8 Allergy status to other drugs, medicaments and biological substances; Z98.890 Other specified postprocedural states; Z90.89 Acquired absence of other organs; Z90.710 Acquired absence of both cervix and uterus

== ENCOUNTER 2022-01-13 14:09 | Emergency (ER) | payer MEDICARE ==
[~2022-01-13] VITALS: Ht 167.6 cm; Wt 160.1 kg
[2022-01-13 14:27] VITALS: BP 119/60
[2022-01-13] MEDS ORDERED: VIBRA-TAB100 MG PO (14:59)
== END 2022-01-13 14:57 | disposition home or self-care (01) ==
LOC: ED 14:09
DX: L03.115 Cellulitis of right lower limb (principal); Z88.0 Allergy status to penicillin; Z88.1 Allergy status to other antibiotic agents; Z88.8 Allergy status to other drugs, medicaments and biological substances; Z79.899 Other long term (current) drug therapy; Z90.89 Acquired absence of other organs; Z98.890 Other specified postprocedural states; Z90.710 Acquired absence of both cervix and uterus

== ENCOUNTER → 2022-04-23 | Outpatient (CLI) | payer MEDICARE ==
[~2022-04-23] MED LIST changes: +VIBRA-TAB100 MG PO
[2022-04-23 12:58] LABS: CREATININE 1.27 mg/dL (0.55-1.02)
== END | disposition home or self-care (01) ==
LOC: LAB 00:30 → CT 13:00
PROVIDERS: ATTEND Internal Medicine
DX: N18.9 Chronic kidney disease, unspecified (principal); K76.0 Fatty (change of) liver, not elsewhere classified; N28.1 Cyst of kidney, acquired

== ENCOUNTER 2022-07-22 12:42 | Emergency (ER) | payer MEDICARE ==
[~2022-07-22] VITALS: Ht 167.6 cm; Wt 159.7 kg
[2022-07-22 12:50] VITALS: BP 141/54
[2022-07-22 13:31] LABS: BASO % 0.5 % (0.0-1.0); EOS # 0.1 10*3/uL (0.0-0.4); EOS % 1.7 % (1.0-4.0); HEMATOCRIT 43.2 % (37.0-47.0); LYMPH # 1.2 10*3/uL (1.3-4.4); LYMPH % 18.9 % (27.0-41.0); MEAN CELL VOLUME 93.3 fl (81.0-99.0); MEAN CORPUSCULAR HGB 30.2 pg (27.0-31.0); MEAN CORPUSCULAR HGB CONC 32.4 g/dl (33.0-37.0); MEAN PLATELET VOLUME 8.8 fl (9.6-12.3); MONO # 0.7 10*3/uL (0.1-1.0); MONO % 10.3 % (3.0-9.0); NEUT # 4.4 10*3/uL (2.3-7.9); NEUT % 68.4 % (47.0-73.0); PLATELET COUNT AUTOMATED 206 10*3/uL (130-400); RED BLOOD COUNT 4.63 10*6/uL (4.10-5.10); RED CELL DISTRI WIDTH 12.8 % (0-14.5); WHITE BLOOD COUNT 6.4 10*3/uL (4.8-10.8)
[2022-07-22 13:47] LABS: CREATININE 1.16 mg/dL (0.55-1.02); POTASSIUM 4.2 mmol/L (3.5-5.1); TOTAL PROTEIN 8.1 gm/dL (6.4-8.2)
[2022-07-22] MEDS ORDERED: VIBRAMYCIN100 MG PO (15:59)
== END 2022-07-22 16:11 | disposition home or self-care (01) ==
LOC: ED 12:42
PROVIDERS: Physician Assistant
DX: J06.9 Acute upper respiratory infection, unspecified (principal); Z20.822 Contact with and (suspected) exposure to COVID-19; M54.6 Pain in thoracic spine; J45.909 Unspecified asthma, uncomplicated; I50.9 Heart failure, unspecified; Z86.711 Personal history of pulmonary embolism; Z88.8 Allergy status to other drugs, medicaments and biological substances; Z88.0 Allergy status to penicillin; Z88.1 Allergy status to other antibiotic agents; Z88.6 Allergy status to analgesic agent; Z79.899 Other long term (current) drug therapy; Z79.2 Long term (current) use of antibiotics; Z98.890 Other specified postprocedural states; Z95.5 Presence of coronary angioplasty implant and graft; Z90.89 Acquired absence of other organs; Z90.710 Acquired absence of both cervix and uterus

== ENCOUNTER 2022-08-05 13:22 | Emergency (ER) | payer MEDICARE ==
[~2022-08-05] VITALS: Ht 167.6 cm; Wt 158.8 kg
[2022-08-05 14:00] VITALS: BP 121/68
[2022-08-05 16:00] LABS: BASO % 0.4 % (0.0-1.0); EOS # 0.2 10*3/uL (0.0-0.4); EOS % 1.8 % (1.0-4.0); HEMATOCRIT 37.9 % (37.0-47.0); LYMPH # 2.1 10*3/uL (1.3-4.4); LYMPH % 23.6 % (27.0-41.0); MEAN CELL VOLUME 91.8 fl (81.0-99.0); MEAN CORPUSCULAR HGB CONC 32.7 g/dl (33.0-37.0); MEAN PLATELET VOLUME 9.1 fl (9.6-12.3); MONO # 0.7 10*3/uL (0.1-1.0); MONO % 7.6 % (3.0-9.0); NEUT # 5.9 10*3/uL (2.3-7.9); NEUT % 66.3 % (47.0-73.0); PLATELET COUNT AUTOMATED 222 10*3/uL (130-400); RED BLOOD COUNT 4.13 10*6/uL (4.10-5.10); RED CELL DISTRI WIDTH 12.7 % (0-14.5); WHITE BLOOD COUNT 8.9 10*3/uL (4.8-10.8)
[2022-08-05 16:06] LABS: CHLORIDE 102 mmol/L (98-107); POTASSIUM 4.2 mmol/L (3.4-5.1); SODIUM 138 mmol/L (136-145)
[2022-08-05 16:13] LABS: BUN 15 mg/dl (9-23); CREATININE 1.04 mg/dL (0.55-1.02)
[2022-08-05 16:14] LABS: ALKALINE PHOSPHATASE 77 U/L (46-116)
[2022-08-05 16:15] LABS: SGPT/ALT 14 U/L (10-49)
[2022-08-05] MEDS ORDERED: ZITHROMAX250 MG PO (16:46)
[2022-08-05] MEDS ORDERED: PREDNISONE10 MG PO (16:46)
== END 2022-08-05 17:15 | disposition home or self-care (01) ==
LOC: ED 13:22
PROVIDERS: Physician Assistant
DX: J40 Bronchitis, not specified as acute or chronic (principal); Z88.0 Allergy status to penicillin; Z88.1 Allergy status to other antibiotic agents; Z88.8 Allergy status to other drugs, medicaments and biological substances; Z79.899 Other long term (current) drug therapy; Z90.89 Acquired absence of other organs; Z90.710 Acquired absence of both cervix and uterus; Z98.890 Other specified postprocedural states

== ENCOUNTER 2023-02-03 21:31 | Emergency (ER) | payer MEDICARE ==
[~2023-02-03 21:31] MED LIST changes: +CEFDINIR300 MG PO; +FAMOTIDINE40 MG PO; +FONDAPARINUX SQ; +LEVOFLOXACIN750 M2 PO; +MUCINEX ER600 MG PO; +VANCO 1.251.25 GM/25 IV
[2023-02-03 21:45] VITALS: BP 149/78
== END 2023-02-03 23:38 | disposition home or self-care (01) ==
LOC: ED 21:31
DX: R58 Hemorrhage, not elsewhere classified (principal); Z88.0 Allergy status to penicillin; Z88.8 Allergy status to other drugs, medicaments and biological substances; M19.90 Unspecified osteoarthritis, unspecified site; J45.909 Unspecified asthma, uncomplicated; F41.9 Anxiety disorder, unspecified; F32.A Depression, unspecified; K21.9 Gastro-esophageal reflux disease without esophagitis; Z88.1 Allergy status to other antibiotic agents; Z88.5 Allergy status to narcotic agent; Z90.710 Acquired absence of both cervix and uterus; Z96.653 Presence of artificial knee joint, bilateral; Z98.890 Other specified postprocedural states

== ENCOUNTER → 2023-06-10 | Outpatient (CLI) | payer MEDICARE | END | disposition home or self-care (01) | LOC: WOUNDCARE 02:40 | PROVIDERS: ATTEND Nurse Practitioner Family | DX: S81.801A Unspecified open wound, right lower leg, initial encounter (principal); L02.415 Cutaneous abscess of right lower limb; L03.115 Cellulitis of right lower limb; M79.604 Pain in right leg; E11.65 Type 2 diabetes mellitus with hyperglycemia; E11.22 Type 2 diabetes mellitus with diabetic chronic kidney disease; N18.30 Chronic kidney disease, stage 3 unspecified; I50.30 Unspecified diastolic (congestive) heart failure; I25.10 Atherosclerotic heart disease of native coronary artery without angina pectoris; I25.2 Old myocardial infarction; E66.01 Morbid (severe) obesity due to excess calories; J44.9 Chronic obstructive pulmonary disease, unspecified; K21.9 Gastro-esophageal reflux disease without esophagitis; F32.A Depression, unspecified; F41.9 Anxiety disorder, unspecified; Z95.5 Presence of coronary angioplasty implant and graft; Z86.718 Personal history of other venous thrombosis and embolism; Z90.710 Acquired absence of both cervix and uterus; Z96.653 Presence of artificial knee joint, bilateral; Z68.43 Body mass index [BMI] 50.0-59.9, adult; X58.XXXA Exposure to other specified factors, initial encounter; Y93.89 Activity, other specified; Y92.89 Other specified places as the place of occurrence of the external cause; Y99.8 Other external cause status ==

== ENCOUNTER → 2023-06-16 | Outpatient (CLI) | payer MEDICARE | LOC: WOUNDCARE 00:45 | PROVIDERS: ATTEND Nurse Practitioner Family | DX: S81.801D Unspecified open wound, right lower leg, subsequent encounter (principal); E11.622 Type 2 diabetes mellitus with other skin ulcer; L97.812 Non-pressure chronic ulcer of other part of right lower leg with fat layer exposed; L02.415 Cutaneous abscess of right lower limb; L03.115 Cellulitis of right lower limb; I82.409 Acute embolism and thrombosis of unspecified deep veins of unspecified lower extremity; E11.65 Type 2 diabetes mellitus with hyperglycemia; E11.22 Type 2 diabetes mellitus with diabetic chronic kidney disease; N18.30 Chronic kidney disease, stage 3 unspecified; I50.30 Unspecified diastolic (congestive) heart failure; E66.01 Morbid (severe) obesity due to excess calories; I25.10 Atherosclerotic heart disease of native coronary artery without angina pectoris; I25.2 Old myocardial infarction; K21.9 Gastro-esophageal reflux disease without esophagitis; J44.9 Chronic obstructive pulmonary disease, unspecified; M79.604 Pain in right leg; F32.A Depression, unspecified; F41.9 Anxiety disorder, unspecified; Z95.5 Presence of coronary angioplasty implant and graft; Z90.710 Acquired absence of both cervix and uterus; Z96.653 Presence of artificial knee joint, bilateral; X58.XXXD Exposure to other specified factors, subsequent encounter ==

== ENCOUNTER → 2023-06-24 | Outpatient (CLI) | payer MEDICARE | END | disposition home or self-care (01) | LOC: WOUNDCARE 02:14 → RAD 02:14 → WOUNDCARE 04:52 | PROVIDERS: ATTEND Nurse Practitioner Family | DX: E11.622 Type 2 diabetes mellitus with other skin ulcer (principal); L97.812 Non-pressure chronic ulcer of other part of right lower leg with fat layer exposed; M25.571 Pain in right ankle and joints of right foot; S81.801D Unspecified open wound, right lower leg, subsequent encounter; L02.415 Cutaneous abscess of right lower limb; L03.115 Cellulitis of right lower limb; M79.604 Pain in right leg; I82.409 Acute embolism and thrombosis of unspecified deep veins of unspecified lower extremity; E11.65 Type 2 diabetes mellitus with hyperglycemia; I25.10 Atherosclerotic heart disease of native coronary artery without angina pectoris; E66.01 Morbid (severe) obesity due to excess calories; E11.22 Type 2 diabetes mellitus with diabetic chronic kidney disease; I13.0 Hypertensive heart and chronic kidney disease with heart failure and stage 1 through stage 4 chronic kidney disease, or unspecified chronic kidney disease; N18.30 Chronic kidney disease, stage 3 unspecified; I50.30 Unspecified diastolic (congestive) heart failure; I25.2 Old myocardial infarction; J44.9 Chronic obstructive pulmonary disease, unspecified; K21.9 Gastro-esophageal reflux disease without esophagitis; F32.A Depression, unspecified; F41.9 Anxiety disorder, unspecified; Z86.718 Personal history of other venous thrombosis and embolism; Z68.43 Body mass index [BMI] 50.0-59.9, adult; Z95.5 Presence of coronary angioplasty implant and graft; Z90.710 Acquired absence of both cervix and uterus; Z96.653 Presence of artificial knee joint, bilateral; X58.XXXD Exposure to other specified factors, subsequent encounter ==

== ENCOUNTER → 2023-07-01 | Outpatient (CLI) | payer MEDICARE | END | disposition home or self-care (01) | LOC: WOUNDCARE 02:20 | PROVIDERS: ATTEND Nurse Practitioner Family | DX: E11.622 Type 2 diabetes mellitus with other skin ulcer (principal); L97.812 Non-pressure chronic ulcer of other part of right lower leg with fat layer exposed; I82.409 Acute embolism and thrombosis of unspecified deep veins of unspecified lower extremity; L02.415 Cutaneous abscess of right lower limb; L03.115 Cellulitis of right lower limb; M79.604 Pain in right leg; E11.65 Type 2 diabetes mellitus with hyperglycemia; E11.22 Type 2 diabetes mellitus with diabetic chronic kidney disease; N18.30 Chronic kidney disease, stage 3 unspecified; I50.30 Unspecified diastolic (congestive) heart failure; I25.10 Atherosclerotic heart disease of native coronary artery without angina pectoris; E66.01 Morbid (severe) obesity due to excess calories; I25.2 Old myocardial infarction; J44.9 Chronic obstructive pulmonary disease, unspecified; K21.9 Gastro-esophageal reflux disease without esophagitis; F32.A Depression, unspecified; F41.9 Anxiety disorder, unspecified; Z95.5 Presence of coronary angioplasty implant and graft; Z90.710 Acquired absence of both cervix and uterus; Z96.653 Presence of artificial knee joint, bilateral; Z68.43 Body mass index [BMI] 50.0-59.9, adult ==

== ENCOUNTER → 2023-07-14 | Outpatient (CLI) | payer MEDICARE | END | disposition home or self-care (01) | LOC: WOUNDCARE 01:51 | PROVIDERS: ATTEND Nurse Practitioner Family | DX: E11.622 Type 2 diabetes mellitus with other skin ulcer (principal); L97.812 Non-pressure chronic ulcer of other part of right lower leg with fat layer exposed; I82.409 Acute embolism and thrombosis of unspecified deep veins of unspecified lower extremity; L02.415 Cutaneous abscess of right lower limb; L03.115 Cellulitis of right lower limb; M79.604 Pain in right leg; E11.65 Type 2 diabetes mellitus with hyperglycemia; J44.9 Chronic obstructive pulmonary disease, unspecified; I50.30 Unspecified diastolic (congestive) heart failure; I25.10 Atherosclerotic heart disease of native coronary artery without angina pectoris; E66.01 Morbid (severe) obesity due to excess calories; E11.22 Type 2 diabetes mellitus with diabetic chronic kidney disease; N18.30 Chronic kidney disease, stage 3 unspecified; K21.9 Gastro-esophageal reflux disease without esophagitis; F32.A Depression, unspecified; F41.9 Anxiety disorder, unspecified; Z68.43 Body mass index [BMI] 50.0-59.9, adult; Z95.5 Presence of coronary angioplasty implant and graft; Z90.710 Acquired absence of both cervix and uterus; Z96.653 Presence of artificial knee joint, bilateral ==

== ENCOUNTER → 2023-07-21 | Outpatient (CLI) | payer MEDICARE | END | disposition home or self-care (01) | LOC: WOUNDCARE 00:34 | PROVIDERS: ATTEND Nurse Practitioner Family | DX: E11.622 Type 2 diabetes mellitus with other skin ulcer (principal); L97.812 Non-pressure chronic ulcer of other part of right lower leg with fat layer exposed; I82.409 Acute embolism and thrombosis of unspecified deep veins of unspecified lower extremity; L02.415 Cutaneous abscess of right lower limb; L03.115 Cellulitis of right lower limb; M79.604 Pain in right leg; E11.65 Type 2 diabetes mellitus with hyperglycemia; J44.9 Chronic obstructive pulmonary disease, unspecified; I50.30 Unspecified diastolic (congestive) heart failure; I25.10 Atherosclerotic heart disease of native coronary artery without angina pectoris; E66.01 Morbid (severe) obesity due to excess calories; Z95.5 Presence of coronary angioplasty implant and graft; Z90.710 Acquired absence of both cervix and uterus ==

== ENCOUNTER → 2023-08-04 | Outpatient (CLI) | payer MEDICARE | END | disposition home or self-care (01) | LOC: WOUNDCARE 00:27 | PROVIDERS: ATTEND Nurse Practitioner Family | DX: E11.622 Type 2 diabetes mellitus with other skin ulcer (principal); L97.812 Non-pressure chronic ulcer of other part of right lower leg with fat layer exposed; E11.51 Type 2 diabetes mellitus with diabetic peripheral angiopathy without gangrene; I87.2 Venous insufficiency (chronic) (peripheral); L02.415 Cutaneous abscess of right lower limb; I82.409 Acute embolism and thrombosis of unspecified deep veins of unspecified lower extremity; L03.115 Cellulitis of right lower limb; E11.22 Type 2 diabetes mellitus with diabetic chronic kidney disease; N18.30 Chronic kidney disease, stage 3 unspecified; M79.604 Pain in right leg; E11.65 Type 2 diabetes mellitus with hyperglycemia; J44.9 Chronic obstructive pulmonary disease, unspecified; I50.30 Unspecified diastolic (congestive) heart failure; I25.10 Atherosclerotic heart disease of native coronary artery without angina pectoris; I25.2 Old myocardial infarction; E66.01 Morbid (severe) obesity due to excess calories; K21.9 Gastro-esophageal reflux disease without esophagitis; F32.A Depression, unspecified; F41.9 Anxiety disorder, unspecified; Z68.43 Body mass index [BMI] 50.0-59.9, adult; Z95.5 Presence of coronary angioplasty implant and graft; Z90.710 Acquired absence of both cervix and uterus; Z96.653 Presence of artificial knee joint, bilateral ==

== ENCOUNTER → 2023-08-20 | Outpatient (CLI) | payer MEDICARE | END | disposition home or self-care (01) | LOC: WOUNDCARE 00:54 | PROVIDERS: ATTEND Nurse Practitioner Family | DX: E11.622 Type 2 diabetes mellitus with other skin ulcer (principal); L97.812 Non-pressure chronic ulcer of other part of right lower leg with fat layer exposed; E11.51 Type 2 diabetes mellitus with diabetic peripheral angiopathy without gangrene; I87.2 Venous insufficiency (chronic) (peripheral); L02.415 Cutaneous abscess of right lower limb; I82.409 Acute embolism and thrombosis of unspecified deep veins of unspecified lower extremity; L03.115 Cellulitis of right lower limb; E11.65 Type 2 diabetes mellitus with hyperglycemia; M79.604 Pain in right leg; J44.9 Chronic obstructive pulmonary disease, unspecified; I50.30 Unspecified diastolic (congestive) heart failure; I25.10 Atherosclerotic heart disease of native coronary artery without angina pectoris; E66.01 Morbid (severe) obesity due to excess calories; E11.22 Type 2 diabetes mellitus with diabetic chronic kidney disease; N18.30 Chronic kidney disease, stage 3 unspecified; I25.2 Old myocardial infarction; K21.9 Gastro-esophageal reflux disease without esophagitis; F32.A Depression, unspecified; F41.9 Anxiety disorder, unspecified; Z86.718 Personal history of other venous thrombosis and embolism; Z68.43 Body mass index [BMI] 50.0-59.9, adult; Z95.5 Presence of coronary angioplasty implant and graft; Z90.710 Acquired absence of both cervix and uterus; Z96.653 Presence of artificial knee joint, bilateral ==

== ENCOUNTER → 2023-08-22 | Outpatient (CLI) | payer MEDICARE | END | disposition home or self-care (01) | LOC: US 08-17 14:00 | PROVIDERS: ATTEND Internal Medicine Cardiovascular Disease | DX: I82.721 Chronic embolism and thrombosis of deep veins of right upper extremity (principal); R60.9 Edema, unspecified ==

== ENCOUNTER → 2023-08-27 | Outpatient (CLI) | payer MEDICARE | END | disposition home or self-care (01) | LOC: WOUNDCARE 01:51 | PROVIDERS: ATTEND Nurse Practitioner Family | DX: E11.622 Type 2 diabetes mellitus with other skin ulcer (principal); L97.812 Non-pressure chronic ulcer of other part of right lower leg with fat layer exposed; E11.51 Type 2 diabetes mellitus with diabetic peripheral angiopathy without gangrene; I87.2 Venous insufficiency (chronic) (peripheral); L02.415 Cutaneous abscess of right lower limb; I82.409 Acute embolism and thrombosis of unspecified deep veins of unspecified lower extremity; L03.115 Cellulitis of right lower limb; E11.22 Type 2 diabetes mellitus with diabetic chronic kidney disease; N18.30 Chronic kidney disease, stage 3 unspecified; M79.604 Pain in right leg; E11.65 Type 2 diabetes mellitus with hyperglycemia; E66.01 Morbid (severe) obesity due to excess calories; J44.9 Chronic obstructive pulmonary disease, unspecified; I50.30 Unspecified diastolic (congestive) heart failure; I25.10 Atherosclerotic heart disease of native coronary artery without angina pectoris; I25.2 Old myocardial infarction; F32.A Depression, unspecified; F41.9 Anxiety disorder, unspecified; K21.9 Gastro-esophageal reflux disease without esophagitis; Z68.43 Body mass index [BMI] 50.0-59.9, adult; Z95.5 Presence of coronary angioplasty implant and graft; Z90.710 Acquired absence of both cervix and uterus; Z96.653 Presence of artificial knee joint, bilateral ==

== ENCOUNTER → 2023-09-04 | Outpatient (CLI) | payer MEDICARE | LOC: WOUNDCARE 01:12 | PROVIDERS: ATTEND Nurse Practitioner Family | DX: E11.622 Type 2 diabetes mellitus with other skin ulcer (principal); L97.812 Non-pressure chronic ulcer of other part of right lower leg with fat layer exposed; L02.415 Cutaneous abscess of right lower limb; L03.115 Cellulitis of right lower limb; E11.51 Type 2 diabetes mellitus with diabetic peripheral angiopathy without gangrene; E11.65 Type 2 diabetes mellitus with hyperglycemia; E11.22 Type 2 diabetes mellitus with diabetic chronic kidney disease; N18.30 Chronic kidney disease, stage 3 unspecified; I87.2 Venous insufficiency (chronic) (peripheral); I82.409 Acute embolism and thrombosis of unspecified deep veins of unspecified lower extremity; M79.604 Pain in right leg; J44.9 Chronic obstructive pulmonary disease, unspecified; I50.30 Unspecified diastolic (congestive) heart failure; I25.10 Atherosclerotic heart disease of native coronary artery without angina pectoris; K21.9 Gastro-esophageal reflux disease without esophagitis; E55.9 Vitamin D deficiency, unspecified; E66.01 Morbid (severe) obesity due to excess calories; F32.A Depression, unspecified; F41.9 Anxiety disorder, unspecified; Z68.43 Body mass index [BMI] 50.0-59.9, adult; Z86.718 Personal history of other venous thrombosis and embolism; Z90.710 Acquired absence of both cervix and uterus; Z96.653 Presence of artificial knee joint, bilateral; Z95.818 Presence of other cardiac implants and grafts ==

== ENCOUNTER → 2023-09-17 | Outpatient (CLI) | payer MEDICARE | END | disposition home or self-care (01) | LOC: WOUNDCARE 09-10 00:51 | PROVIDERS: ATTEND Nurse Practitioner Family | DX: E11.622 Type 2 diabetes mellitus with other skin ulcer (principal); L97.812 Non-pressure chronic ulcer of other part of right lower leg with fat layer exposed; E11.51 Type 2 diabetes mellitus with diabetic peripheral angiopathy without gangrene; E11.65 Type 2 diabetes mellitus with hyperglycemia; E11.22 Type 2 diabetes mellitus with diabetic chronic kidney disease; N18.30 Chronic kidney disease, stage 3 unspecified; I50.30 Unspecified diastolic (congestive) heart failure; I87.2 Venous insufficiency (chronic) (peripheral); I82.409 Acute embolism and thrombosis of unspecified deep veins of unspecified lower extremity; I25.10 Atherosclerotic heart disease of native coronary artery without angina pectoris; L02.415 Cutaneous abscess of right lower limb; L03.115 Cellulitis of right lower limb; M79.604 Pain in right leg; J44.9 Chronic obstructive pulmonary disease, unspecified; E55.9 Vitamin D deficiency, unspecified; F32.A Depression, unspecified; F41.9 Anxiety disorder, unspecified; E66.01 Morbid (severe) obesity due to excess calories; Z68.43 Body mass index [BMI] 50.0-59.9, adult; Z86.718 Personal history of other venous thrombosis and embolism; Z95.818 Presence of other cardiac implants and grafts; Z90.710 Acquired absence of both cervix and uterus; Z96.653 Presence of artificial knee joint, bilateral ==

== ENCOUNTER → 2023-10-08 | Outpatient (CLI) | payer MEDICARE | END | disposition home or self-care (01) | LOC: WOUNDCARE 02:56 | PROVIDERS: ATTEND Nurse Practitioner Family | DX: E11.622 Type 2 diabetes mellitus with other skin ulcer (principal); L97.812 Non-pressure chronic ulcer of other part of right lower leg with fat layer exposed; E11.51 Type 2 diabetes mellitus with diabetic peripheral angiopathy without gangrene; I87.2 Venous insufficiency (chronic) (peripheral); L02.415 Cutaneous abscess of right lower limb; I82.409 Acute embolism and thrombosis of unspecified deep veins of unspecified lower extremity; L03.115 Cellulitis of right lower limb; M79.604 Pain in right leg; E11.65 Type 2 diabetes mellitus with hyperglycemia; J44.9 Chronic obstructive pulmonary disease, unspecified; I25.10 Atherosclerotic heart disease of native coronary artery without angina pectoris; I50.30 Unspecified diastolic (congestive) heart failure; E11.22 Type 2 diabetes mellitus with diabetic chronic kidney disease; I13.0 Hypertensive heart and chronic kidney disease with heart failure and stage 1 through stage 4 chronic kidney disease, or unspecified chronic kidney disease; N18.30 Chronic kidney disease, stage 3 unspecified; Z86.718 Personal history of other venous thrombosis and embolism; K21.9 Gastro-esophageal reflux disease without esophagitis; E55.9 Vitamin D deficiency, unspecified; E66.01 Morbid (severe) obesity due to excess calories; F32.A Depression, unspecified; Z68.43 Body mass index [BMI] 50.0-59.9, adult; Z90.710 Acquired absence of both cervix and uterus; Z96.653 Presence of artificial knee joint, bilateral ==

== ENCOUNTER → 2023-10-15 | Outpatient (CLI) | payer MEDICARE | END | disposition home or self-care (01) | LOC: WOUNDCARE 01:12 | PROVIDERS: ATTEND Nurse Practitioner Family | DX: E11.622 Type 2 diabetes mellitus with other skin ulcer (principal); L97.812 Non-pressure chronic ulcer of other part of right lower leg with fat layer exposed; E11.51 Type 2 diabetes mellitus with diabetic peripheral angiopathy without gangrene; I87.2 Venous insufficiency (chronic) (peripheral); L02.415 Cutaneous abscess of right lower limb; L03.115 Cellulitis of right lower limb; I82.509 Chronic embolism and thrombosis of unspecified deep veins of unspecified lower extremity; M79.604 Pain in right leg; J44.9 Chronic obstructive pulmonary disease, unspecified; I50.30 Unspecified diastolic (congestive) heart failure; I25.10 Atherosclerotic heart disease of native coronary artery without angina pectoris; E11.22 Type 2 diabetes mellitus with diabetic chronic kidney disease; N18.30 Chronic kidney disease, stage 3 unspecified; E11.65 Type 2 diabetes mellitus with hyperglycemia; K21.9 Gastro-esophageal reflux disease without esophagitis; E55.9 Vitamin D deficiency, unspecified; E66.01 Morbid (severe) obesity due to excess calories; F32.A Depression, unspecified; F41.9 Anxiety disorder, unspecified; Z68.43 Body mass index [BMI] 50.0-59.9, adult; Z95.818 Presence of other cardiac implants and grafts; Z90.710 Acquired absence of both cervix and uterus; Z96.653 Presence of artificial knee joint, bilateral ==

== ENCOUNTER → 2023-10-23 | Outpatient (CLI) | payer MEDICARE ==
[2023-10-23 15:36] LABS: BASO % 0.3 % (0.0-1.0); EOS # 0.2 10*3/uL (0.0-0.4); EOS % 2.1 % (1.0-4.0); LYMPH # 2.2 10*3/uL (1.3-4.4); LYMPH % 31.7 % (27.0-41.0); MEAN CELL VOLUME 92.4 fl (81.0-99.0); MEAN CORPUSCULAR HGB 29.4 pg (27.0-31.0); MEAN CORPUSCULAR HGB CONC 31.8 g/dl (33.0-37.0); MEAN PLATELET VOLUME 9.1 fl (9.6-12.3); MONO # 0.5 10*3/uL (0.1-1.0); MONO % 7.4 % (3.0-9.0); NEUT # 4.1 10*3/uL (2.3-7.9); NEUT % 58.2 % (47.0-73.0); PLATELET COUNT AUTOMATED 219 10*3/uL (130-400); RED BLOOD COUNT 4.22 10*6/uL (4.10-5.10); RED CELL DISTRI WIDTH 12.6 % (0-14.5)
[2023-10-23 15:58] LABS: POTASSIUM 4.1 mmol/L (3.4-5.1); TOTAL PROTEIN 7.2 gm/dL (6.0-8.0)
== END | disposition home or self-care (01) ==
LOC: WOUNDCARE 00:51 → LAB 00:51 → WOUNDCARE 04:44
PROVIDERS: Specialist; ATTEND Nurse Practitioner Family
DX: L03.90 Cellulitis, unspecified (principal)

== ENCOUNTER → 2023-11-03 | Outpatient (CLI) | payer MEDICARE | END | disposition home or self-care (01) | LOC: WOUNDCARE 02:26 | PROVIDERS: ATTEND Nurse Practitioner Family | DX: E11.622 Type 2 diabetes mellitus with other skin ulcer (principal); L97.811 Non-pressure chronic ulcer of other part of right lower leg limited to breakdown of skin; E11.51 Type 2 diabetes mellitus with diabetic peripheral angiopathy without gangrene; I87.2 Venous insufficiency (chronic) (peripheral); L02.415 Cutaneous abscess of right lower limb; L03.115 Cellulitis of right lower limb; E11.22 Type 2 diabetes mellitus with diabetic chronic kidney disease; N18.30 Chronic kidney disease, stage 3 unspecified; I50.30 Unspecified diastolic (congestive) heart failure; E11.65 Type 2 diabetes mellitus with hyperglycemia; I82.409 Acute embolism and thrombosis of unspecified deep veins of unspecified lower extremity; M79.604 Pain in right leg; J44.9 Chronic obstructive pulmonary disease, unspecified; I25.10 Atherosclerotic heart disease of native coronary artery without angina pectoris; E66.01 Morbid (severe) obesity due to excess calories; I25.2 Old myocardial infarction; K21.9 Gastro-esophageal reflux disease without esophagitis; F32.A Depression, unspecified; F41.9 Anxiety disorder, unspecified; Z68.43 Body mass index [BMI] 50.0-59.9, adult; Z86.718 Personal history of other venous thrombosis and embolism; Z95.5 Presence of coronary angioplasty implant and graft; Z90.710 Acquired absence of both cervix and uterus; Z96.653 Presence of artificial knee joint, bilateral ==

== ENCOUNTER → 2023-11-04 | Outpatient (CLI) | payer MEDICARE | END | disposition home or self-care (01) | LOC: MAMMO 09-08 15:00 | PROVIDERS: ATTEND Internal Medicine | DX: Z12.31 Encounter for screening mammogram for malignant neoplasm of breast (principal) ==

== ENCOUNTER 2023-11-14 16:43 | Emergency (ER) | payer MEDICARE ==
[~2023-11-14] VITALS: Wt 153.3 kg
[2023-11-14] MEDS ORDERED: methylPREDNISolone sod succ 125 MG VIAL IV ONE (16:55)
[2023-11-14] MEDS ORDERED: Albuterol Sulfate 2.5 MG/3 ML VIAL NEB ONE (16:55)
[2023-11-14] MEDS ORDERED: MAGNESIUM SULFATE 50 ML IV ONE (16:55)
[2023-11-14 17:08] LABS: BASO % 0.4 % (0.0-1.0); EOS # 0.2 10*3/uL (0.0-0.4); EOS % 2.7 % (1.0-4.0); HEMATOCRIT 40.1 % (37.0-47.0); LYMPH # 1.3 10*3/uL (1.3-4.4); LYMPH % 22.6 % (27.0-41.0); MEAN CELL VOLUME 91.8 fl (81.0-99.0); MEAN CORPUSCULAR HGB 28.8 pg (27.0-31.0); MEAN CORPUSCULAR HGB CONC 31.4 g/dl (33.0-37.0); MEAN PLATELET VOLUME 9.1 fl (9.6-12.3); MONO # 0.6 10*3/uL (0.1-1.0); MONO % 10.8 % (3.0-9.0); NEUT # 3.5 10*3/uL (2.3-7.9); NEUT % 63.3 % (47.0-73.0); PLATELET COUNT AUTOMATED 202 10*3/uL (130-400); RED BLOOD COUNT 4.37 10*6/uL (4.10-5.10); RED CELL DISTRI WIDTH 12.6 % (0-14.5); WHITE BLOOD COUNT 5.6 10*3/uL (4.8-10.8)
[2023-11-14 17:19] LABS: ACT PARTIAL THROMBO TIME 37.2 SECONDS (20.0-32.1)
[2023-11-14 17:25] LABS: POTASSIUM 3.9 mmol/L (3.4-5.1); TOTAL PROTEIN 7.6 gm/dL (6.0-8.0)
[2023-11-14] MEDS ORDERED: FUROSEMIDE 40 MG/4 ML VIAL IV ONE (17:40)
[2023-11-14] MEDS ORDERED: AVPAK AZITHROM250 M1 PO (17:41)
[2023-11-14] MEDS ORDERED: PREDNISONE20 M1 PO (17:41)
[2023-11-14 17:59] VITALS: BP 128/74
== END 2023-11-14 19:26 | disposition home or self-care (01) ==
LOC: ED 16:43
PROVIDERS: Emergency Medicine
DX: J44.1 Chronic obstructive pulmonary disease with (acute) exacerbation (principal); I13.0 Hypertensive heart and chronic kidney disease with heart failure and stage 1 through stage 4 chronic kidney disease, or unspecified chronic kidney disease; E11.22 Type 2 diabetes mellitus with diabetic chronic kidney disease; N18.9 Chronic kidney disease, unspecified; I50.9 Heart failure, unspecified; M79.89 Other specified soft tissue disorders; E78.5 Hyperlipidemia, unspecified; I25.10 Atherosclerotic heart disease of native coronary artery without angina pectoris; M19.90 Unspecified osteoarthritis, unspecified site; Z88.8 Allergy status to other drugs, medicaments and biological substances; Z88.0 Allergy status to penicillin; Z88.1 Allergy status to other antibiotic agents; Z88.6 Allergy status to analgesic agent; Z79.2 Long term (current) use of antibiotics; Z79.899 Other long term (current) drug therapy; Z98.890 Other specified postprocedural states; Z95.5 Presence of coronary angioplasty implant and graft; Z90.711 Acquired absence of uterus with remaining cervical stump; Z96.653 Presence of artificial knee joint, bilateral; Z90.89 Acquired absence of other organs; Z86.718 Personal history of other venous thrombosis and embolism

== ENCOUNTER → 2023-11-17 | Outpatient (CLI) | payer MEDICARE ==
[~2023-11-17] MED LIST changes: +AVPAK AZITHROM250 M1 PO; +PREDNISONE20 M1 PO
== END | disposition home or self-care (01) ==
LOC: WOUNDCARE 01:54
PROVIDERS: ATTEND Nurse Practitioner Family
DX: E11.622 Type 2 diabetes mellitus with other skin ulcer (principal); L97.811 Non-pressure chronic ulcer of other part of right lower leg limited to breakdown of skin; E11.65 Type 2 diabetes mellitus with hyperglycemia; E11.51 Type 2 diabetes mellitus with diabetic peripheral angiopathy without gangrene; I25.10 Atherosclerotic heart disease of native coronary artery without angina pectoris; I50.30 Unspecified diastolic (congestive) heart failure; J44.9 Chronic obstructive pulmonary disease, unspecified; L02.415 Cutaneous abscess of right lower limb; L03.115 Cellulitis of right lower limb; I87.2 Venous insufficiency (chronic) (peripheral); M79.604 Pain in right leg; E66.01 Morbid (severe) obesity due to excess calories; E11.22 Type 2 diabetes mellitus with diabetic chronic kidney disease; N18.30 Chronic kidney disease, stage 3 unspecified; K21.9 Gastro-esophageal reflux disease without esophagitis; I25.2 Old myocardial infarction; E55.9 Vitamin D deficiency, unspecified; F32.A Depression, unspecified; F41.9 Anxiety disorder, unspecified; Z68.43 Body mass index [BMI] 50.0-59.9, adult; Z86.718 Personal history of other venous thrombosis and embolism; Z90.710 Acquired absence of both cervix and uterus; Z96.653 Presence of artificial knee joint, bilateral; Z79.899 Other long term (current) drug therapy

== ENCOUNTER 2023-12-16 13:00 | Emergency (ER) | payer MEDICARE ==
[~2023-12-16] VITALS: Ht 167.6 cm; Wt 152.0 kg
[2023-12-16 13:23] VITALS: BP 134/47
[2023-12-16] MEDS ORDERED: ceFAZolin sodium/sodium chlor 10 ML IV ONE (13:35)
[2023-12-16] MEDS ORDERED: Sulfamethoxazole/Trimethopri 1 TAB TAB PO ONE (13:35)
[2023-12-16 14:11] LABS: BASO % 0.3 % (0.0-1.0); EOS # 0.1 10*3/uL (0.0-0.4); EOS % 1.6 % (1.0-4.0); LYMPH # 1.8 10*3/uL (1.3-4.4); LYMPH % 27.6 % (27.0-41.0); MEAN CELL VOLUME 93.1 fl (81.0-99.0); MEAN CORPUSCULAR HGB 29.1 pg (27.0-31.0); MEAN CORPUSCULAR HGB CONC 31.3 g/dl (33.0-37.0); MEAN PLATELET VOLUME 9.1 fl (9.6-12.3); MONO # 0.6 10*3/uL (0.1-1.0); MONO % 8.4 % (3.0-9.0); NEUT # 4.1 10*3/uL (2.3-7.9); NEUT % 61.8 % (47.0-73.0); PLATELET COUNT AUTOMATED 202 10*3/uL (130-400); RED BLOOD COUNT 4.19 10*6/uL (4.10-5.10); RED CELL DISTRI WIDTH 13.3 % (0-14.5); WHITE BLOOD COUNT 6.7 10*3/uL (4.8-10.8)
[2023-12-16] MEDS ORDERED: PEPCID40 MG PO (14:11)
[2023-12-16] MEDS ORDERED: MAGNESIUM400 MG PO (14:12)
[2023-12-16] MEDS ORDERED: VITAMIN D325 MC1 PO (14:14)
[2023-12-16] MEDS ORDERED: BUMETANIDE2 MG PO (14:14)
[2023-12-16] MEDS ORDERED: TRAZODONE100 MG PO (14:15)
[2023-12-16] MEDS ORDERED: NEURONTIN100 MG PO (14:18)
[2023-12-16 14:32] LABS: ALKALINE PHOSPHATASE 108 U/L (46-116); BUN 15 mg/dl (9-23); CHLORIDE 101 mmol/L (98-107); POTASSIUM 3.8 mmol/L (3.4-5.1); SGPT/ALT 24 U/L (5-49); TOTAL PROTEIN 6.4 gm/dL (6.0-8.0)
[2023-12-16] MEDS ORDERED: Ketorolac Tromethamine 15 MG/ML VIAL IV ONE (15:05)
[2023-12-16] MEDS ORDERED: FUROSEMIDE 40 MG/4 ML VIAL IV ONE (15:05)
[2023-12-16] MEDS ORDERED: CEPHALEXIN500 M1 PO (15:06)
[2023-12-16] MEDS ORDERED: SEPTDS PO (15:06)
== END 2023-12-16 15:30 | disposition home or self-care (01) ==
LOC: ED 13:00
PROVIDERS: Emergency Medicine
DX: L03.115 Cellulitis of right lower limb (principal); J44.9 Chronic obstructive pulmonary disease, unspecified; E11.9 Type 2 diabetes mellitus without complications; I10 Essential (primary) hypertension; E78.5 Hyperlipidemia, unspecified; Z86.718 Personal history of other venous thrombosis and embolism; J45.909 Unspecified asthma, uncomplicated; M19.90 Unspecified osteoarthritis, unspecified site; F41.9 Anxiety disorder, unspecified; K21.9 Gastro-esophageal reflux disease without esophagitis; Z88.0 Allergy status to penicillin; Z88.8 Allergy status to other drugs, medicaments and biological substances; Z88.1 Allergy status to other antibiotic agents; Z98.890 Other specified postprocedural states; Z90.710 Acquired absence of both cervix and uterus; Z96.653 Presence of artificial knee joint, bilateral; Z90.89 Acquired absence of other organs

== ENCOUNTER → 2024-06-10 | Outpatient (CLI) | payer MEDICARE ==
[~2024-06-10] MED LIST changes: +ARTHRITIS PAIN150 GM T; +BUMETANIDE2 MG PO; +HYDROCODONE-AC1 EAC2 PO; +JARDIANCE10 MG PO; +MAGNESIUM400 MG PO; +NEURONTIN100 MG PO; +PEPCID40 MG PO; +SENOKOT8.6 MG PO; +SEPTDS PO; +TRAZODONE100 MG PO; +VITAMIN D325 MC1 PO
[2024-06-10 15:14] LABS: BASO % 0.4 % (0.0-1.0); EOS # 0.2 10*3/uL (0.0-0.4); EOS % 2.2 % (1.0-4.0); HEMATOCRIT 41.8 % (37.0-47.0); LYMPH # 2.2 10*3/uL (1.3-4.4); LYMPH % 31.5 % (27.0-41.0); MEAN CELL VOLUME 89.5 fl (81.0-99.0); MEAN CORPUSCULAR HGB 29.8 pg (27.0-31.0); MEAN CORPUSCULAR HGB CONC 33.3 g/dl (33.0-37.0); MEAN PLATELET VOLUME 9.2 fl (9.6-12.3); MONO # 0.5 10*3/uL (0.1-1.0); MONO % 7.3 % (3.0-9.0); NEUT % 58.3 % (47.0-73.0); PLATELET COUNT AUTOMATED 246 10*3/uL (130-400); RED BLOOD COUNT 4.67 10*6/uL (4.10-5.10); RED CELL DISTRI WIDTH 13.2 % (0-14.5); WHITE BLOOD COUNT 6.8 10*3/uL (4.8-10.8)
[2024-06-10 15:35] LABS: TOTAL PROTEIN 7.2 gm/dL (6.0-8.0)
== END | disposition home or self-care (01) ==
LOC: LAB 14:33
PROVIDERS: ATTEND Community Health Worker
DX: B37.31 Acute candidiasis of vulva and vagina (principal)

== ENCOUNTER → 2024-07-15 | Outpatient (CLI) | payer MEDICARE ==
[2024-07-15 07:40] LABS: BILIRUBIN Negative (Negative); BLOOD Negative (Negative); CLARITY Clear (Clear); COLOR Yellow (Yellow); GLUCOSE 2+ (Negative); KETONE Negative (Negative); LEUKO ESTERASE Negative (Negative); NITRITE Negative (Negative); PH 6.5 (4.5-8.0); UROBILINOGEN 0.2 E.U./dl (0.0-1.0)
[2024-07-15 07:41] LABS: BASO % 0.5 % (0.0-1.0); EOS # 0.2 10*3/uL (0.0-0.4); EOS % 2.4 % (1.0-4.0); HEMATOCRIT 42.6 % (37.0-47.0); MEAN CELL VOLUME 91.8 fl (81.0-99.0); MEAN CORPUSCULAR HGB 29.1 pg (27.0-31.0); MEAN CORPUSCULAR HGB CONC 31.7 g/dl (33.0-37.0); MEAN PLATELET VOLUME 9.3 fl (9.6-12.3); MONO # 0.5 10*3/uL (0.1-1.0); MONO % 7.7 % (3.0-9.0); NEUT # 3.2 10*3/uL (2.3-7.9); NEUT % 51.1 % (47.0-73.0); PLATELET COUNT AUTOMATED 239 10*3/uL (130-400); RED BLOOD COUNT 4.64 10*6/uL (4.10-5.10); WHITE BLOOD COUNT 6.3 10*3/uL (4.8-10.8)
[2024-07-15 07:53] LABS: URINE CREATININE RANDOM 19.84 mg/dL
[2024-07-15 08:08] LABS: POTASSIUM 3.5 mmol/L (3.4-5.1)
[2024-07-15 08:17] LABS: BACTERIA 3+; WBC 0-2 wbc/hpf (0-5)
[2024-07-15 08:24] LABS: VITAMIN D, 25-HYDROXY 89.1 ng/mL (30-100)
== END | disposition home or self-care (01) ==
LOC: LAB 00:31
PROVIDERS: ATTEND Internal Medicine Nephrology
DX: N25.81 Secondary hyperparathyroidism of renal origin (principal); E55.9 Vitamin D deficiency, unspecified; D63.1 Anemia in chronic kidney disease; E11.22 Type 2 diabetes mellitus with diabetic chronic kidney disease; N18.30 Chronic kidney disease, stage 3 unspecified

== ENCOUNTER → 2024-12-09 | Outpatient (CLI) | payer MEDICARE ==
[2024-12-09 16:50] LABS: BASO % 0.5 % (0.0-1.0); EOS # 0.1 10*3/uL (0.0-0.4); EOS % 1.7 % (1.0-4.0); HEMATOCRIT 43.2 % (37.0-47.0); MEAN CELL VOLUME 91.5 fl (81.0-99.0); MEAN CORPUSCULAR HGB 29.4 pg (27.0-31.0); MEAN CORPUSCULAR HGB CONC 32.2 g/dl (33.0-37.0); MEAN PLATELET VOLUME 9.3 fl (9.6-12.3); MONO # 0.5 10*3/uL (0.1-1.0); MONO % 6.1 % (3.0-9.0); NEUT # 5.5 10*3/uL (2.3-7.9); PLATELET COUNT AUTOMATED 234 10*3/uL (130-400); RED BLOOD COUNT 4.72 10*6/uL (4.10-5.10); RED CELL DISTRI WIDTH 12.7 % (0-14.5); WHITE BLOOD COUNT 8.4 10*3/uL (4.8-10.8)
[2024-12-09 16:51] LABS: BILIRUBIN Negative (Negative); BLOOD Negative (Negative); CLARITY Clear (Clear); COLOR Yellow (Yellow); GLUCOSE 3+ (Negative); KETONE Negative (Negative); LEUKO ESTERASE Negative (Negative); NITRITE Negative (Negative); PH 5.5 (4.5-8.0); SPECIFIC GRAVITY 1.015 (1.001-1.030); UROBILINOGEN 0.2 E.U./dl (0.0-1.0)
[2024-12-09 17:10] LABS: BACTERIA TRACE
[2024-12-09 17:11] LABS: YEAST 1+
[2024-12-09 17:26] LABS: POTASSIUM 3.6 mmol/L (3.4-5.1)
[2024-12-09 17:27] LABS: POTASSIUM 3.7 mmol/L (3.4-5.1)
== END | disposition home or self-care (01) ==
LOC: LAB 16:21
PROVIDERS: Specialist; ATTEND Internal Medicine Nephrology
DX: L03.90 Cellulitis, unspecified (principal); N18.30 Chronic kidney disease, stage 3 unspecified; E55.9 Vitamin D deficiency, unspecified; D63.1 Anemia in chronic kidney disease; N25.81 Secondary hyperparathyroidism of renal origin

== ENCOUNTER 2025-03-26 19:19 | Emergency (ER) | payer MEDICARE ==
[~2025-03-26] VITALS: Ht 167.6 cm; Wt 127.0 kg
[2025-03-26 19:22] VITALS: BP 122/59
[2025-03-26] MEDS ORDERED: Tdap Vaccine 0.5 ML SYR (Adult Vaccine) IM ONE (19:30)
[2025-03-26] MEDS ORDERED: LIDOCAINE HCL/EPINEPHRINE BIT 1.8 ML CARTRIDGE IJ ONE (19:35)
[2025-03-26] MEDS ORDERED: EPINEPHrine/Lidocaine Hydroc 20 ML VIAL SC ONE (19:35)
== END 2025-03-26 20:58 | disposition home or self-care (01) ==
LOC: ED 19:19
DX: S81.811A Laceration without foreign body, right lower leg, initial encounter (principal); I25.10 Atherosclerotic heart disease of native coronary artery without angina pectoris; Z86.711 Personal history of pulmonary embolism; Z88.0 Allergy status to penicillin; Z88.1 Allergy status to other antibiotic agents; Z88.8 Allergy status to other drugs, medicaments and biological substances; Z79.899 Other long term (current) drug therapy; Z98.890 Other specified postprocedural states; Z95.5 Presence of coronary angioplasty implant and graft; Z90.710 Acquired absence of both cervix and uterus; Z96.653 Presence of artificial knee joint, bilateral; Z90.89 Acquired absence of other organs; W22.09XA Striking against other stationary object, initial encounter; Y93.89 Activity, other specified; Y92.89 Other specified places as the place of occurrence of the external cause; Y99.8 Other external cause status

== ENCOUNTER → 2025-03-28 | Outpatient (CLI) | payer MEDICARE | END | disposition home or self-care (01) | LOC: WOUNDCARE 04:04 | PROVIDERS: ATTEND Nurse Practitioner Family | DX: S81.811A Laceration without foreign body, right lower leg, initial encounter (principal); I87.2 Venous insufficiency (chronic) (peripheral); E11.22 Type 2 diabetes mellitus with diabetic chronic kidney disease; N18.30 Chronic kidney disease, stage 3 unspecified; E11.51 Type 2 diabetes mellitus with diabetic peripheral angiopathy without gangrene; J44.9 Chronic obstructive pulmonary disease, unspecified; I25.10 Atherosclerotic heart disease of native coronary artery without angina pectoris; I25.2 Old myocardial infarction; K21.9 Gastro-esophageal reflux disease without esophagitis; E55.9 Vitamin D deficiency, unspecified; F32.A Depression, unspecified; F41.9 Anxiety disorder, unspecified; Z86.718 Personal history of other venous thrombosis and embolism; Z90.710 Acquired absence of both cervix and uterus; Z96.653 Presence of artificial knee joint, bilateral; Z98.890 Other specified postprocedural states; Z79.899 Other long term (current) drug therapy; X58.XXXA Exposure to other specified factors, initial encounter; Y93.89 Activity, other specified; Y92.89 Other specified places as the place of occurrence of the external cause; Y99.8 Other external cause status ==

== ENCOUNTER → 2025-04-05 | Outpatient (CLI) | payer MEDICARE | END | disposition home or self-care (01) | LOC: WOUNDCARE 01:35 | PROVIDERS: ATTEND Nurse Practitioner Family | DX: S81.811D Laceration without foreign body, right lower leg, subsequent encounter (principal); E11.51 Type 2 diabetes mellitus with diabetic peripheral angiopathy without gangrene; I87.2 Venous insufficiency (chronic) (peripheral); I25.2 Old myocardial infarction; I25.10 Atherosclerotic heart disease of native coronary artery without angina pectoris; N18.30 Chronic kidney disease, stage 3 unspecified; J44.9 Chronic obstructive pulmonary disease, unspecified; E55.9 Vitamin D deficiency, unspecified; K21.9 Gastro-esophageal reflux disease without esophagitis; F41.9 Anxiety disorder, unspecified; F32.A Depression, unspecified; Z86.718 Personal history of other venous thrombosis and embolism; Z90.710 Acquired absence of both cervix and uterus; Z96.653 Presence of artificial knee joint, bilateral; Z98.890 Other specified postprocedural states; Z79.899 Other long term (current) drug therapy; X58.XXXD Exposure to other specified factors, subsequent encounter ==

== ENCOUNTER → 2025-04-19 | Outpatient (CLI) | payer MEDICARE | END | disposition home or self-care (01) | LOC: WOUNDCARE 03:16 | PROVIDERS: ATTEND Nurse Practitioner Family | DX: S81.811D Laceration without foreign body, right lower leg, subsequent encounter (principal); S51.811A Laceration without foreign body of right forearm, initial encounter; E11.51 Type 2 diabetes mellitus with diabetic peripheral angiopathy without gangrene; I87.2 Venous insufficiency (chronic) (peripheral); I25.2 Old myocardial infarction; I25.10 Atherosclerotic heart disease of native coronary artery without angina pectoris; E55.9 Vitamin D deficiency, unspecified; J44.9 Chronic obstructive pulmonary disease, unspecified; K21.9 Gastro-esophageal reflux disease without esophagitis; N18.30 Chronic kidney disease, stage 3 unspecified; F32.A Depression, unspecified; F41.9 Anxiety disorder, unspecified; Z86.718 Personal history of other venous thrombosis and embolism; Z90.710 Acquired absence of both cervix and uterus; Z98.890 Other specified postprocedural states; Z79.899 Other long term (current) drug therapy; X58.XXXD Exposure to other specified factors, subsequent encounter; X58.XXXA Exposure to other specified factors, initial encounter; Y93.9 Activity, unspecified; Y92.89 Other specified places as the place of occurrence of the external cause; Y99.8 Other external cause status ==

== ENCOUNTER → 2025-05-02 | Outpatient (CLI) | payer MEDICARE | END | disposition home or self-care (01) | LOC: WOUNDCARE 03:50 | PROVIDERS: ATTEND Nurse Practitioner Family | DX: S81.811D Laceration without foreign body, right lower leg, subsequent encounter (principal); S51.811D Laceration without foreign body of right forearm, subsequent encounter; I87.2 Venous insufficiency (chronic) (peripheral); E11.51 Type 2 diabetes mellitus with diabetic peripheral angiopathy without gangrene; E11.22 Type 2 diabetes mellitus with diabetic chronic kidney disease; N18.30 Chronic kidney disease, stage 3 unspecified; I25.2 Old myocardial infarction; I25.10 Atherosclerotic heart disease of native coronary artery without angina pectoris; E55.9 Vitamin D deficiency, unspecified; J44.9 Chronic obstructive pulmonary disease, unspecified; K21.9 Gastro-esophageal reflux disease without esophagitis; F32.A Depression, unspecified; F41.9 Anxiety disorder, unspecified; Z86.718 Personal history of other venous thrombosis and embolism; Z96.653 Presence of artificial knee joint, bilateral; Z98.890 Other specified postprocedural states; Z79.899 Other long term (current) drug therapy; X58.XXXD Exposure to other specified factors, subsequent encounter ==

== ENCOUNTER → 2025-06-01 | Outpatient (CLI) | payer MEDICARE ==
[2025-06-01 09:46] LABS: VITAMIN D, 25-HYDROXY 66.7 ng/mL (30-100)
[2025-06-01 09:47] LABS: BUN 21.0 mg/dl (9-23); FREE T4 0.92 ng/dl (0.89-1.76); LDL CHOLESTEROL 59.0 mg/dL (9-159); SGPT/ALT 13.0 U/L (5-49)
== END | disposition home or self-care (01) ==
LOC: LAB 08:20
PROVIDERS: ATTEND Internal Medicine
DX: E11.9 Type 2 diabetes mellitus without complications (principal); E21.5 Disorder of parathyroid gland, unspecified; E55.9 Vitamin D deficiency, unspecified; E04.9 Nontoxic goiter, unspecified; E78.5 Hyperlipidemia, unspecified

== ENCOUNTER → 2025-06-09 | Outpatient (CLI) | payer MEDICARE ==
[2025-06-09 13:16] LABS: BASO # 0.0 10*3/uL (0.0-0.1); BASO % 0.4 % (0.0-1.0); EOS # 0.2 10*3/uL (0.0-0.4); EOS % 2.2 % (1.0-4.0); MEAN CELL VOLUME 93.5 fl (81.0-99.0); MEAN CORPUSCULAR HGB 30.1 pg (27.0-31.0); MEAN PLATELET VOLUME 9.6 fl (9.6-12.3); MONO # 0.6 10*3/uL (0.1-1.0); MONO % 8.0 % (3.0-9.0); NEUT # 4.0 10*3/uL (2.3-7.9); NEUT % 53.3 % (47.0-73.0); NUCLEATED RED BLOOD CELL 0.0 % (0.0-0.0); NUCLEATED RED BLOOD CELL 0.0 10*3/uL (0.0-0.0); PLATELET COUNT AUTOMATED 219 10*3/uL (130-400); RED CELL DISTRI WIDTH 13.1 % (0-14.5)
[2025-06-09 13:35] LABS: BUN 22.0 mg/dl (9-23); SGPT/ALT 12.0 U/L (5-49)
== END | disposition home or self-care (01) ==
LOC: LAB 12:32
PROVIDERS: ATTEND Specialist
DX: L03.90 Cellulitis, unspecified (principal)

== ENCOUNTER → 2025-08-09 | Outpatient (CLI) | payer MEDICARE | END | disposition home or self-care (01) | LOC: RAD 13:52 | PROVIDERS: ATTEND Internal Medicine | DX: M47.812 Spondylosis without myelopathy or radiculopathy, cervical region (principal); M50.31 Other cervical disc degeneration, high cervical region; M50.323 Other cervical disc degeneration at C6-C7 level ==